=== PATIENT | female | born 1940 | race Caucasian/White ===

== ENCOUNTER → 2017-12-05 09:39 | Outpatient (CLI) | payer MEDICARE, SELFPAY ==
--- NOTE | 2017-12-05 09:42 | MM_ITS ---
MM Dig screening mamm BI w/CAD ORDERING PHYSICIAN : Willie Durant MD PATIENT AGE: 77 years GENDER: Female COMPARISON: Bilateral mammogram May 2016 & March INDICATION: ITS.REASON: SCREENING no hormones no new complaints. Right breast tenderness. TECHNIQUE: Standard CC and MLO images were obtained. R2 CAD reviewed. FINDINGS: November replacement with overall low-density breast. RIGHT BREAST:No new areas of concern follow-up in one year. No new findings at the right breast account for the patient's right tenderness. No edema and no skin thickening no remarkable axillary nodes seen nor included on this images LEFT BREAST:Stable small nodular density inferior left breast is unchanged since March 2015.. Stable Benign-appearing nodule with minimal calcification can be followed. IMPRESSION: Stable mammogram with No significant new findings . No new areas of concern . Bilateral follow-up in one year recommended. Stable small nodular density inferior left breast. Follow-up in one year the adequate BI-RADS Category: 2 Benign Finding(s) RECOMMENDED FOLLOW-UP: 1YR 1 YEAR FOLLOW-UP (A letter has been sent to the patient regarding results of the study.)
== END ==
PROVIDERS: Family Provider Family Medicine; PCP Family Medicine; Visit Provider Family Medicine
DX: Z12.31 Encounter for screening mammogram for malignant neoplasm of breast (principal)
CPT/HCPCS: 77067

== ENCOUNTER → 2018-06-27 10:37 | Outpatient (CLI) | payer MEDICARE, SELFPAY ==
[2018-06-27 11:31] LABS: Basophils # 0.1 K/mm3 (0-0.2); Eosinophils # 0.3 K/mm3 (0.0-0.4); Eosinophils % 4.5 % (0.1-12.0); Hematocrit 40.4 % (37.0-47.0); Hemoglobin 12.6 g/dL (12.2-16.2); Lymphocytes # 2.9 K/mm3 (0.7-4.5); Lymphocytes % 41.9 % (10-50); Mean Corpuscular HGB Conc 31.1 g/dL (31.8-35.4); Mean Corpuscular Hemoglobin 21.2 pg (27.0-31.2); Mean Corpuscular Volume 68.2 fl (81-99); Mean Platelet Volume 7.8 fl (7.4-10.4); Monocytes # 0.6 K/mm3 (0.1-1.0); Monocytes % 8.1 % (1.7-9.3); Neutrophils # 3.1 K/mm3 (1.8-7.8); Neutrophils % 44.6 % (37.0-80.0); Platelet Count 186 K/mm3 (142-424); Red Blood Count 5.92 M/mm3 (4.20-5.40); Red Cell Distribution Width 15.2 % (11.5-17.5); White Blood Count 6.9 K/mm3 (4.8-10.8)
[2018-06-27 12:03] LABS: Alanine Aminotransferase 28 U/L (12-78); Albumin Level 3.9 gm/dL (3.4-5.0); Albumin/Globulin Ratio 1.2 (1.1-1.8); Anion Gap 14.4 mEq/L (5-15); Aspartate Amino Transferase 19 U/L (15-37); Bilirubin,Total 1.2 mg/dL (0.2-1.0); Calcium 9.5 mg/dL (8.5-10.1); Carbon Dioxide 29 mmol/L (21.0-32.0); Chloride 103 mmol/L (98-107); Creatinine,Serum 0.97 mg/dL (0.55-1.02); Estimated Glomerular Filt Rate 56 ml/min (>60); GFR (African American) 67 ML/MIN (>60); Globulin 3.3 gm/dl (1.3-3.2); Glucose 115 mg/dL (74-106); Potassium 4.4 mmoL/L (3.5-5.1); Sodium 142 mmol/L (136-145); Total Protein,Serum 7.2 gm/dL (6.4-8.2)
[2018-06-27 12:04] LABS: Alkaline Phosphatase 53 U/L (46-116)
[2018-06-27 12:09] LABS: Blood Urea Nitrogen 20 mg/dL (7-18)
[2018-06-27 18:02] VITALS: BMI 31.2
[2018-06-27 19:37] LABS: Ferritin 343 ng/mL (8-388)
[2018-06-29 08:17] LABS: Iron 135 ug/dL (27-139); UIBC 187 ug/dL (118-369)
[2018-06-29 11:02] LABS: Iron Saturation 42 % (15-55)
== END ==
PROVIDERS: Visit Provider Internal Medicine Medical Oncology
DX: D46.9 Myelodysplastic syndrome, unspecified (principal)
CPT/HCPCS: 36415; 80053; 82728; 83540; 83550; 85025

== ENCOUNTER → 2019-03-07 12:42 | Outpatient (CLI) | payer MEDICARE, SELFPAY ==
--- NOTE | 2019-03-07 12:45 | MM_ITS ---
PROCEDURE: MM DIG SCREENING MAMM BI W/CAD Patient Age:78Y CLINICAL INDICATION: SCREENING No hormones, no new complaints clinically. Noncontributory family history. COMPARISON: [facility]MSB DIG MAMM-SCREEN LIT from 03/26/2015 DMDBAV DIG MAMM-DX LIT W ADD VIEWS from 04/12/2015 [facility] DIG MAMM-SCREEN LIT W/CAD from 05/08/2016 DMDXUAVR DIG MAMM-DX UNI A/VW-RT W/CAD from 06/26/2016 [facility] MM Dig screening mamm BI w/CAD from 12/05/2017 TECHNIQUE: Standard CC and MLO images were obtained. R2 CAD reviewed. FINDINGS: Low-density breast with diffuse fatty replacement.. Mammography is most optimal screening tool breast of this low-density character. No new areas of significant concern. Right breast: Stable. Follow-up in 1 year recommended . Tiny area of nodularity lateral breast CC view unchanged since studies dating back to 2014 Left breast: Area of nodularity inferior left breast with small calcification again noted and appears stable to MLO view but margins not quite as well defined on CC view but I believe this area can be followed in 1 year given its longstanding stability on MLO view. Stable since at least 2014. A single calcification is noted at its inferior margin But would encourage ongoing follow-up in 1 year IMPRESSION: Stable bilateral mammogram. No new areas significant concern Small nodular densities bilaterally appear stable Specifically note small 4.3 mm area inferior left breast-no significant change since 2014 However continue to suggest annual mammography to follow these features Follow-up in 1 year would be recommended and encouraged BI-RAD Category: 2 Benign Finding(s) FOLLOW-UP: 1YR 1 Year Follow-up (A letter has been sent to the patient regarding results of the study.) Dictated by: Ahsan Laurent MD 03/09/2019 10:28 Electronically signed by Ahsan Laurent MD in [place] 03/12/2019 10:07
== END ==
PROVIDERS: PCP Family Medicine; Visit Provider Family Medicine
DX: Z12.31 Encounter for screening mammogram for malignant neoplasm of breast (principal)
CPT/HCPCS: 77067

== ENCOUNTER → 2020-01-08 12:06 | Outpatient (CLI) | payer MEDICARE, SELFPAY ==
--- NOTE | 2020-01-08 | XR_ITS ---
PROCEDURE: XR WRIST LT 2V CLINICAL INDICATION: PAIN OF L THUMB COMPARISON: No exams were available for comparison FINDINGS: No fracture or dislocation. No lytic or blastic change. There is normal mineralization. The joint spaces are well-preserved. No significant degenerative/arthritic changes. No erosive changes evident. Other findings:None. IMPRESSION: No acute findings. Dictated by: Jose Francisco Arenas MD 01/08/2020 16:28 Jose Francisco Arenas MD in [facility] 01/08/2020 16:28
--- NOTE | 2020-01-08 | XR_ITS ---
PROCEDURE: XR FINGER LT MIN 2V CLINICAL INDICATION: PAIN OF L THUMB COMPARISON: CR XR WRIST LT 2V from 01/08/2020 FINDINGS: No fracture or dislocation. No lytic or blastic change. There is normal mineralization. Osteoarthritic changes are present at the interphalangeal joint. There is a separate calcific density along the dorsal aspect of the interphalangeal joint which could be due to an avulsion fracture age indeterminate. Other findings:None. 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
== END ==
PROVIDERS: PCP Family Medicine; Visit Provider Family Medicine
DX: M79.645 Pain in left finger(s) (principal)
CPT/HCPCS: 73100; 73140

== ENCOUNTER → 2020-01-16 07:40 | Outpatient (CLI) | payer MEDICARE, SELFPAY ==
--- NOTE | 2020-01-16 07:44 | MR_ITS ---
PROCEDURE: MR LUMBAR SPINE WO CON CLINICAL INDICATION: LUMBAGO WITH SCIATICA bilateral posterior leg pain and tingling. x1yr. no injury. prior x-ray- 08-15-16 COMPARISON: CR LS5 LUMBAR SPINE 5 VIEWS from 08/15/2016 TECHNIQUE: Routine multiplanar multi echo sequences are performed without and with gadolinium enhancement. FINDINGS: There is normal alignment. The spinal cord ends at the T12-L1 level. There is multilevel lower thoracic and lumbar spondylosis as detailed below T10-T11: Degenerative disc disease. T11-T12: Degenerative disc disease with bulging disc with canal stenosis. There may be a small central disc protrusion. This level is only imaged in the sagittal plane. There appears to be some impingement upon the anterior and central aspect of the cord with mild cord flattening. T12-L1: Degenerative disc disease with type 1 endplate changes anteriorly. There is bulging disc with facet ligamentum hypertrophy with bilateral lateral recess narrowing L1-L2: Degenerative disc disease with anterior osteophytes and 2 endplate changes with bulging disc along with facet and ligamentum hypertrophy causing right lateral recess narrowing and moderate to severe right-sided foraminal narrowing. There is canal stenosis. L2-L3: Degenerate disc disease with bulging disc with facet and ligamentum hypertrophy with bilateral lateral recess narrowing and moderate to severe bilateral foraminal narrowing with canal stenosis. The canal measures 8 mm. L3-L4: Degenerate disc disease with bulging disc along with facet and ligamentum hypertrophy with moderate to severe bilateral lateral recess and foraminal narrowing. L4-5: Degenerate disc disease with bulging disc. There is 4 mm anterolisthesis of L4 with severe facet and ligamentum hypertrophy with severe bilateral lateral recess and foraminal narrowing and severe canal stenosis with canal measuring 6 mm in AP dimension. L5-S1: Bulging disc with facet ligamentum hypertrophy with mild bilateral foraminal narrowing left greater than right. IMPRESSION: Abnormal MRI of the lumbar spine. There is multilevel lumbar spondylosis with bulging disc along with facet and ligamentum hypertrophy and endplate spurring with resultant varying degrees lateral recess and foraminal narrowing and canal stenosis greatest at the L4-5 level. Please see above for detailed description at each level. Dictated by: Jose Francisco Arenas MD 01/17/2020 12:23 Jose Francisco Arenas MD in [facility] 01/17/2020 12:23
== END ==
PROVIDERS: PCP Family Medicine; Visit Provider Family Medicine
DX: M54.42 Lumbago with sciatica, left side (principal); M54.41 Lumbago with sciatica, right side; M51.36 Other intervertebral disc degeneration, lumbar region; M47.816 Spondylosis without myelopathy or radiculopathy, lumbar region
CPT/HCPCS: 72148; 76376

== ENCOUNTER 2020-10-16 17:00 | Observation (INO) | payer MEDICARE, SELFPAY ==
[2020-10-16] VITALS (10 sets, daily range): BP systolic 99–122; BP diastolic 45–57; PULSE 64–78; RESP 18; TEMP 36.7–37.8; O2SAT 93–98; BMI 27.8; BMI 30.4
[2020-10-16 17:52] LABS: Eosinophils # 0.1 K/mm3 (0.0-0.4); Eosinophils % 0.8 % (0.1-12.0)
[2020-10-16 17:55] LABS: Alanine Aminotransferase 219 U/L (12-78); Albumin/Globulin Ratio 1.3 (1.1-1.8); Alkaline Phosphatase 68 U/L (38-126); Aspartate Amino Transferase 344 U/L (14-36); Basophils % 0.4 % (0.1-2.0); Bilirubin,Total 2.3 mg/dl (0.2-1.3); Blood Urea Nitrogen 19 mg/dl (7-17); Calcium 8.8 mg/dl (8.4-10.2); Carbon Dioxide 25 mmol/L (22.0-30.0); Chloride 99 mmol/L (98-107); Creatinine Clearance Estimated 50 mL/min (50-200); Estimated Glomerular Filt Rate 60 ml/min (>60); GFR (African American) 73 ML/MIN (>60); Globulin 3.1 g/dL (1.3-3.2); Glucose 114 mg/dl (74-100); Hematocrit 34.1 % (37.0-47.0); Hemoglobin 10.9 g/dL (12.2-16.2); Lymphocytes # 0.2 K/mm3 (0.7-4.5); Lymphocytes % 4.2 % (10-50); Mean Corpuscular HGB Conc 31.9 g/dL (31.8-35.4); Mean Corpuscular Volume 65.8 fl (81-99); Mean Platelet Volume 7.7 fl (7.4-10.4); Monocytes # 0.2 K/mm3 (0.1-1.0); Monocytes % 3.8 % (1.7-9.3); Neutrophils # 5.2 K/mm3 (1.8-7.8); Neutrophils % 90.8 % (37.0-80.0); Platelet Count 123 K/mm3 (142-424); Red Blood Count 5.18 M/mm3 (4.20-5.40); Red Cell Distribution Width 14.4 % (11.5-17.5); Sodium 133 mmol/L (136-145); Total Protein,Serum 7.1 g/dl (6.3-8.2); White Blood Count 5.7 K/mm3 (4.8-10.8)
[2020-10-16 17:56] LABS: MANUAL DIFFERENTIAL MANUAL DIFFERENTIAL (MANUAL DIFF)
[2020-10-16 18:13] LABS: Anisocytosis 2+; Eosinophils % 1 % (0-3); Hypochromasia 2+; Lymphocytes % 6 % (10-50); Microcytosis 2+; Monocytes % 3 % (2-9); Neutrophils % 89 % (42-76); Platelet Estimate Slight Decrease; Total Cells Counted 100
--- NOTE | 2020-10-16 18:16 | CT_ITS ---
PROCEDURE INFORMATION: Exam: CT Abdomen And Pelvis With Contrast Exam date and time: 10/16/20 06:16 PM Age: 79 years old Clinical indication: Other: Painful urination; Additional info: Abd pain TECHNIQUE: Imaging protocol: Computed tomography of the abdomen and pelvis with contrast. Radiation optimization: All CT scans at this facility use at least one of these dose optimization techniques: automated exposure control; mA and/or kV adjustment per patient size (includes targeted exams where dose is matched to clinical indication); or iterative reconstruction. Contrast material: ISOVUE; Contrast volume: 75 ml; Contrast route: IV; COMPARISON: No relevant prior studies available. FINDINGS: Tubes, catheters and devices: None noted. Lungs: Lung bases appear clear. Heart: No significant coronary calcifications. No cardiomegaly. No significant pericardial effusion. Liver: Normal. No mass. Gallbladder and bile ducts: Cholecystectomy. No ductal dilation. Pancreas: Normal. No ductal dilation. Spleen: Normal. No splenomegaly. Adrenal glands: Normal. No mass. Kidneys and ureters: 17 mm right upper pole renal cystic mass, Bosniak 2 F. No hydronephrosis. Stomach and bowel: Unremarkable. No obstruction. No mucosal thickening. Appendix: No evidence of appendicitis. Intraperitoneal space: Unremarkable. No free air. No significant fluid collection. Retroperitoneal space: No significant retroperitoneal inflammatory changes are noted. Vasculature: Unremarkable. No abdominal aortic aneurysm. Lymph nodes: Unremarkable. No enlarged lymph nodes. Urinary bladder: Unremarkable as visualized. Reproductive: Unremarkable as visualized. Bones/joints: Unremarkable. No acute fracture. Soft tissues: Small right upper quadrant anterior abdominal wall hernia 8 mm defect contains fat with mild inflammatory change. Possible trocar site for cholecystectomy. IMPRESSION: 1. 17 mm right upper pole cyst, Bosniak 2 F. 2. Cholecystectomy. 3. Small defect anterior abdominal wall contains fat. COMMENTS: Consistent with the [employer]'s Incidental Findings Committee white paper (J Am Cheryl Radiol 2018): Any incidental renal lesion less than 1 cm or classified as too small to characterize, or any incidental cystic renal lesion characterized as simple-appearing, is likely benign. No follow-up imaging is recommended for these lesions per consensus recommendations based on imaging criteria.
--- NOTE | 2020-10-16 18:17 | HMH.EDGENADL ---
ED Disposition Clinical Impression: Acute UTI, Transaminitis Disposition: Admitted As Inpatient Condition on Discharge: Fair Referrals: Willie Durant MD [Primary Care Provider] - - Critical Care Critical Care Time: No Attestation: On 10/16/20, the high probability of a clinically significant, sudden or life threatening deterioration of the following system(s) required my full and direct attention, intervention and personal management. The time I documented below is in addition to time spent performing reported procedures but includes the following listed in this critical care notation. Medical Decision Making - Medical Records Medical records reviewed: Yes: I reviewed the patient's medical records. - Chai Inquiry Pt receiving controlled substance: No Vital Signs: 10/16/20 17:01 10/16/20 17:30 10/16/20 18:00 Temperature 100.1 F H Temperature Source Oral Pulse Rate 78 68 Pulse Rate [Right] 74 Respiratory Rate 18 Blood Pressure 100/45 L 109/46 L Blood Pressure [Right Arm] 122/51 L Blood Pressure Mean [Right Arm] 74 02 Sat by Pulse Oximetry 98 94 L 93 L 10/16/20 19:00 Temperature Temperature Source Pulse Rate 66 Pulse Rate [Right] Respiratory Rate Blood Pressure 99/46 L Blood Pressure [Right Arm] Blood Pressure Mean [Right Arm] 02 Sat by Pulse Oximetry 96 - Lab Data Lab Results 10/16/20 17:23: WBC 5.7, RBC 5.18, Hgb 10.9 L, Hct 34.1 L, MCV 65.8 L, MCH 21.0 L, MCHC 31.9, RDW 14.4, Plt Count 123 L, MPV 7.7, Neut % (Auto) 90.8 H, Lymph % (Auto) 4.2 L, [place] % (Auto) 3.8, Eos % (Auto) 0.8, Baso % (Auto) 0.4, Neut # (Auto) 5.2, Lymph # (Auto) 0.2 L, [place] # (Auto) 0.2, Eos # (Auto) 0.1, Baso # (Auto) 0.0, Total Counted 100, Neutrophils % (Manual) 89 H, Band Neutrophils % 1.0, Lymphocytes % (Manual) 6 L, Monocytes % (Manual) 3, Eosinophils % (Manual) 1, Platelet Estimate Slight decrease, Hypochromasia 2+, Anisocytosis 2+, Microcytosis 2+ 10/16/20 17:23: Sodium 133 L, Potassium 3.0 L, Chloride 99, Carbon Dioxide 25, Anion Gap 12.0, BUN 19 H, Creatinine 0.90, Estimated Creat Clear 50, Estimated GFR 60, Est GFR ( Amer) 73, Glucose 114 H, Calcium 8.8, Total Bilirubin 2.3 H, AST 344 H*, ALT 219 H, Alkaline Phosphatase 68, Total Protein 7.1, Albumin 4.0, Globulin 3.1, Albumin/Globulin Ratio 1.3 Result diagrams: 10/16/20 17:23 10/16/20 17:23 Orders (Tests/Meds): ED MEDICATIONS Generic Name Dose Route Start Last Admin Trade Name Freq PRN Reason Stop Dose Admin Sodium Chloride 1,000 mls @ 999 mls/hr 10/16/20 17:45 10/16/20 17:55 Sod Chlor 0.9% 1000ml Bag IV 10/16/20 18:45 999 mls/hr .Q1H1M NIKITA Administration Ceftriaxone Sodium 1 gm/ 50 mls @ 100 mls/hr 10/16/20 17:45 10/16/20 17:56 Sodium Chloride IV 10/30/20 17:44 100 mls/hr Q24H NIKITA Administration Protocol Discontinued Medications Generic Name Dose Route Start Last Admin Trade Name Freq PRN Reason Stop Dose Admin Iopamidol 75 ml 10/16/20 18:36 10/16/20 18:37 Iopamidol-370 (76%);100ml Bottle IV 10/16/20 18:37 75 ml ONCE ONE Administration Sodium Chloride 10 ml 10/16/20 18:36 10/16/20 18:37 Sodium Chloride 0.9% 10ml Syr (Rad Only) IV 10/16/20 18:37 10 ml ONCE ONE Administration ORDERS Category Date Time Status Hepatitis Panel (4) Stat Lab 10/16/20 19:41 Ordered Urinalysis and Microscopic Stat Lab 10/16/20 17:43 Ordered - CT Data CT Scan: Abdomen, Pelvis Time Received: 19:[address] Reviewed: Yes: I have reviewed the patient's CT results, I have viewed the radiologist's interpretation Findings Narrative: IMPRESSION: 1. 17 mm right upper pole cyst, Bosniak 2 F. 2. Cholecystectomy. 3. Small defect anterior abdominal wall contains fat. - Reevaluation(s) Time: 19:54 Reevaluation #1: On reevaluation, patient is feeling better. She does have some elevated transaminase levels. These appear to be new. Hepatitis panel sent off. Patient be contin
[2020-10-16 18:27] LABS: Coronavirus 19, PCR Not Detected (NotDetected); Influenza A, PCR Not Detected (NotDetected); Influenza B, PCR Not Detected (NotDetected)
--- NOTE | 2020-10-16 19:56 | PC.NURSE ---
paged dr valle @ this time
--- NOTE | 2020-10-16 20:03 | PC.NURSE ---
JOSHUA Pike on phone with dr valle
[2020-10-16 20:15] LABS: Microscopic, Urine URINE MICROSCOPIC (MICROSCOPIC)
[2020-10-16 20:20] LABS: Appearance,Urine SL CLOUDY (Clear); Bilirubin,Urine Negative (Negative); Blood, Urine Negative (Negative); Color,Urine YELLOW (Yellow); Glucose,Urine (UA) Negative (Negative); Ketones,Urine Negative (Negative); Leukocyte Esterase,Urine Negative (Negative); Nitrate,Urine Negative (Negative); PH,Urine 6.5 (5.0-8.5); Protein,Urine Negative (Negative); Specific Gravity, Urine <= 1.005 (1.005-1.030)
[2020-10-16 20:27] LABS: Bacteria,Urine Trace /lpf; WBC,Urine Occasional #/hpf (0-3)
--- NOTE | 2020-10-16 21:01 | PC.NURSE ---
patient up to floor via Stretcher.
[2020-10-17 06:08] LABS: Eosinophils # 0.1 K/mm3 (0.0-0.4); Lymphocytes # 0.5 K/mm3 (0.7-4.5); Lymphocytes % 10.5 % (10-50); Monocytes # 0.2 K/mm3 (0.1-1.0); Neutrophils # 4.2 K/mm3 (1.8-7.8); Red Cell Distribution Width 14.8 % (11.5-17.5); White Blood Count 5.1 K/mm3 (4.8-10.8)
[2020-10-17 06:12] LABS: Chloride 101 mmol/L (98-107); Sodium 132 mmol/L (136-145)
[2020-10-17 06:14] LABS: Alanine Aminotransferase 148 U/L (12-78); Aspartate Amino Transferase 157 U/L (14-36); Blood Urea Nitrogen 16 mg/dl (7-17); Creatinine Clearance Estimated 53 mL/min (50-200); Estimated Glomerular Filt Rate 69 ml/min (>60); GFR (African American) 84 ML/MIN (>60)
[2020-10-17 06:15] LABS: Albumin Level 3.2 g/dl (3.5-5.0); Albumin/Globulin Ratio 1.1 (1.1-1.8); Alkaline Phosphatase 63 U/L (38-126); Anion Gap 5.8 mEq/L (5-15); Calcium 8.1 mg/dl (8.4-10.2); Carbon Dioxide 28 mmol/L (22.0-30.0); Globulin 2.8 g/dL (1.3-3.2); Glucose 91 mg/dl (74-100)
[2020-10-17 06:16] LABS: Basophils % 0.4 % (0.1-2.0); Eosinophils % 2.3 % (0.1-12.0); Hematocrit 29.8 % (37.0-47.0); Hemoglobin 9.9 g/dL (12.2-16.2); Mean Corpuscular HGB Conc 33.3 g/dL (31.8-35.4); Mean Corpuscular Hemoglobin 21.3 pg (27.0-31.2); Mean Platelet Volume 7.8 fl (7.4-10.4); Neutrophils % 82.8 % (37.0-80.0); Platelet Count 108 K/mm3 (142-424); Red Blood Count 4.65 M/mm3 (4.20-5.40)
--- NOTE | 2020-10-17 06:16 | PC.NURSE ---
No acute changes since pt arrived to the floor. Pt denies any discomfort at this time. Pt has ambulated to BR without any difficulty. Medications administered per mar. No concerns at this time. Will continue to monitor.
[2020-10-17 06:18] LABS: Potassium 2.8 mmoL/L (3.5-5.1)
[2020-10-17 07:50] VITALS: BP 101/45; PULSE 67; RESP 14; TEMP 37.8; O2SAT 94
[2020-10-17 08:00] VITALS: PULSE 67; RESP 14; O2SAT 94
--- NOTE | 2020-10-17 08:27 | P.CONPHA_ITS ---
[facility] Pharmacy VTE Monitoring - Patient Demographics Admission date: 10/16/20 Report Date: 10/17/20 Time: 08:27 Allergies/Adverse Reactions: Patient Allergies egg yolk Allergy (Severe, Verified 10/16/20 21:17) rash Milk Containing Products Allergy (Severe, Verified 10/16/20 21:17) rash Height: 1.55 m Weight: 73.119 kg Patient Problems: Current Active Problems Acute UTI (Acute) Transaminitis (Acute) - VTE Risk Labs: VTE Related Lab Results Hgb 9.9 g/dL (12.2-16.2) L 10/17/20 05:34 Hct 29.8 % (37.0-47.0) L 10/17/20 05:34 Plt Count 108 K/mm3 (142-424) L 10/17/20 05:34 BUN 16 mg/dl (7-17) 10/17/20 05:34 Creatinine 0.80 mg/dl (0.52-1.04) 10/17/20 05:34 Estimated Creat Clear 53 mL/min (50-200) 10/17/20 05:34 Was VTE Risk Assessment Performed: Yes VTE Score: 3 VTE Risk Level: Low Risk - Prophylaxis VTE Prophylaxis Ordered?: Yes Types of VTE Prophylaxis: TEDS Knee High, Pharmacological Location of Applied Device: Bilateral Lower Extremeties Pharmacologic Type: Heparin
--- NOTE | 2020-10-17 08:50 | HMH.PHAINT ---
MEDICATION RECONCILIATION COMPLETED ON PATIENT USING EXTERNAL FILL HISTORY FROM PHARMACY AND PATIENT'S OWN MEDICATIONS. -LOIS CHINCHILLAD
--- NOTE | 2020-10-17 09:39 | HMH.HP ---
*Admission Date: 10/16/20 *Chief complaint: Weakness *History of present illness: 79 year old female presented to [facility] ER yesterday complaining of being to weak to stand. Patient was diagnosed with a UTI on 10/15/20 after having a 3 day history of urinary frequency and dysuria. A urine culture was ordered and she was prescribed Macrobid. She states she started taking Macrobid that day but began to have fevers and chills the next evening and became progressively weak. She did not feel like eating and also had some headache. [facility] History Medical History: Reports:: Anxiety, Hypertension *Have you ever received a pneumonia vaccine?: Yes *Have you received a flu vaccine this season?: Yes Other Medical History: Reports: Hypothyroidism, Other (Myelodysplastic syndrome) Other Surgeries: Yes: Cholecystectomy, Colonoscopy, Dilation and Curettage - *Social History Smoking Status: Never smoker Alcohol Intake: never *Occupational Status:: retired *Travel in the last 8 weeks: None Family Hx:: Cancer Review of Systems - Constitutional Reports chills, Reports fever(s) - Eyes Denies change in vision - ENT Denies bleeding gums - *Cardiovascular Denies chest pain - *Respiratory Denies cough - *Gastrointestinal Denies abdominal pain - *Musculoskeletal Denies joint pain - Integumentary/Breasts Denies rash - *Neurologic Reports headache(s) - Psychiatric Reports anxiety, Denies behavioral changes, Denies depression, Denies irritability - Hematologic/Lymphatic Denies easy bruising Meds Home Medications Medication Instructions Recorded Confirmed Type atenolol 50 mg-chlorthalidone 25 1 tab PO DAILY 06/27/18 10/16/20 History mg tablet levothyroxine 100 mcg capsule 100 mcg PO DAILY 06/27/18 10/16/20 History mecobalamin (vitamin B12) 1,000 1,000 mcg SL DAILY 06/27/18 10/17/20 History mcg disintegrating tablet,sublingual Aspirin 81 mg PO DAILY 10/16/20 10/17/20 History Nitrofurantoin Monohyd/M-Cryst 100 mg PO BID 10/16/20 10/16/20 History [Nitrofurantoin Placer-Mcr 100 mg] Escitalopram Oxalate [Lexapro] 5 mg PO DAILY 10/17/20 10/17/20 History Allergies Allergy/AdvReac Type Severity Reaction Status Date / Time egg yolk Allergy Severe rash Verified 10/16/20 21:17 Milk Containing Products Allergy Severe rash Verified 10/16/20 21:17 Exam Vital signs and Labs for Last 24 Hours: Temp Pulse Resp BP Pulse Ox 100.1 F H 67 14 101/45 L 94 L 10/17/20 07:50 10/17/20 08:00 10/17/20 08:00 10/17/20 07:50 10/17/20 08:00 Laboratory Results - last 24 hr 10/16/20 17:23: WBC 5.7, RBC 5.18, Hgb 10.9 L, Hct 34.1 L, MCV 65.8 L, MCH 21.0 L, MCHC 31.9, RDW 14.4, Plt Count 123 L, MPV 7.7, Neut % (Auto) 90.8 H, Lymph % (Auto) 4.2 L, [place] % (Auto) 3.8, Eos % (Auto) 0.8, Baso % (Auto) 0.4, Neut # (Auto) 5.2, Lymph # (Auto) 0.2 L, [place] # (Auto) 0.2, Eos # (Auto) 0.1, Baso # (Auto) 0.0, Total Counted 100, Neutrophils % (Manual) 89 H, Band Neutrophils % 1.0, Lymphocytes % (Manual) 6 L, Monocytes % (Manual) 3, Eosinophils % (Manual) 1, Platelet Estimate Slight decrease, Hypochromasia 2+, Anisocytosis 2+, Microcytosis 2+ 10/16/20 17:23: Sodium 133 L, Potassium 3.0 L, Chloride 99, Carbon Dioxide 25, Anion Gap 12.0, BUN 19 H, Creatinine 0.90, Estimated Creat Clear 50, Estimated GFR 60, Est GFR ( Amer) 73, Glucose 114 H, Calcium 8.8, Total Bilirubin 2.3 H, AST 344 H*, ALT 219 H, Alkaline Phosphatase 68, Total Protein 7.1, Albumin 4.0, Globulin 3.1, Albumin/Globulin Ratio 1.3 10/16/20 20:00: Urine Color Yellow, Urine Appearance Sl cloudy, Urine pH 6.5, Ur Specific [place] <= 1.005, Urine Protein Negative, Urine Glucose (UA) Negative, Urine Ketones Negative, Urine Blood Negative, Urine Nitrate Negative, Urine Bilirubin Negative, Urine Urobilinogen 1.0, Ur Leukocyte Esterase Negative, Urine WBC Occasional, Ur Squamous Epith Cells 5-10, Urine Bacteria Trace 10/17/20 05:34: WBC 5.1, RBC 4.65, Hgb 9.9 L, Hct 29.8 L, MCV 64.0 L, M
--- NOTE | 2020-10-17 11:26 | PC.NURSE ---
Pt showered independently, tolerated well. Linens changed per staff.
[2020-10-17 15:54] VITALS: BP 115/57; PULSE 61; RESP 16; TEMP 36.5; O2SAT 99
--- NOTE | 2020-10-17 17:28 | PC.NURSE ---
Pt has been pleasant and cooperative this shift. A&O X4. No complaints of pain or SOA. Pt is on room air with sats. >90%. Lungs CTA. No edema noted. Skin is C/D/I. Pt ambulates with stand-by assistance to/from the bathroom and throughout the room. Pt voids clear, yellow urine without issue. No BM thus far today. Appetite is good and pt eats 75-100% of every meal. 20 G peripheral IV in the RT AC is patent and infusing D5W NS w/ 40 K+ @ 100 ML/HR. VSS. Call light within reach. Will continue to monitor.
[2020-10-17 19:55] VITALS: BP 125/61; PULSE 58; RESP 16; TEMP 36.7; O2SAT 97
[2020-10-18 03:21] VITALS: BP 147/67; PULSE 65; RESP 16; TEMP 36.8; O2SAT 98
[2020-10-18 05:00] VITALS: BMI 31.8
--- NOTE | 2020-10-18 06:00 | PC.NURSE ---
patient has rested well throughout shift. has voiced no complains of nausea, vomiting, diarrhea, pain or soa. ambulates to restroom without difficulty.
[2020-10-18 06:15] LABS: Basophils % 0.6 % (0.1-2.0); Eosinophils # 0.4 K/mm3 (0.0-0.4); Eosinophils % 10.1 % (0.1-12.0); Hematocrit 30.9 % (37.0-47.0); Hemoglobin 9.8 g/dL (12.2-16.2); Lymphocytes # 1.2 K/mm3 (0.7-4.5); Lymphocytes % 27.4 % (10-50); Mean Corpuscular HGB Conc 31.7 g/dL (31.8-35.4); Mean Corpuscular Hemoglobin 21.1 pg (27.0-31.2); Mean Corpuscular Volume 66.5 fl (81-99); Mean Platelet Volume 8.3 fl (7.4-10.4); Monocytes # 0.3 K/mm3 (0.1-1.0); Monocytes % 7.9 % (1.7-9.3); Neutrophils # 2.4 K/mm3 (1.8-7.8); Platelet Count 100 K/mm3 (142-424); Red Blood Count 4.65 M/mm3 (4.20-5.40); Red Cell Distribution Width 14.9 % (11.5-17.5); White Blood Count 4.4 K/mm3 (4.8-10.8)
[2020-10-18 06:28] LABS: Chloride 109 mmol/L (98-107); Sodium 138 mmol/L (136-145)
[2020-10-18 06:30] LABS: Alanine Aminotransferase 134 U/L (12-78); Aspartate Amino Transferase 111 U/L (14-36); Blood Urea Nitrogen 10 mg/dl (7-17); Creatinine Clearance Estimated 53 mL/min (50-200); Estimated Glomerular Filt Rate 81 ml/min (>60); GFR (African American) 98 ML/MIN (>60)
[2020-10-18 06:31] LABS: Albumin Level 3.3 g/dl (3.5-5.0); Albumin/Globulin Ratio 1.1 (1.1-1.8); Alkaline Phosphatase 72 U/L (38-126); Bilirubin,Total 0.9 mg/dl (0.2-1.3); Calcium 8.2 mg/dl (8.4-10.2); Carbon Dioxide 25 mmol/L (22.0-30.0); Globulin 2.9 g/dL (1.3-3.2); Glucose 109 mg/dl (74-100); Total Protein,Serum 6.2 g/dl (6.3-8.2)
[2020-10-18 08:00] VITALS: PULSE 66; RESP 16; O2SAT 96
[2020-10-18 08:04] VITALS: BP 122/59; PULSE 66; RESP 16; TEMP 36.9; O2SAT 96
--- NOTE | 2020-10-18 08:55 | HMH.ACPN2 ---
Internal Medicine - PN: Subj *Date: 10/18/20 *Time: 08:55 Interval history: Patient feels better today, no new complaints. Exam Vital signs and Labs for Last 24 Hours: Temp Pulse Resp BP Pulse Ox 98.4 F 66 16 122/59 L 96 10/18/20 08:04 10/18/20 08:04 10/18/20 08:04 10/18/20 08:04 10/18/20 08:04 Laboratory Results - last 24 hr 10/18/20 05:38: WBC 4.4 L, RBC 4.65, Hgb 9.8 L, Hct 30.9 L, MCV 66.5 L, MCH 21.1 L, MCHC 31.7 L, RDW 14.9, Plt Count 100 L, MPV 8.3, Neut % (Auto) 54.0, Lymph % (Auto) 27.4, [place] % (Auto) 7.9, Eos % (Auto) 10.1, Baso % (Auto) 0.6, Neut # (Auto) 2.4, Lymph # (Auto) 1.2, [place] # (Auto) 0.3, Eos # (Auto) 0.4, Baso # (Auto) 0.0 10/18/20 05:38: Sodium 138, Potassium 5.0 D, Chloride 109 H, Carbon Dioxide 25, Anion Gap 9.0, BUN 10 D, Creatinine 0.70, Estimated Creat Clear 53, Estimated GFR 81, Est GFR ( Amer) 98, Glucose 109 H, Calcium 8.2 L, Total Bilirubin 0.9, AST 111 H D, ALT 134 H, Alkaline Phosphatase 72, Total Protein 6.2 L, Albumin 3.3 L, Globulin 2.9, Albumin/Globulin Ratio 1.1 Vital Signs - 24 hr 10/17/20 15:54 10/17/20 19:55 10/18/20 03:21 Temperature 97.7 F 98.1 F 98.2 F Pulse Rate [Apical] 61 Pulse Rate [Left Brachial] Pulse Rate [Right] 58 L 65 Respiratory Rate 16 16 16 Blood Pressure [Left Arm] Blood Pressure [Right Arm] 115/57 L 125/61 147/67 H 02 Sat by Pulse Oximetry 99 97 98 10/18/20 08:04 Temperature 98.4 F Pulse Rate [Apical] Pulse Rate [Left Brachial] 66 Pulse Rate [Right] Respiratory Rate 16 Blood Pressure [Left Arm] 122/59 L Blood Pressure [Right Arm] 02 Sat by Pulse Oximetry 96 I & O for Last 24 hours: Intake & Output 10/15/20 10/16/20 10/17/20 10/18/20 23:59 23:59 23:59 23:59 Intake Total 1000 / 1000 2824 / 2824 Output Total 450 / 450 Balance 1000 / 1000 2374 / 2374 Weight 161 lb 3.2 oz 168 lb 7 oz - Constitutional no acute distress - *Routine HEENT Exam Head: Present: normocephalic Eye: Present: EOMI ENT: Present: mucous membranes moist - *Routine Neck Exam Present: supple. Absent: lymphadenopathy - *Routine Respiratory Exam Present: CTA bilaterally - *Routine Cardiovascular Exam Present: RRR - *Routine Abdominal Exam Present: soft, normoactive bowel sounds. Absent: tenderness - *Routine Extremities Exam Absent: cyanosis, clubbing, edema - *Routine Skin Exam Present: warm. Absent: rash - *Routine Neurological Exam Present: alert, oriented X3 Assessment and Plan (1) Acute UTI Status: Acute Category: Medical Code(s): N39.0 - Urinary tract infection, site not specified (2) HTN (hypertension) Status: Acute Category: Medical Code(s): I10 - Essential (primary) hypertension (3) Hypothyroid Status: Acute Category: Medical Code(s): E03.9 - Hypothyroidism, unspecified (4) MDS (myelodysplastic syndrome) Status: Acute Category: Medical Code(s): D46.9 - Myelodysplastic syndrome, unspecified (5) Anxiety Status: Acute Category: Medical Code(s): F41.9 - Anxiety disorder, unspecified (6) Transaminitis Status: Acute Category: Medical Code(s): R74.01 - Elevation of levels of liver transaminase levels (7) Hypokalemia Status: Acute Category: Medical Code(s): E87.6 - Hypokalemia (8) Weakness Status: Acute Category: Medical Code(s): R53.1 - Weakness - Assessment and plan all Dx Assessment and Plan for all problems:: Patient has improved, possible home later today with oral antibiotics.
--- NOTE | 2020-10-18 09:44 | SW/DCPLANNER ---
PATIENT REQUESTED A SITTERS LIST THIS MORNING FOR HER THAT SHE BROUGHT HOME FROM [facility]... I PROVIDED HER WITH THE LIST AND ENCOURAGED HER TO CHECK REFERENCES... SHE WILL DISCHARGE HOME TODAY AND FAMILY WILL BE STAYING WITH HER UNTIL SHE GETS BACK ON HER FEET. NO OTHER DISCHARGE PLANNING NECESSARY AT THIS TIME..DISCHARGE HOME...
[2020-10-19 06:03] LABS: Hep A Ab, IgM Negative (Negative); Hepatitis B Core Antibody IgM Negative (Negative); Hepatitis B Surface Antigen Negative (Negative); Hepatitis C Antibody <0.1 s/co ratio (0.0-0.9)
--- NOTE | 2020-10-21 16:33 | HMH.DCSUM ---
General - General Admission date:: 10/16/20 Discharge date: 10/18/20 HPI HPI: 79 year old female presented to [facility] ER yesterday complaining of being too weak to stand. Patient was diagnosed with a UTI on 10/15/20 after having a 3 day history of urinary frequency and dysuria. A urine culture was ordered and she was prescribed Macrobid. She states she started taking Macrobid that day but began to have fevers and chills the next evening and became progressively weak. She did not feel like eating and also had some headache. Hospital Course Hospital Course: The patient had an abdominal pelvic CT showing a 17 mm right upper pole cyst, previous cholecystectomy, and a small defect in the anterior abdominal wall containing fat. She was admitted and started on Rocephin. Her LFTs were elevated but did improve. Her potassium was replaced. By 10/18/2020, she felt better and was stable to be discharged home on oral antibiotics. She will follow-up with Dr. Durant in the office. Objective Vital signs: Temp Pulse Resp BP Pulse Ox 98.4 F 66 16 122/59 L 96 10/18/20 08:04 10/18/20 08:04 10/18/20 08:04 10/18/20 08:04 10/18/20 08:04 Narrative: - Constitutional no acute distress - *Routine HEENT Exam Head: Present: normocephalic Eye: Present: EOMI, PERRL ENT: Present: mucous membranes moist - *Routine Neck Exam Present: supple. Absent: lymphadenopathy - *Routine Respiratory Exam Present: CTA bilaterally - *Routine Cardiovascular Exam Present: RRR - *Routine Abdominal Exam Present: soft, normoactive bowel sounds. Absent: tenderness - *Routine Rectal Exam Rectal:: deferred - *Routine Genitalia Exam Genitalia:: deferred - *Routine Extremities Exam Absent: cyanosis, clubbing, edema - Routine Back/Spine/Pelvis Exam Back/Spine: Absent: CVA tenderness - *Routine Skin Exam Present: warm. Absent: rash - *Routine Neurological Exam Present: alert, oriented X3 DS: Diagnosis - Discharge Diagnosis (1) Acute UTI Status: Acute (2) HTN (hypertension) Status: Acute (3) Hypothyroid Status: Acute (4) MDS (myelodysplastic syndrome) Status: Acute (5) Anxiety Status: Acute (6) Transaminitis Status: Acute (7) Hypokalemia Status: Acute (8) Weakness Status: Acute Discharge Plan - Patient Discharge Instructions ACTIVITY: Continue current activity DIET: continue same diet Patient Instructions: DI for Urinary Tract Infection (UTI), DI for Hypokalemia - Follow up Plan Follow up with: Willie Durant MD [Primary Care Provider] - 10/22/20 11:00 am Condition at discharge:: Improved Home Medications: Home Medications Medication Instructions Recorded Confirmed Type atenolol 50 mg-chlorthalidone 25 1 tab PO DAILY 06/27/18 10/16/20 History mg tablet levothyroxine 100 mcg capsule 100 mcg PO DAILY 06/27/18 10/16/20 History mecobalamin (vitamin B12) 1,000 1,000 mcg SL DAILY 06/27/18 10/17/20 History mcg disintegrating tablet,sublingual Aspirin 81 mg PO DAILY 10/16/20 10/17/20 History Escitalopram Oxalate [Lexapro] 5 mg PO DAILY 10/17/20 10/17/20 History Cefdinir [Omnicef 300mg Capsule] 300 mg PO BID #14 cap 10/18/20 Rx Prescriptions/Medication Reconciliation: New Cefdinir [Omnicef 300mg Capsule] 300 mg PO BID #14 cap Continued levothyroxine 100 mcg capsule 100 mcg PO DAILY atenolol 50 mg-chlorthalidone 25 mg tablet 1 tab PO DAILY mecobalamin (vitamin B12) 1,000 mcg disintegrating tablet,sublingual 1,000 mcg SL DAILY Aspirin 81 mg PO DAILY Escitalopram Oxalate [Lexapro] 5 mg PO DAILY Discontinued Nitrofurantoin Monohyd/M-Cryst [Nitrofurantoin [place]-Mcr 100 mg] 100 mg PO BID - Problem Reconciliation Problems Reviewed?: Yes
== END 2020-10-18 14:50 ==
LOC: ER 20:05 → 2ND 20:13
PROVIDERS: Admitting Provider Family Medicine; Emergency Provider Emergency Medicine; PCP Family Medicine; Visit Provider Family Medicine
DX: N39.0 Urinary tract infection, site not specified (principal); I10 Essential (primary) hypertension; E03.9 Hypothyroidism, unspecified; D46.9 Myelodysplastic syndrome, unspecified; E87.6 Hypokalemia; R53.1 Weakness
CPT/HCPCS: 74177; 80053; 80074; 81001; 85007; 85025; 96365; 96367; 99284; G0378; Q9967; U0003

== ENCOUNTER → 2021-02-08 11:20 | Outpatient (CLI) | payer MEDICARE, SELFPAY | PROVIDERS: PCP Family Medicine; Visit Provider Nurse Practitioner | DX: Z20.822 Contact with and (suspected) exposure to COVID-19 (principal) | CPT/HCPCS: C9803; U0003; U0005 ==

== ENCOUNTER → 2021-09-06 10:11 | Outpatient (CLI) | payer MEDICARE, SELFPAY ==
--- NOTE | 2021-09-06 10:15 | MM_ITS ---
PROCEDURE INFORMATION: Exam: MG Bilateral Screening 3D Mammography Exam date and time: 09/06/2021 10:25 AM Age: 80 years old Clinical indication: Screening examination. No family history of breast cancer. TECHNIQUE: Imaging protocol: Bilateral Screening tomosynthesis and 2D mammography including computer-aided detection (CAD) when performed. COMPARISON: 1. MG MM DIG SCREENING MAMM BI W/CAD 03/07/2019 1:07 PM 2. MG SCBI MM Dig screening mamm BI w/CAD 12/05/2017 10:09 AM 3. MG DMDXUAVR DIG MAMM-DX UNI A/VW-RT W/CAD 06/26/2016 2:39 PM 4. MG DMSB DIG MAMM-SCREEN LIT W/CAD 05/08/2016 8:48 AM 5. MG DMSB DIG MAMM-SCREEN LIT 03/26/2015 9:32 AM 6. MG DMSB DIGITAL MAMM-SCREEN BILATERAL 03/12/2012 8:55 AM 7. MG DMSB DIGITAL MAMM-SCREEN BILATERAL 08/02/2010 8:28 AM 8. OT DIGMAMMS MAMMOGRAM SCREEN-SERVICE DESK MANAGER N/C 04/27/2009 8:45 AM 9. OT DIGMAMMS MAMMOGRAM SCREEN-SERVICE DESK MANAGER N/C 01/01/2007 8:45 AM FINDINGS: MAMMOGRAPHY: Breast composition: The breasts are almost entirely fatty. Mass: Stable 0.5 cm slightly lobulated mass with calcification since03/26/2015. No new mass. Architectural distortion: None. Calcifications: No suspicious calcifications. Asymmetric density: None. Skin thickening: None. Axillary adenopathy: None. IMPRESSION: No mammographic evidence of malignancy. Annual screening is recommended unless otherwise clinically indicated. ASSESSMENT: BI-RADS Category 2: Benign
== END ==
PROVIDERS: PCP Family Medicine; Visit Provider Family Medicine
DX: Z12.31 Encounter for screening mammogram for malignant neoplasm of breast (principal)
CPT/HCPCS: 77063; 77067

== ENCOUNTER 2021-11-07 11:07 | Emergency (ER) | payer MEDICARE, SELFPAY ==
[2021-11-07 11:09] VITALS: BP 124/63; PULSE 61; RESP 16; TEMP 36.8; O2SAT 98; BMI 31.1
--- NOTE | 2021-11-07 11:10 | HMH.EDUROGF ---
ED Disposition Referrals: Willie Durant MD [Primary Care Provider] - Attestation: On , the high probability of a clinically significant, sudden or life threatening deterioration of the following system(s) required my full and direct attention, intervention and personal management. The time I documented below is in addition to time spent performing reported procedures but includes the following listed in this critical care notation. Female Urogenital HPI - General Stated complaint: uti since 10/31, weakness Time Seen by Provider: 11/07/21 11:10 Mode of Arrival: Ambulatory - History of Present Illness HPI Narrative: The patient complains of several days of dysuria. She states that she has antibiotics without any improvement. She denies any fever, nausea, vomiting, or diarrhea. MD Complaint: dysuria - Related Data Home Medications Medication Instructions Recorded Confirmed atenolol 50 mg-chlorthalidone 25 1 tab PO DAILY 06/27/18 10/16/20 mg tablet levothyroxine 100 mcg capsule 100 mcg PO DAILY 06/27/18 10/16/20 mecobalamin (vitamin B12) 1,000 1,000 mcg SL DAILY 06/27/18 10/17/20 mcg disintegrating tablet,sublingual Aspirin 81 mg PO DAILY 10/16/20 10/17/20 Escitalopram Oxalate [Lexapro] 5 mg PO DAILY 10/17/20 10/17/20 Previous Rx's Medication Instructions Recorded Cefdinir [Omnicef 300mg Capsule] 300 mg PO BID #14 cap 10/18/20 Allergies Allergy/AdvReac Type Severity Reaction Status Date / Time egg yolk Allergy Severe rash Verified 10/16/20 21:17 Milk Containing Products Allergy Severe rash Verified 10/16/20 21:17 [facility] History - Hepatitis A Screen Drug use history?: No Attestation statement:: This patient has been screened for Hepatitis A risk factors. Medical History: Reports:: Anxiety, Hypertension Other Medical History: Reports: Hypothyroidism, Other (Myelodysplastic syndrome) Other Surgeries: Yes: Cholecystectomy, Colonoscopy, Dilation and Curettage - Social History Smoking Status: Never smoker Alcohol Intake: never Occupational Status: retired - Psychiatric History Pschychiatric History:: Reports:: Anxiety Family Hx:: Cancer ROS Obtained: Yes All systems reviewed & no additional complaints
--- NOTE | 2021-11-07 11:17 | HMH.EDGENADL ---
ED Disposition Clinical Impression: Weakness, Hypokalemia, Hypothyroidism (acquired) Disposition: Home, Self-Care Condition on Discharge: Fair Instructions: DI for Muscle Weakness Additional Instructions: Keep all follow-up appointments as scheduled. Return to the emergency department if you feel worse in any way. Referrals: Willie Durant MD [Primary Care Provider] - - Critical Care Critical Care Time: No Attestation: On , the high probability of a clinically significant, sudden or life threatening deterioration of the following system(s) required my full and direct attention, intervention and personal management. The time I documented below is in addition to time spent performing reported procedures but includes the following listed in this critical care notation. Medical Decision Making - Chai Inquiry Pt receiving controlled substance: No Vital Signs: 11/07/21 11:09 11/07/21 11:30 11/07/21 12:07 Temperature 98.2 F Temperature Source Oral Pulse Rate 55 L 54 L Pulse Rate [Radial] 61 Respiratory Rate 16 18 18 Blood Pressure 109/59 L 101/55 L Blood Pressure [Right Arm] 124/63 Blood Pressure Mean 82 77 Blood Pressure Mean [Right Arm] 83 Blood Pressure Position [Right Arm] Sitting 02 Sat by Pulse Oximetry 98 95 93 L Oxygen Delivery Method Room Air Room Air Room Air 11/07/21 13:00 11/07/21 13:30 Temperature Temperature Source Pulse Rate 51 L 51 L Pulse Rate [Radial] Respiratory Rate 18 Blood Pressure 109/53 L 99/53 L Blood Pressure [Right Arm] Blood Pressure Mean 80 77 Blood Pressure Mean [Right Arm] Blood Pressure Position [Right Arm] 02 Sat by Pulse Oximetry 98 97 Oxygen Delivery Method Room Air Room Air - Lab Data Lab results reviewed: Yes: I reviewed the patient's lab results. Lab Results 11/07/21 11:12: Urine Color Yellow, Urine Appearance Clear, Urine pH 6.5, Ur Specific [place] 1.010, Urine Protein Negative, Urine Glucose (UA) Negative, Urine Ketones Negative, Urine Blood Negative, Urine Nitrate Negative, Urine Bilirubin Negative, Urine Urobilinogen 1.0, Ur Leukocyte Esterase Trace, Urine RBC None, Urine WBC None, Ur Squamous Epith Cells Occasional, Urine Bacteria Trace 11/07/21 11:28: WBC 10.2, RBC 5.28, Hgb 10.8 L, Hct 34.8 L, MCV 65.9 L, MCH 20.5 L, MCHC 31.1 L, RDW 15.0, Plt Count 272, MPV 8.9, Neut % (Auto) 76.5, Lymph % (Auto) 10.7, [place] % (Auto) 4.1, Eos % (Auto) 7.2, Baso % (Auto) 1.5, Neut # (Auto) 7.8, Lymph # (Auto) 1.1, [place] # (Auto) 0.4, Eos # (Auto) 0.7 H, Baso # (Auto) 0.2 11/07/21 11:28: Sodium 134 L, Potassium 3.1 L, Chloride 97 L, Carbon Dioxide 30, Anion Gap 10.1, BUN 16, Creatinine 0.80, Estimated Creat Clear 53, Estimated GFR 69, Est GFR ( Amer) 84, Glucose 214 H, Calcium 9.0, Total Bilirubin 0.7, AST 40 H, ALT 35, Alkaline Phosphatase 60, Total Protein 6.5, Albumin 3.4 L, Globulin 3.1, Albumin/Globulin Ratio 1.1 11/07/21 11:28: TSH 8.39 H, Free T4 Index 2.5 L, Thyroxine (T4) 7.7, T3 Uptake 33 Result diagrams: 11/07/21 11:28 11/07/21 11:28 Orders (Tests/Meds): ED MEDICATIONS Generic Name Dose Route Start Last Admin Trade Name Freq PRN Reason Stop Dose Admin Sodium Chloride 10 ml 11/07/21 11:28 Sodium Chloride 0.9% 10ml Flush Syringe IV 12/07/21 11:27 NEEDED PRN Maintain IV Site Discontinued Medications Generic Name Dose Route Start Last Admin Trade Name Freq PRN Reason Stop Dose Admin Sodium Chloride 1,000 mls @ 999 mls/hr 11/07/21 12:15 11/07/21 12:11 Sod Chlor 0.9% 1000ml Bag IV 11/07/21 13:15 999 mls/hr .[id number] NIKITA Administration Potassium Chloride 20 meq 11/07/21 13:28 11/07/21 13:33 Potassium Chloride 20meq Tab PO 11/07/21 13:29 20 meq ONCE ONE Administration Medical Decision Narrative: The patient's work-up in the emergency department revealed that the patient was urinary tract infection has cleared up. Given the patient's generalized symptoms blood work was obtain
--- NOTE | 2021-11-07 11:22 | PC.NURSE ---
pt given warm blanket
[2021-11-07 11:30] VITALS: BP 109/59; PULSE 55; RESP 18; O2SAT 95
[2021-11-07 11:32] LABS: Microscopic, Urine URINE MICROSCOPIC (MICROSCOPIC)
[2021-11-07 11:37] LABS: Basophils # 0.2 K/mm3 (0-0.2); Basophils % 1.5 % (0.1-2.0); Eosinophils # 0.7 K/mm3 (0.0-0.4); Eosinophils % 7.2 % (0.1-12.0); Hematocrit 34.8 % (37.0-47.0); Hemoglobin 10.8 g/dL (12.2-16.2); Lymphocytes # 1.1 K/mm3 (0.7-4.5); Lymphocytes % 10.7 % (10-50); Mean Corpuscular HGB Conc 31.1 g/dL (31.8-35.4); Mean Corpuscular Hemoglobin 20.5 pg (27.0-31.2); Mean Corpuscular Volume 65.9 fl (81-99); Mean Platelet Volume 8.9 fl (7.4-10.4); Monocytes # 0.4 K/mm3 (0.1-1.0); Monocytes % 4.1 % (1.7-9.3); Neutrophils # 7.8 K/mm3 (1.8-7.8); Neutrophils % 76.5 % (37.0-80.0); Platelet Count 272 K/mm3 (142-424); Red Blood Count 5.28 M/mm3 (4.20-5.40); White Blood Count 10.2 K/mm3 (4.8-10.8)
[2021-11-07 11:45] LABS: Appearance,Urine CLEAR (Clear); Bilirubin,Urine Negative (Negative); Blood, Urine Negative (Negative); Color,Urine YELLOW (Yellow); Glucose,Urine (UA) Negative (Negative); Ketones,Urine Negative (Negative); Leukocyte Esterase,Urine TRACE (Negative); Nitrate,Urine Negative (Negative); PH,Urine 6.5 (5.0-8.5); Protein,Urine Negative (Negative)
--- NOTE | 2021-11-07 11:53 | PC.NURSE ---
checked on pt at this time, pt states no needs, notified pt some of her lab work is starting to result at this time. pt has family at [place], will continue to monitor
[2021-11-07 12:07] VITALS: BP 101/55; PULSE 54; RESP 18; O2SAT 93
[2021-11-07 12:11] LABS: Alanine Aminotransferase 35 U/L (12-78); Albumin Level 3.4 g/dl (3.5-5.0); Albumin/Globulin Ratio 1.1 (1.1-1.8); Alkaline Phosphatase 60 U/L (38-126); Anion Gap 10.1 mEq/L (5-15); Aspartate Amino Transferase 40 U/L (14-36); Bilirubin,Total 0.7 mg/dl (0.2-1.3); Blood Urea Nitrogen 16 mg/dl (7-17); Carbon Dioxide 30 mmol/L (22.0-30.0); Chloride 97 mmol/L (98-107); Creatinine Clearance Estimated 53 mL/min (50-200); Estimated Glomerular Filt Rate 69 ml/min (>60); GFR (African American) 84 ML/MIN (>60); Globulin 3.1 g/dL (1.3-3.2); Glucose 214 mg/dl (74-100); Potassium 3.1 mmoL/L (3.5-5.1); Sodium 134 mmol/L (136-145); Total Protein,Serum 6.5 g/dl (6.3-8.2)
[2021-11-07 12:13] LABS: Bacteria,Urine Trace /lpf; Squamous Epithelial Cell,Urine Occasional #/hpf (0-5)
[2021-11-07 12:24] LABS: Free Thyroxine Index 2.5 ug/dL (5.93-13.13); T4 (Thyroxine) 7.7 ug/dl (5.53-11.0); Triiodothryronine (T3) Uptake 33 % (23.5-40.5)
[2021-11-07 12:38] LABS: Thyroid Stimulating Hormone 8.39 uIU/mL (0.465-4.68)
[2021-11-07 13:00] VITALS: BP 109/53; PULSE 51; RESP 18; O2SAT 98
--- NOTE | 2021-11-07 13:29 | PC.NURSE ---
rounded on pt at this time, pt states no needs
[2021-11-07 13:30] VITALS: BP 99/53; PULSE 51; O2SAT 97
--- NOTE | 2021-11-07 13:36 | PC.NURSE ---
pt and family updated on plan of care
--- NOTE | 2021-11-07 13:49 | PC.NURSE ---
JOSHUA REHMAN at explaining POC
[2021-11-07 14:09] VITALS: BP 107/68; PULSE 78; RESP 16; TEMP 36.6; O2SAT 98
== END 2021-11-07 14:11 | disposition home or self-care (01) ==
PROVIDERS: Emergency Provider Emergency Medicine; PCP Family Medicine
DX: R53.1 Weakness (principal); E87.6 Hypokalemia; E03.9 Hypothyroidism, unspecified; I10 Essential (primary) hypertension; F41.9 Anxiety disorder, unspecified
CPT/HCPCS: 80053; 81001; 84436; 84443; 84479; 85025; 96365; 99284

== ENCOUNTER 2022-11-14 17:54 | Observation (INO) | payer MEDICARE, SELFPAY ==
[2022-11-14] VITALS (8 sets, daily range): BP systolic 94–138; BP diastolic 43–68; PULSE 69–77; RESP 16–20; TEMP 36.8–37.8; O2SAT 94–96; BMI 27.4; BMI 30.5
[2022-11-14 18:08] LABS: Microscopic, Urine URINE MICROSCOPIC (MICROSCOPIC)
[2022-11-14 18:09] LABS: Appearance,Urine CLEAR (Clear); Bilirubin,Urine Negative (Negative); Blood, Urine Negative (Negative); Color,Urine YELLOW (Yellow); Glucose,Urine (UA) Negative (Negative); Ketones,Urine Negative (Negative); Leukocyte Esterase,Urine 1+ (Negative); Nitrate,Urine Negative (Negative); Protein,Urine Negative (Negative)
--- NOTE | 2022-11-14 18:20 | XR_ITS ---
PROCEDURE INFORMATION: Exam: XR Chest Exam date and time: 11/14/2022 6:25 PM Age: 81 years old Clinical indication: Dyspnea TECHNIQUE: Imaging protocol: Radiologic exam of the chest. Views: 1 view. COMPARISON: CT ABDOMEN PELVIS W CON 10/16/2020 6:32 PM FINDINGS: Lungs: Unremarkable. No consolidation. Pleural spaces: Unremarkable. No pleural effusion. No pneumothorax. Heart/Mediastinum: Mild cardiomegaly. Bones/joints: Unremarkable. IMPRESSION: No acute findings.
--- NOTE | 2022-11-14 18:21 | HMH.EDGENADL ---
Discharge Plan Disposition Chief Complaint: Urogenital-Female Prescriptions Prescriptions: No Action levothyroxine 100 mcg capsule 150 mcg PO DAILY atenolol-chlorthalidone 50-25 mg tablet 1 tab PO DAILY mecobalamin (vitamin B12) 1,000 mcg tablet,disintegrating 1,000 mcg SL DAILY aspirin 81 MG tablet,chewable 81 mg PO DAILY escitalopram oxalate 5 MG tablet 10 mg PO DAILY nitrofurantoin monohyd/m-cryst 100 mg capsule 100 mg PO BID Patient Comments: TAKE 1 CAPSULE BY MOUTH EVERY 12 HOURS WITH FOOD FOR 7 DAYS allopurinol 100 mg tablet 100 mg PO DAILY Patient Comments: TAKE 1 TABLET BY MOUTH ONCE DAILY DIRECTED Referrals Follow up/Referrals: Willie Durant MD [Primary Care Provider] - See instructions Clinical Impressions Clinical Impression: Pyelonephritis Instructions Patient Instructions: DI for Urinary Tract Infection (UTI), DI for Urinary Tract Infection in Children Discharge ED Provider: Reyna Velásquez General Adult HPI General Chief complaint: Urogenital-Female Stated complaint: poss UTI Time Seen by Provider: 11/14/22 18:10 Mode of Arrival: Wheelchair Source of Information: Patient Limitations: No Limitations Description of Symptoms (Recalled from ER Triage Doc. by RN): Pt reports urgency with urination, states frequently not able to make it to the restroom before incontinent of urine r/t urgency. Pt reports a lot of pressure when needing to urinate. Pt states was seen in pcp office yesterday, diagnosed with UTI started on antibiotics. Pt reports feels worse today. Denies n/v/d History of Present Illness HPI narrative: Patient is an 81-year-old female presenting with feeling terrible. Patient states that she has been feeling bad over the last 24 hours and that she has had some significant urinary urgency and went to Dr. Durant yesterday was diagnosed with urinary tract infection. We called Rea as the patient could not recall exactly what antibiotic she was on and she has been prescribed nitrofurantoin. She states however that she last night was having some significant shaking chills and body aches. She denies any other respiratory symptoms throat pain or infectious symptoms elsewhere in her body. No significant abdominal pain or flank pain. Related Data Home Medications Medication Instructions Recorded Confirmed atenolol 50 mg-chlorthalidone 25 1 tab PO DAILY Hypertension 06/27/18 11/14/22 mg tablet levothyroxine 100 mcg capsule 150 mcg PO DAILY Hypothyroid 06/27/18 11/14/22 mecobalamin (vitamin B12) 1,000 1,000 mcg SL DAILY Supplement 06/27/18 10/17/20 mcg disintegrating tablet,sublingual aspirin 81 mg chewable tablet 81 mg PO DAILY HEART HEALTH 10/16/20 11/14/22 escitalopram oxalate 5 mg tablet 10 mg PO DAILY MOOD 10/17/20 11/14/22 allopurinol 100 mg tablet 100 mg PO DAILY uric acid 11/14/22 11/14/22 nitrofurantoin 100 mg PO BID uti 11/14/22 11/14/22 monohydrate/macrocrystals 100 mg capsule Allergies Allergy/AdvReac Type Severity Reaction Status Date / Time egg yolk Allergy Severe rash Verified 10/16/20 21:17 Milk Containing Products Allergy Severe rash Verified 10/16/20 21:17 (Dairy) [Milk Containing Products] [facility] Disclaimer: The information contained in this section may have been updated after the patient was seen, as this information can be updated by other users. Social History Smoking Status: Never smoker alcohol intake: never current occupational status: retired Travel in the last 8 weeks: None caffeine: Yes ROS Obtained: Yes All systems reviewed & no additional complaints except as documented Physical Exam General General appearance: other (Temp 100.1 on my exam she feels warm to my touch though) Respiratory Respiratory exam: Present normal lung sounds bilaterally; Absent respiratory distress, wheezes or stridor Cardiovascular Cardiovascular exam: Pre
[2022-11-14 18:35] LABS: Bacteria,Urine 1+ /lpf
[2022-11-14 18:47] LABS: Chloride 97 mmol/L (98-107); Potassium 3.1 mmoL/L (3.5-5.1); Sodium 135 mmol/L (136-145)
[2022-11-14 18:49] LABS: Blood Urea Nitrogen 18 mg/dl (7-17); Creatinine Clearance Estimated 49 mL/min (50-200); Estimated Glomerular Filt Rate 69 ml/min (>60); GFR (African American) 83 ML/MIN (>60)
[2022-11-14 18:50] LABS: Alanine Aminotransferase 37 U/L (12-78); Albumin Level 3.8 g/dl (3.5-5.0); Albumin/Globulin Ratio 1.2 (1.1-1.8); Alkaline Phosphatase 48 U/L (38-126); Anion Gap 13.1 mEq/L (5-15); Aspartate Amino Transferase 59 U/L (14-36); Bilirubin,Total 1.5 mg/dl (0.2-1.3); Calcium 8.4 mg/dl (8.4-10.2); Carbon Dioxide 28 mmol/L (22.0-30.0); Globulin 3.2 g/dL (1.3-3.2); Glucose 109 mg/dl (74-100)
[2022-11-14 18:53] LABS: Lactic Acid 2.2 mmol/L (0.7-2.1)
[2022-11-14 18:59] LABS: Basophils % 0.2 % (0.1-2.0); Eosinophils # 0.1 K/mm3 (0.0-0.4); Eosinophils % 1.6 % (0.1-12.0); Hematocrit 34.2 % (37.0-47.0); Hemoglobin 10.6 g/dL (12.2-16.2); Lymphocytes # 0.6 K/mm3 (0.7-4.5); Lymphocytes % 7.3 % (10-50); Mean Corpuscular HGB Conc 30.9 g/dL (31.8-35.4); Mean Corpuscular Hemoglobin 20.2 pg (27.0-31.2); Mean Corpuscular Volume 65.2 fl (81-99); Mean Platelet Volume 7.8 fl (7.4-10.4); Monocytes # 0.3 K/mm3 (0.1-1.0); Monocytes % 3.7 % (1.7-9.3); Neutrophils # 6.6 K/mm3 (1.8-7.8); Neutrophils % 87.1 % (37.0-80.0); Platelet Count 149 K/mm3 (142-424); Red Blood Count 5.25 M/mm3 (4.20-5.40); Red Cell Distribution Width 15.9 % (11.5-17.5); White Blood Count 7.6 K/mm3 (4.8-10.8)
--- NOTE | 2022-11-14 19:00 | PC.NURSE ---
covid swab sent to lab [facility] in [facility]
[2022-11-14 19:14] LABS: MANUAL DIFFERENTIAL MANUAL DIFFERENTIAL (MANUAL DIFF)
[2022-11-14 19:20] LABS: Coronavirus 19, PCR Not Detected (NotDetected); Influenza A, PCR Not Detected (NotDetected); Influenza B, PCR Not Detected (NotDetected)
--- NOTE | 2022-11-14 19:25 | PC.NURSE ---
shift change report given to reymundorn
--- NOTE | 2022-11-14 19:28 | PC.NURSE ---
Dr. Peres being paged for ED doctor
--- NOTE | 2022-11-14 19:30 | PC.NURSE ---
Dr. Velásquez s/w Dr. Peres for admission, agrees to admit
--- NOTE | 2022-11-14 19:34 | PC.NURSE ---
[facility] supervisor notified for bed assignment, Larisa Durant: Urosepsis and Pylonephritis
--- NOTE | 2022-11-14 19:39 | PC.NURSE ---
Registration notified of admission. Pt assigned to room 209 for Urosepsis. Larisa Durant. OBS
--- NOTE | 2022-11-14 19:45 | PC.NURSE ---
Rounded on patient, no concerns voiced at this time.
--- NOTE | 2022-11-14 20:15 | PC.NURSE ---
attempted to call report, nurse unavailable will call back in 10 min.
[2022-11-14 20:24] LABS: Eosinophils % 3 % (0-3); Hypochromasia 1+; Lymphocytes % 5 % (10-50); Microcytosis 1+; Monocytes % 6 % (2-9); Neutrophils % 86 % (42-76); Platelet Estimate Normal; Total Cells Counted 100
--- NOTE | 2022-11-14 20:37 | PC.NURSE ---
Gave report to Maria Eugenia [facility]
--- NOTE | 2022-11-14 21:02 | PC.NURSE ---
Pt. arrived to floor by wheelchair at 21:00.
[2022-11-14 22:38] LABS: Reflex Lactic Add Lactic Reflex
[2022-11-14 23:27] LABS: Lactic Acid Follow Up (RFLX 1) 2.1 mmol/L (0.7-2.1)
[2022-11-15] VITALS: BP 117/47; PULSE 66; RESP 16; TEMP 36.8; O2SAT 97
[2022-11-15 01:15] LABS: Reflex Lactic (2 hrs) Add Lactic Reflex
[2022-11-15 01:45] LABS: Lactic Acid Follow up (RFLX 2) 1.7 mmol/L (0.7-2.1)
[2022-11-15 04:00] VITALS: BP 143/49; PULSE 73; RESP 16; TEMP 37.7; O2SAT 95; BMI 30.4
--- NOTE | 2022-11-15 06:59 | PC.NURSE ---
pt had a kasie, up to chair for breakfast. no c/o.
--- NOTE | 2022-11-15 07:25 | HMH.PHAINT1 ---
Pharmacy Intervention Comments: Patient's home medications reviewed and verified with the external medication resource. Patient was asked today but states she did not know her medications but her daughter had a written list that she brought in last night upon admission and showed the nurse. -Deon Mai, PharmD student
[2022-11-15 08:00] VITALS: BP 111/51; PULSE 82; RESP 16; TEMP 37.1; O2SAT 95
--- NOTE | 2022-11-15 08:50 | EXP.HP ---
History of Present Illness *Admission Date: 11/14/22 *Reason for visit:: UTI *History of present illness: Ms. Millard is an 81-year-old female who presented to the [facility] on 11/13/2022 with complaints of dysuria and pelvic pressure. Her UA revealed a urinary tract infection and she was started on Macrobid. She states she continued to feel worse even with the Macrobid and developed fever, body aches, and chills. She presented to the emergency room and was felt to have a pyelonephritis. She was started on Rocephin and IV fluids and admitted. This a.m. she is feeling better. She continues to have some pain in her right lower quadrant. She is able to eat and drink. [facility] Disclaimer: The information contained in this section may have been updated after the patient was seen, as this information can be updated by other users. Medical History (Updated 11/15/22 @ 09:23 by Willie Durant MD) HTN (hypertension) Hypothyroidism (acquired) MDS (myelodysplastic syndrome) Vitamin D deficiency Surgical History (Updated 11/15/22 @ 08:57 by JEFF Moreno) History of cholecystectomy History of colonoscopy History of D&C Family History (Updated 11/15/22 @ 08:58 by JEFF Moreno) COPD (chronic obstructive pulmonary disease) Cancer Asthma Social History Smoking Status: Never smoker alcohol intake: never current occupational status: retired Travel in the last 8 weeks: None caffeine: Yes Review of Systems Constitutional Constitutional: Reports body ache(s), Reports chills, Reports fatigue, Reports fever(s), Denies headache(s) and Reports weakness Eyes Eyes: Denies blurry vision and Denies diplopia ENT Ears, Nose, Mouth, and Throat: Denies headache(s), Denies nasal congestion, Denies sore throat and Denies vertigo *Cardiovascular Cardiovascular: Denies chest pain, Denies dyspnea and Denies leg edema *Respiratory Respiratory: Denies cough and Denies dyspnea *Gastrointestinal Gastrointestinal: Reports abdominal pain (RLQ), Denies loose stools, Denies nausea and Denies vomiting *Genitourinary Genitourinary: Reports dysuria and Reports pelvic pain *Musculoskeletal Musculoskeletal: Denies arthralgias and Denies myalgias *Neurologic Neurologic: Denies headache(s), Denies vertigo and Reports weakness Endocrine Endocrine: Reports fatigue Meds Home Medications and Allergies Home Medications Medication Instructions Recorded Confirmed Type atenolol 50 mg-chlorthalidone 25 1 tab PO DAILY Hypertension 06/27/18 11/14/22 History mg tablet mecobalamin (vitamin B12) 1,000 1,000 mcg SL DAILY Supplement 06/27/18 11/14/22 History mcg disintegrating tablet,sublingual aspirin 81 mg chewable tablet 81 mg PO DAILY HEART HEALTH 10/16/20 11/14/22 History escitalopram oxalate 5 mg tablet 10 mg PO DAILY MOOD 10/17/20 11/14/22 History allopurinol 100 mg tablet 100 mg PO DAILY uric acid 11/14/22 11/14/22 History nitrofurantoin 100 mg PO BID uti 11/14/22 11/14/22 History monohydrate/macrocrystals 100 mg capsule levothyroxine 150 mcg tablet 150 mcg PO DAILY thyroid 11/15/22 11/15/22 History New Prescriptions to Start Prescriptions: Allergies Allergy/AdvReac Type Severity Reaction Status Date / Time egg yolk Allergy Severe rash Verified 10/16/20 21:17 Milk Containing Products Allergy Severe rash Verified 10/16/20 21:17 (Dairy) [Milk Containing Products] Exam Data for Last 24 hours Vital signs and Labs for Last 24 Hours: Temp Pulse Resp BP Pulse Ox O2 Del Method 98.8 F 82 16 111/51 L 95 Room Air 11/15/22 08:00 11/15/22 08:00 11/15/22 08:00 11/15/22 08:00 11/15/22 08:00 11/15/22 08:00 Laboratory Results - last 24 hr 11/14/22 18:05: Urine Color Yellow, Urine Appearance Clear, Urine pH 6.0, Ur Specific [place] 1.010, Urine Protein Negative, Urine Glucose (UA) Negative, Urine Ketones Negative, Urin
[2022-11-15 11:13] VITALS: BP 116/50; PULSE 59; RESP 16; TEMP 37.2; O2SAT 97
[2022-11-15 15:24] VITALS: BP 119/63; PULSE 65; RESP 18; TEMP 37.2; O2SAT 96
[2022-11-15 18:06] LABS: Adenovirus F 40/41, stool Not Detected (NotDetected); Astrovirus Not Detected (NotDetected); Campylobacter Not Detected (NotDetected); Clostridium Difficile A/B, PCR Not Detected (NotDetected); Cryptosporidium Not Detected (NotDetected); Cyclospora Cayetanesis Not Detected (NotDetected); Entamoeba histolytica Not Detected (NotDetected); Enteroaggregative E coli Not Detected (NotDetected); Enteropathogenic E coli Not Detected (NotDetected); Enterotoxigenic E coli Not Detected (NotDetected); Giardia lamblia Not Detected (NotDetected); Norovirus Not Detected (NotDetected); Plesimonas Shigalloides, PCR Not Detected (NotDetected); Rotavirus A Not Detected (NotDetected); Salmonella, PCR Not Detected (NotDetected); Sapovirus Not Detected (NotDetected); Shiga-like toxin E coli Not Detected (NotDetected); Shigella Enterovasive E coli Not Detected (NotDetected); Vibrio Cholerae Not Detected (NotDetected); Vibrio, PCR Not Detected (NotDetected); Yersinia Entercolitica, PCR Not Detected (NotDetected)
[2022-11-15 20:00] VITALS: BP 131/54; PULSE 64; RESP 20; TEMP 37.2; O2SAT 95
[2022-11-16] VITALS: BP 137/56; PULSE 58; RESP 20; TEMP 36.8; O2SAT 93
[2022-11-16 04:00] VITALS: BP 92/52; PULSE 71; RESP 16; TEMP 36.3; O2SAT 95; BMI 30.4
--- NOTE | 2022-11-16 06:25 | PC.NURSE ---
pt has rested well tonight. no c/o diarrhea t/o the night. call light within reach.
[2022-11-16 07:21] LABS: Anion Gap 9.9 mEq/L (5-15); Blood Urea Nitrogen 12 mg/dl (7-17); Carbon Dioxide 26 mmol/L (22.0-30.0); Chloride 108 mmol/L (98-107); Creatinine Clearance Estimated 54 mL/min (50-200); Estimated Glomerular Filt Rate 96 ml/min (>60); GFR (African American) 116 ML/MIN (>60); Glucose 118 mg/dl (74-100); Potassium 3.9 mmoL/L (3.5-5.1); Sodium 140 mmol/L (136-145)
[2022-11-16 07:22] LABS: Calcium 8.3 mg/dl (8.4-10.2)
[2022-11-16 07:56] LABS: Hematocrit 30.7 % (37.0-47.0); Hemoglobin 9.4 g/dL (12.2-16.2); Mean Corpuscular Hemoglobin 20.1 pg (27.0-31.2); Mean Corpuscular Volume 65.5 fl (81-99); Red Blood Count 4.68 M/mm3 (4.20-5.40); White Blood Count 4.6 K/mm3 (4.8-10.8)
[2022-11-16 07:57] LABS: Basophils % 0.5 % (0.1-2.0); Eosinophils % 7.6 % (0.1-12.0); Lymphocytes # 1.2 K/mm3 (0.7-4.5); Lymphocytes % 25.4 % (10-50); Mean Corpuscular HGB Conc 30.7 g/dL (31.8-35.4); Mean Platelet Volume 9.6 fl (7.4-10.4); Neutrophils # 2.6 K/mm3 (1.8-7.8); Neutrophils % 57.6 % (37.0-80.0); Platelet Count 145 K/mm3 (142-424); Red Cell Distribution Width 15.7 % (11.5-17.5)
[2022-11-16 07:58] LABS: Eosinophils # 0.4 K/mm3 (0.0-0.4); Monocytes # 0.4 K/mm3 (0.1-1.0)
[2022-11-16 08:00] VITALS: BP 139/60; PULSE 67; RESP 18; TEMP 36.3; O2SAT 94; O2SAT 98
--- NOTE | 2022-11-16 08:17 | EXP.ACUTE.PN ---
Subjective *Date: 11/16/22 *Time: 08:52 Interval history: Patient feeling much better today. Denies any abdominal pain. Has had some diarrhea. No fever. Medical Exam Vital signs and Labs for Last 24 Hours: Vital Signs Temp Pulse Resp BP Pulse Ox O2 Del Method 11/16/22 06:25 Room Air 11/16/22 04:00 97.4 F L 71 16 92/52 L 95 Room Air 11/16/22 04:42 Room Air 11/16/22 03:00 Room Air 11/16/22 01:00 Room Air 11/16/22 00:00 98.2 F 58 L 20 137/56 L 93 L Room Air 11/15/22 20:00 Room Air 11/15/22 22:17 Room Air 11/15/22 21:00 Room Air 11/15/22 20:00 99.0 F 64 20 131/54 L 95 Room Air 11/15/22 19:00 Room Air 11/15/22 17:00 Room Air 11/15/22 15:24 98.9 F 65 18 119/63 96 Room Air 11/15/22 15:00 Room Air 11/15/22 12:50 Room Air 11/15/22 11:00 Room Air 11/15/22 11:13 99.0 F 59 L 16 116/50 L 97 Room Air 11/15/22 09:00 Room Air Intake and Output 11/15/22 11/16/22 11/16/22 19:59 03:59 11:59 Intake Total 600 / 1103 503 / 1103 Output Total 0 / 0 0 / 0 0 / 0 Balance 600 / 1103 503 / 1103 0 / 1103 Intake: Intake, Oral Amount 600 / 720 120 / 720 Intake, Other Amount 20 / 20 Intake, Total IV Amount 363 / 363 Ceftriaxone Sodium 1 gm In 0.9 50 / 50 % Sodium Chloride 50 ml @ 100 mls/hr IV Q24H NIKITA Rx#:[id number] D5W/0.45% NaCl w/40mEq KCl 1, 313 / 313 000 ml @ 75 mls/hr IV .[id number] NIKITA Rx#:[id number] Output: Output, Urine Amount 0 / 0 0 / 0 0 / 0 Other: Intake, Other Source Saline Solution Number of Unmeasured Voids 1 1 2 Number of Bowel Movements 3 2 Weight 172 lb 1.6 oz Patient Weight 07/13/23 11:59 Weight 172 lb 1.6 oz Laboratory Results - last 24 hr 11/15/22 18:00: Stl Aeromonas (PCR) Not detected, Stl C. cayetanensis PCR Not detected, Stool Rotavirus (PCR) Not detected, Stl Adenov F 40/41 PCR Not detected, Stool Astrovirus (PCR) Not detected, Stool Campylobacter PCR Not detected, Stl C.difficile Tox PCR Not detected, Stool Cryptosporidium PCR Not detected, Stl E.coli Shiga Tox PCR Not detected, Stool E coli O157 PCR Not detected, Stl Enterotoxigenic E PCR Not detected, Stool EPEC (PCR) Not detected, Stool EAEC (PCR) Not detected, Stl E. histolytica PCR Not detected, Stool Giardia Lamblia PCR Not detected, Stool Salmonella PCR Not detected, Stool Sapovirus (PCR) Not detected, Stl P. shigelloides PCR Not detected, Stl Shigella/EIEC PCR Not detected, St Y.enterocolitica PCR Not detected, Stool Vibrio (PCR) Not detected, Stl Vibrio cholerae PCR Not detected, Stl Norovirus GI/GII PCR Not detected 11/16/22 05:55: WBC 4.6 L D, RBC 4.68, Hgb 9.4 L, Hct 30.7 L, MCV 65.5 L, MCH 20.1 L, MCHC 30.7 L, RDW 15.7, Plt Count 145, MPV 9.6, Neut % (Auto) 57.6, Lymph % (Auto) 25.4, [place] % (Auto) 9.0, Eos % (Auto) 7.6, Baso % (Auto) 0.5, Neut # (Auto) 2.6, Lymph # (Auto) 1.2, [place] # (Auto) 0.4, Eos # (Auto) 0.4, Baso # (Auto) 0.0, Sodium 140, Potassium 3.9 D, Chloride 108 H, Carbon Dioxide 26, Anion Gap 9.9, BUN 12 D, Creatinine 0.60 D, Estimated Creat Clear 54, Estimated GFR 96, Est GFR ( Amer) 116 D, Glucose 118 H, Calcium 8.3 L I & O for Labs for Last 24 Hours: Intake & Output 11/13/22 11/14/22 11/15/22 11/16/22 11:59 11:59 11:59 11:59 Intake Total 1360 / 1360 1103 / 1103 Output Total 0 / 0 0 / 0 Balance 1360 / 1360 1103 / 1103 Weight 172 lb 2.896 oz 172 lb 1.6 oz Microbiology Reports for the Last 24 Hours: Microbiology 11/14/22 18:05 Urine,Clean Catch Urine Culture - Preliminary NO GROWTH AFTER 24 HOURS Constitutional: Present no acute distress Respiratory: Present CTA bilaterally Cardiac: Present Reg Rate and Rhythm GI: Present soft and normal bowel sounds; Absent distention or tenderness Extremities: Absent edema, clubbing or cyanosis Skin: Present intact Neuro: Present alert and awake Assessment and Joseph
--- NOTE | 2022-11-16 09:07 | PC.NURSE ---
COURTESY TECH NOTE; ROUNDED ON PT [id number], PT DENIED NEED FOR DRINK, ASSISTANCE WITH RESTROOM, AND NEED TO REPOSITION IN BED. CALL LIGHT WITHIN REACH, NO FURTHER REQUESTS AT THIS TIME MAURICIO FIELD
--- NOTE | 2022-11-16 09:18 | HMH.PHAINT1 ---
Pharmacy Intervention Comments: Patient discharge medications discussed: -Stop Nitrofuratonin - Start Cefuroxime (anitbiotic, take until completion, watch for upset stomach/diarrhea) Patient had no further questions. -Mark Spencer, Pharm Student
--- NOTE | 2022-11-16 11:31 | ECG_ITS ---
APPROVED REPORT Exam: Resting ECG HR:59 bpm ECG Measurements Heart Rate 59 AXES IA 181 P -18 QRSd 95 QRS 3 QT 377 T 7 QTc 377 Conclusion SINUS BRADYCARDIA MODERATE T-WAVE ABNORMALITY, CONSIDER ANTERIOR ISCHEMIA [-0.1+ mV T-WAVE IN V3/V4] ABNORMAL ECG UNCONFIRMED REPORT Electronically signed by : Frederick Peres MD 11/16/2022 21:34:04
[2022-11-16 12:00] VITALS: BP 142/67; PULSE 66; RESP 18; TEMP 36.4; O2SAT 97
--- NOTE | 2022-11-16 12:40 | PC.NURSE ---
tech note: Pt refused to get in chair for lunch. Asked twice. LUIS A, SRNA
--- NOTE | 2022-11-17 12:49 | CARE MANAGER ---
Contacted patient related to hospital discharge. She states she feels weak, but better. She picked up her new medication and is aware of her follow up appointment. Denies questions or concerns. ARTI Johnson
--- NOTE | 2022-11-24 08:52 | EXP.DC.SUM ---
General Admission date:: 11/14/22 Discharge date: 11/16/22 HPI HPI HPI: Ms. Millard is an 81-year-old female who presented to the [facility] on 11/13/[facility]22 with complaints of dysuria and pelvic pressure. Her UA revealed a urinary tract infection and she was started on Macrobid. She states she continued to feel worse even with the Macrobid and developed fever, body aches, and chills. She presented to the emergency room and was felt to have a pyelonephritis. She was started on Rocephin and IV fluids and admitted. This a.m. she is feeling better. She continues to have some pain in her right lower quadrant. She is able to eat and drink. Hospital Course Hospital Course Hospital Course: The patient's chest x-ray showed nothing acute. She was admitted and started on IV fluids and IV antibiotics. Some of her home medications were restarted and potassium was added to her IV fluids. By 11/16/2022 she was feeling much better and denied any abdominal pain. She had had some diarrhea but no fever. Her stool panel was negative. She did have an EKG which showed sinus bradycardia and a moderate T wave abnormality. She was given a dose of Rocephin on 11/16/2022 and was felt stable to discharge home on oral antibiotics. She will follow-up in the office. Her blood cultures returned showing no growth and her urine grew Klebsiella pneumoniae. Exam Data for Last 24 hours Vital signs and Labs for Last 24 Hours: Temp Pulse Resp BP Pulse Ox O2 Del Method 97.6 F 66 18 142/67 H 97 Room Air 11/16/22 12:00 11/16/22 12:00 11/16/22 12:00 11/16/22 12:00 11/16/22 12:11/16/22 12:00 Narrative: Constitutional Constitutional: no acute distress *Routine HEENT Exam Head: Present normocephalic and atraumatic Eye: Present EOMI and PERRL ENT: Present mucous membranes moist *Routine Neck Exam Neck: Present supple and full ROM *Routine Respiratory Exam Respiratory: Present CTA bilaterally *Routine Cardiovascular Exam Cardiovascular: Present irregular rhythm *Routine Abdominal Exam Abdominal: Present soft, normoactive bowel sounds and tenderness (RLQ) *Routine Rectal Exam Rectal:: deferred *Routine Genitalia Exam Genitalia:: deferred *Routine Extremities Exam Extremities: Absent cyanosis, clubbing or edema *Routine Skin Exam Skin: Present intact; Absent erythema *Routine Neurological Exam Neurological: Present alert and oriented X3 DS: Diagnosis Discharge Diagnosis (1) Pyelonephritis: Status: Acute Code(s): N12 - Tubulo-interstitial nephritis, not specified as acute or chronic (2) Acute UTI: Status: Acute Code(s): N39.0 - Urinary tract infection, site not specified (3) Hypokalemia: Status: Acute Code(s): E87.6 - Hypokalemia (4) Transaminitis: Status: Acute Code(s): R74.01 - Elevation of levels of liver transaminase levels (5) Hypothyroidism (acquired): Status: Acute Code(s): E03.9 - Hypothyroidism, unspecified (6) MDS (myelodysplastic syndrome): Status: Acute Code(s): D46.9 - Myelodysplastic syndrome, unspecified (7) HTN (hypertension): Status: Acute Code(s): I10 - Essential (primary) hypertension Qualifiers: Hypertension type: primary hypertension Qualified Code(s): I10 - Essential (primary) hypertension Meds Home Medications and Allergies Home Medications Medication Instructions Recorded Confirmed Type atenolol 50 mg-chlorthalidone 25 1 tab PO DAILY Hypertension 06/27/18 11/14/22 History mg tablet mecobalamin (vitamin B12) 1,000 1,000 mcg SL DAILY Supplement 06/27/18 11/14/22 History mcg disintegrating tablet,sublingual aspirin 81 mg chewable tablet 81 mg PO DAILY HEART HEALTH 10/16/20 11/14/22 History escitalopram oxalate 5 mg tablet 10 mg PO DAILY MOOD 10/17/20 11/14/22 History allopurinol 100 mg tablet 100 mg PO DAILY uric acid 11/14/22 11/14/22 History levothyroxine 150 mcg ta
== END 2022-11-16 13:27 | disposition home or self-care (01) ==
LOC: ER 18:47 → 2ND 19:43
PROVIDERS: Admitting Provider Internal Medicine Adolescent Medicine; Emergency Provider Student in an Organized Health Care Education/Training Program; PCP Family Medicine; Visit Provider Family Medicine
DX: N12 Tubulo-interstitial nephritis, not specified as acute or chronic (principal); N39.0 Urinary tract infection, site not specified; E87.6 Hypokalemia; R74.01 Elevation of levels of liver transaminase levels; E03.9 Hypothyroidism, unspecified; D46.9 Myelodysplastic syndrome, unspecified; I10 Essential (primary) hypertension; Z79.899 Other long term (current) drug therapy
CPT/HCPCS: G0378; 36415; 71045; 80048; 80053; 81001; 83605; 85007; 85025; 87040; 87086; 87088; 87186; 87506; 87636; 93005; 99285; J0696

== ENCOUNTER 2022-11-26 16:26 | Emergency (ER) | payer MEDICARE, SELFPAY ==
[2022-11-26] VITALS (13 sets, daily range): BP systolic 142–188; BP diastolic 64–81; PULSE 54–68; RESP 12–19; TEMP 36.4; O2SAT 95–100; BMI 30.6
--- NOTE | 2022-11-26 16:42 | ECG_ITS ---
APPROVED REPORT Exam: Resting ECG HR:55 bpm ECG Measurements Heart Rate 55 AXES MD 180 P 75 QRSd 105 QRS 37 QT 447 T 77 QTc 436 Conclusion SINUS BRADYCARDIA INCOMPLETE RIGHT BUNDLE BRANCH BLOCK [90+ ms QRS DURATION, TERMINAL R IN V1/V2, 40+ ms S IN I/aVL/V4/V5/V6] NONSPECIFIC T-WAVE ABNORMALITY BORDERLINE ECG UNCONFIRMED REPORT Electronically signed by : Frederick Peres MD 11/27/2022 17:59:44
--- NOTE | 2022-11-26 17:14 | XR_ITS ---
PROCEDURE INFORMATION: Exam: XR Chest Exam date and time: 11/26/2022 5:25 PM Age: 81 years old Clinical indication: Pain; Chest pressure; Additional info: Chest pain TECHNIQUE: Imaging protocol: Radiologic exam of the chest. Views: 1 view. COMPARISON: CR XR CHEST PORTABLE 11/14/2022 6:25 PM FINDINGS: Lungs: Unremarkable. No consolidation. Pleural spaces: Unremarkable. No pleural effusion. No pneumothorax. Heart/Mediastinum: Unremarkable. No cardiomegaly. Bones/joints: Unremarkable. IMPRESSION: No acute findings.
[2022-11-26 17:28] LABS: Basophils # 0.1 K/mm3 (0-0.2); Eosinophils # 0.2 K/mm3 (0.0-0.4); Eosinophils % 2.6 % (0.1-12.0); Hematocrit 33.4 % (37.0-47.0); Hemoglobin 10.6 g/dL (12.2-16.2); Lymphocytes # 2.2 K/mm3 (0.7-4.5); Lymphocytes % 34.4 % (10-50); Mean Corpuscular HGB Conc 31.7 g/dL (31.8-35.4); Mean Corpuscular Hemoglobin 20.6 pg (27.0-31.2); Mean Corpuscular Volume 65.1 fl (81-99); Monocytes # 0.6 K/mm3 (0.1-1.0); Monocytes % 8.9 % (1.7-9.3); Neutrophils # 3.4 K/mm3 (1.8-7.8); Neutrophils % 53.1 % (37.0-80.0); Platelet Count 237 K/mm3 (142-424); Red Blood Count 5.13 M/mm3 (4.20-5.40); Red Cell Distribution Width 15.8 % (11.5-17.5); White Blood Count 6.3 K/mm3 (4.8-10.8)
[2022-11-26 17:33] LABS: Alanine Aminotransferase 22 U/L (12-78); Albumin Level 3.9 g/dl (3.5-5.0); Albumin/Globulin Ratio 1.2 (1.1-1.8); Alkaline Phosphatase 60 U/L (38-126); Anion Gap 10.6 mEq/L (5-15); Aspartate Amino Transferase 47 U/L (14-36); Bilirubin,Total 0.5 mg/dl (0.2-1.3); Blood Urea Nitrogen 17 mg/dl (7-17); Carbon Dioxide 30 mmol/L (22.0-30.0); Chloride 101 mmol/L (98-107); Creatinine Clearance Estimated 51 mL/min (50-200); Estimated Glomerular Filt Rate 69 ml/min (>60); GFR (African American) 83 ML/MIN (>60); Globulin 3.3 g/dL (1.3-3.2); Glucose 129 mg/dl (74-100); Lipase 154 U/L (23-300); Potassium 3.6 mmoL/L (3.5-5.1); Sodium 138 mmol/L (136-145); Total Protein,Serum 7.2 g/dl (6.3-8.2)
--- NOTE | 2022-11-26 17:37 | PC.NURSE ---
xray at bs when rounding nothing needed
[2022-11-26 17:45] LABS: Troponin I < 0.01 ng/ml (0.00-0.034)
--- NOTE | 2022-11-26 19:50 | PC.NURSE ---
Second trop drawn
[2022-11-26 20:21] LABS: Troponin I < 0.01 ng/ml (0.00-0.034)
--- NOTE | 2022-11-27 01:14 | HMH.EDGENADL ---
Discharge Plan Disposition Patient Disposition: Home, Self-Care Condition: Good Prescriptions Prescriptions: No Action atenolol-chlorthalidone 50-25 mg tablet 1 tab PO DAILY mecobalamin (vitamin B12) 1,000 mcg tablet,disintegrating 1,000 mcg SL DAILY aspirin 81 MG tablet,chewable 81 mg PO DAILY escitalopram oxalate 5 MG tablet 10 mg PO DAILY allopurinol 100 mg tablet 100 mg PO DAILY Patient Comments: TAKE 1 TABLET BY MOUTH ONCE DAILY DIRECTED levothyroxine 150 mcg tablet 150 mcg PO DAILY Patient Comments: TAKE 1 TABLET BY MOUTH ONCE DAILY cefuroxime axetil 500 mg tablet 500 mg PO Q12H Qty: 14 0RF Referrals Follow up/Referrals: Willie Durant MD [Primary Care Provider] - See instructions Activity Restrictions/Add. Instructions Additional Instructions/Restrictions: Please follow-up with your primary care provider. Please return to the emergency department if you develop any new or worsening symptoms or become concerned for your health. Clinical Impressions Clinical Impression: Chest pain, Weakness Instructions Patient Instructions: DI for Acute Abdominal Pain Discharge ED Provider: Frantz Lyon Adult HPI General Chief complaint: Abdominal Pain Stated complaint: dizzy Time Seen by Provider: 11/26/22 16:40 Mode of Arrival: EMS Source of Information: Patient and EMS Limitations: No Limitations Description of Symptoms (Recalled from ER Triage Doc. by RN): 81 yo F presents to ED via EMS. per EMS report pt was eating at a fmaily function. pt reports that she began to have abdominal pain after eating. pt reports that she also began to have associated dizziness. pt was recently discharged from the hosptial for a UTI. History of Present Illness HPI narrative: 81-year-old female presents after spell. She reports that she was at a baby shower and had a small amount of champagne, she ate a fairly large amount of food and had sudden onset of abdominal discomfort, chest pain, nausea, had to lay down, felt presyncopal. Symptoms essentially resolved prior to arrival. Nothing like this is happened before. Patient had recent admission for UTI, and has continued to be fatigued since then. She denies any urinary symptoms. Denies chest pain or vomiting currently. Related Data Home Medications Medication Instructions Recorded Confirmed atenolol 50 mg-chlorthalidone 25 1 tab PO DAILY Hypertension 06/27/18 11/14/22 mg tablet mecobalamin (vitamin B12) 1,000 1,000 mcg SL DAILY Supplement 06/27/18 11/14/22 mcg disintegrating tablet,sublingual aspirin 81 mg chewable tablet 81 mg PO DAILY HEART HEALTH 10/16/20 11/14/22 escitalopram oxalate 5 mg tablet 10 mg PO DAILY MOOD 10/17/20 11/14/22 allopurinol 100 mg tablet 100 mg PO DAILY uric acid 11/14/22 11/14/22 levothyroxine 150 mcg tablet 150 mcg PO DAILY thyroid 11/15/22 11/15/22 Previous Rx's Medication Instructions Recorded cefuroxime axetil 500 mg tablet 500 mg PO Q12H #14 tabs 11/16/22 Allergies Allergy/AdvReac Type Severity Reaction Status Date / Time egg yolk Allergy Severe rash Verified 11/26/22 16:42 Milk Containing Products Allergy Severe rash Verified 11/26/22 16:42 (Dairy) [Milk Containing Products] [facility] Disclaimer: The information contained in this section may have been updated after the patient was seen, as this information can be updated by other users. Medical History (Updated 11/26/22 @ 22:04 by Frantz Lyon MD) HTN (hypertension) Hypothyroidism (acquired) MDS (myelodysplastic syndrome) Vitamin D deficiency Surgical History (Updated 11/15/22 @ 08:57 by JEFF Moreno) History of cholecystectomy History of colonoscopy History of D&C Family History (Updated 11/15/22 @ 08:58 by JEFF Moreno) Other Asthma COPD (chronic obstructive pulmonary disease) Cancer Social History (Reviewed 11/15/22 @ 08:58 by Neisha Valdez P
== END 2022-11-26 22:45 | disposition home or self-care (01) ==
PROVIDERS: Emergency Provider Emergency Medicine; PCP Family Medicine
DX: R07.9 Chest pain, unspecified (principal); R53.1 Weakness; R42 Dizziness and giddiness; I10 Essential (primary) hypertension; E03.9 Hypothyroidism, unspecified; D46.9 Myelodysplastic syndrome, unspecified
CPT/HCPCS: 71045; 80053; 83690; 84484; 85025; 93005; 96360; 99285

== ENCOUNTER 2022-12-03 15:12 | Emergency (ER) | payer MEDICARE, SELFPAY ==
[2022-12-03 15:14] VITALS: BP 136/95; PULSE 67; RESP 18; TEMP 36.4; O2SAT 97
--- NOTE | 2022-12-03 15:37 | HMH.EDGENADL ---
Discharge Plan Disposition Patient Disposition: Home, Self-Care Prescriptions Prescriptions: New epinephrine [EpiPen 2-Jose Juan] 0.3 mg/0.3 mL auto-injector 0.3 mg IM Q10M PRN (Reason: anaphylaxis) Qty: 2 0RF Rx Instructions: for 2 doses triamcinolone acetonide 0.5 % ointment 1 applic topical BID 14 Days Qty: 430 0RF No Action atenolol-chlorthalidone 50-25 mg tablet 1 tab PO DAILY mecobalamin (vitamin B12) 1,000 mcg tablet,disintegrating 1,000 mcg SL DAILY aspirin 81 MG tablet,chewable 81 mg PO DAILY escitalopram oxalate 5 MG tablet 10 mg PO DAILY allopurinol 100 mg tablet 100 mg PO DAILY Patient Comments: TAKE 1 TABLET BY MOUTH ONCE DAILY DIRECTED levothyroxine 150 mcg tablet 150 mcg PO DAILY Patient Comments: TAKE 1 TABLET BY MOUTH ONCE DAILY cefuroxime axetil 500 mg tablet 500 mg PO Q12H Qty: 14 0RF Referrals Follow up/Referrals: Willie Durant MD [Primary Care Provider] - See instructions Activity Restrictions/Add. Instructions Additional Instructions/Restrictions: I would like you to follow-up with an [employer] business intelligence consultant to get allergy testing. Additionally when she get [id number] cetirizine take 10 mg daily. You may also take 25 mg of alis-gyu-curozpo Benadryl at night as needed for symptoms and expect sedation. You been prescribed epinephrine pens to use only as needed please call 911 if you do in fact need to administer epinephrine. Additionally been given triamcinolone cream to apply to the affected areas until resolution. If you are not improving in 1 week I would advise that you follow-up with her squirrel worker Dr. Bansal here at [facility]. You may call the clinic and make an appointment at that time. Return with any shortness of breath tongue swelling or any other concerning symptoms Clinical Impressions Clinical Impression: Allergic reaction Discharge ED Provider: Reyna Velásquez General Adult HPI General Chief complaint: Allergic Reaction Stated complaint: possible reaction to medication Time Seen by Provider: 12/03/22 15:25 Mode of Arrival: Ambulatory Source of Information: Patient Limitations: No Limitations Description of Symptoms (Recalled from ER Triage Doc. by RN): pt presents to ED c/o rash to bilateral upper extremities, abdomen, and thighs that started yesterday. pt states she also has had swelling to her bottom lip. denies SOA or difficulty swallowing. pt re History of Present Illness HPI narrative: Patient is an 82-year-old female here with a diffuse erythematous and pruritic rash as well as some lip swelling. This began yesterday. She recently had a urinary tract infection which she was placed on antibiotics for and completed and then subsequently had worsening of her gout symptoms and started a new gout medication within the last 10 days she is unsure of the name of this. Since that time she has had some erythematous lesions over the last 24 hours that been relatively flat nonraised in nature and different locations coming and going as well as a little lip swelling. No mucosal swelling outside of this including any lip swelling or swelling in her posterior oropharynx or difficulty breathing. No wheezing no cardiovascular symptoms no gastrointestinal symptoms. No other allergen exposures that she is aware of. No other new medications new detergents. Related Data Home Medications Medication Instructions Recorded Confirmed atenolol 50 mg-chlorthalidone 25 1 tab PO DAILY Hypertension 06/27/18 11/14/22 mg tablet mecobalamin (vitamin B12) 1,000 1,000 mcg SL DAILY Supplement 06/27/18 11/14/22 mcg disintegrating tablet,sublingual aspirin 81 mg chewable tablet 81 mg PO DAILY HEART HEALTH 10/16/20 11/14/22 escitalopram oxalate 5 mg tablet 10 mg PO DAILY MOOD 10/17/20 11/14/22 allopurinol 100 mg tablet 100 mg PO DAILY uric acid 11/14/22 11/14/22 levothyroxine 150 mcg tablet 150 mcg PO DAILY thyroid 11/15
[2022-12-03 15:59] LABS: Basophils % 0.4 % (0.1-2.0); Eosinophils # 0.2 K/mm3 (0.0-0.4); Eosinophils % 2.4 % (0.1-12.0); Hematocrit 32.6 % (37.0-47.0); Hemoglobin 10.2 g/dL (12.2-16.2); Lymphocytes # 1.9 K/mm3 (0.7-4.5); Lymphocytes % 23.5 % (10-50); Mean Corpuscular HGB Conc 31.3 g/dL (31.8-35.4); Mean Corpuscular Hemoglobin 20.3 pg (27.0-31.2); Mean Platelet Volume 8.3 fl (7.4-10.4); Monocytes # 0.3 K/mm3 (0.1-1.0); Monocytes % 3.8 % (1.7-9.3); Neutrophils # 5.5 K/mm3 (1.8-7.8); Neutrophils % 69.8 % (37.0-80.0); Platelet Count 190 K/mm3 (142-424); Red Blood Count 5.02 M/mm3 (4.20-5.40); Red Cell Distribution Width 15.9 % (11.5-17.5); White Blood Count 7.9 K/mm3 (4.8-10.8)
[2022-12-03 16:01] VITALS: BP 118/64; PULSE 59; O2SAT 99
[2022-12-03 16:06] LABS: Chloride 99 mmol/L (98-107); Sodium 134 mmol/L (136-145)
[2022-12-03 16:07] LABS: Potassium 3.5 mmoL/L (3.5-5.1)
[2022-12-03 16:09] LABS: Alanine Aminotransferase 21 U/L (12-78); Albumin Level 3.8 g/dl (3.5-5.0); Albumin/Globulin Ratio 1.1 (1.1-1.8); Alkaline Phosphatase 62 U/L (38-126); Anion Gap 9.5 mEq/L (5-15); Aspartate Amino Transferase 33 U/L (14-36); Bilirubin,Total 0.8 mg/dl (0.2-1.3); Blood Urea Nitrogen 16 mg/dl (7-17); Carbon Dioxide 29 mmol/L (22.0-30.0); Creatinine Clearance Estimated 49 mL/min (50-200); Estimated Glomerular Filt Rate 80 ml/min (>60); GFR (African American) 97 ML/MIN (>60); Globulin 3.4 g/dL (1.3-3.2); Total Protein,Serum 7.2 g/dl (6.3-8.2)
[2022-12-03 16:10] LABS: Calcium 8.7 mg/dl (8.4-10.2); Glucose 91 mg/dl (74-100)
[2022-12-03 17:16] VITALS: BP 130/60; PULSE 61; RESP 18; O2SAT 97
[2022-12-03 17:28] VITALS: BP 133/58; PULSE 61; RESP 16; TEMP 36.4; O2SAT 97
== END 2022-12-03 17:32 | disposition home or self-care (01) ==
PROVIDERS: Emergency Provider Student in an Organized Health Care Education/Training Program; PCP Family Medicine
DX: R22.0 Localized swelling, mass and lump, head (principal); R21 Rash and other nonspecific skin eruption; T78.40XA Allergy, unspecified, initial encounter; D46.9 Myelodysplastic syndrome, unspecified; I10 Essential (primary) hypertension; E03.9 Hypothyroidism, unspecified
CPT/HCPCS: 80053; 85025; 96374; 96375; 99284

== ENCOUNTER → 2023-01-16 10:10 | Outpatient (CLI) | payer MEDICARE, SELFPAY ==
--- NOTE | 2023-01-16 10:14 | MM_ITS ---
PROCEDURE INFORMATION: Exam: MG Bilateral Screening 3D Mammography Exam date and time: 01/16/2023 10:14 AM Age: 82 years old Clinical indication: Screening examination; No personal or family history of breast cancer TECHNIQUE: Imaging protocol: Bilateral Screening tomosynthesis and 2D mammography including computer-aided detection (CAD) when performed. COMPARISON: 1. MG MM DIG SCREENING MAMM BI W/CAD 09/06/2021 10:25 AM 2. MG MM DIG SCREENING MAMM BI W/CAD 03/07/2019 1:07 PM FINDINGS: MAMMOGRAPHY: Breast composition: There are scattered areas of fibroglandular density. Mass: None. Architectural distortion: None. Calcifications: No suspicious calcifications. Asymmetric density: None. Skin thickening: None. Axillary adenopathy: None. IMPRESSION: No mammographic evidence of malignancy. Annual screening is recommended unless otherwise clinically indicated. ASSESSMENT: BI-RADS Category 1: Negative
== END ==
PROVIDERS: PCP Family Medicine; Visit Provider Family Medicine
DX: Z12.31 Encounter for screening mammogram for malignant neoplasm of breast (principal)
CPT/HCPCS: 77063; 77067

== ENCOUNTER 2023-07-15 03:37 | Observation (INO) | payer MEDICARE, SELFPAY ==
[2023-07-15] VITALS (23 sets, daily range): BP systolic 94–141; BP diastolic 49–97; PULSE 68–95; RESP 14–26; TEMP 36.6–37.2; O2SAT 91–98; BMI 30.6; BMI 31.1
--- NOTE | 2023-07-15 03:51 | XR_ITS ---
PROCEDURE INFORMATION: Exam: XR Chest Exam date and time: 07/15/2023 4:11 AM Age: 82 years old Clinical indication: Shortness of breath; Additional info: SOA TECHNIQUE: Imaging protocol: Radiologic exam of the chest. Views: 2 views. COMPARISON: CR XR CHEST PORTABLE 11/26/2022 5:25 PM FINDINGS: Tubes, catheters and devices: Leads overlying chest. Lungs: Minimal subsegmental atelectasis/scarring. No consolidation. Pleural spaces: No significant pleural effusion. No pneumothorax. Heart/Mediastinum: No cardiomegaly. Bones/joints: No displaced fracture. Soft tissues: Unremarkable. Intraperitoneal space: Surgical clips within RIGHT upper quadrant. IMPRESSION: No definite acute cardiopulmonary disease.
--- NOTE | 2023-07-15 03:54 | ECG_ITS ---
APPROVED REPORT Exam: Resting ECG HR:79 bpm ECG Measurements Heart Rate 79 AXES TN 172 P 60 QRSd 101 QRS 36 QT 383 T 50 QTc 418 Conclusion SINUS RHYTHM WITH FREQUENT VENTRICULAR PREMATURE COMPLEXES WITH OCCASIONAL SUPRAVENTRICULAR PREMATURE COMPLEXES INCOMPLETE RIGHT BUNDLE BRANCH BLOCK [90+ ms QRS DURATION, TERMINAL R IN V1/V2, 40+ ms S IN I/aVL/V4/V5/V6] NONSPECIFIC ST & T-WAVE ABNORMALITY Electronically signed by : CHATO TAYLOR, 07/17/2023 02:09:01
--- NOTE | 2023-07-15 04:00 | ED_ITS ---
Discharge Plan Disposition Patient Disposition: Admitted Condition: Fair Chief Complaint: Weakness Prescriptions Prescriptions: No Action atenolol-chlorthalidone 50-25 mg tablet 1 tab PO DAILY mecobalamin (vitamin B12) 1,000 mcg tablet,disintegrating 1,000 mcg SL DAILY aspirin 81 MG tablet,chewable 81 mg PO DAILY escitalopram oxalate 5 MG tablet 10 mg PO DAILY allopurinol 100 mg tablet 100 mg PO DAILY Patient Comments: TAKE 1 TABLET BY MOUTH ONCE DAILY DIRECTED levothyroxine 150 mcg tablet 150 mcg PO DAILY Patient Comments: TAKE 1 TABLET BY MOUTH ONCE DAILY cefuroxime axetil 500 mg tablet 500 mg PO Q12H Qty: 14 0RF epinephrine [EpiPen 2-Jose Juan] 0.3 mg/0.3 mL auto-injector 0.3 mg IM Q10M PRN (Reason: anaphylaxis) Qty: 2 0RF Rx Instructions: for 2 doses triamcinolone acetonide 0.5 % ointment 1 applic topical BID 14 Days Qty: 430 0RF Referrals Follow up/Referrals: Willie Durant MD [Primary Care Provider] - See instructions Clinical Impressions Clinical Impression: Acute UTI, Orthostatic lightheadedness Discharge ED Provider: Yenny Wolf General Adult HPI General Chief complaint: Weakness Stated complaint: Fall AO 0300, fever, Time Seen by Provider: 07/15/23 03:45 Mode of Arrival: Wheelchair Source of Information: Patient Limitations: No Limitations Description of Symptoms (Recalled from ER Triage Doc. by RN): Patient reports she was diagnosed with a kidney infection on or sunday of last week and started on antibiotics. Patient reports she was attempting to go to the restroom and became weak and slid down the wall into the floor and was unable to get up on her own. She was able to crawl to her nightstand with her phone and call for assistance. Patient states that she's been having some slight shortness of breath with exertion and some dysuria. Patient denies injury from the fall. History of Present Illness HPI narrative: 82-year-old female with previous medical history of UTIs presents with weakness with low energy fall. For the past 4 days patient has felt generally weak. Otherwise she also has had some mild shortness of breath on exertion and dysuria but no chest pain, cough, fever, or hematuria. No back pain aside from her chronic back pain. she saw her primary care provider for this weakness 3 days ago where she had blood work and urinalysis and was prescribed antibiotics for a UTI. She states her weakness has not improved. This morning she attempted to get up out of bed to go to the bathroom and felt generally weak so slowly let herself down to the floor. She denies any pain from the fall and did not hit her head. She did not lose consciousness. She did feel very weak and was unable to get up so called her family for assistance and EMS transported her to the emergency department. On arrival she complains of generalized weakness but no pain or concerns for injury from her fall. She has taken a few steps since the fall Without pain. She states she has had 1 episode of generalized weakness similar to this and on chart review at that time she was admitted to the hospital for Klebsiella pyelonephritis. Related Data Home Medications Medication Instructions Recorded Confirmed atenolol 50 mg-chlorthalidone 25 1 tab PO DAILY Hypertension 06/27/18 11/14/22 mg tablet mecobalamin (vitamin B12) 1,000 1,000 mcg SL DAILY Supplement 06/27/18 11/14/22 mcg disintegrating tablet,sublingual aspirin 81 mg chewable tablet 81 mg PO DAILY HEART HEALTH 10/16/20 11/14/22 escitalopram oxalate 5 mg tablet 10 mg PO DAILY MOOD 10/17/20 11/14/22 allopurinol 100 mg tablet 100 mg PO DAILY uric acid 11/14/22 11/14/22 levothyroxine 150 mcg tablet 150 mcg PO DAILY thyroid 11/15/22 11/15/22 Previous Rx's Medication Instructions Recorded cefuroxime axetil 500 mg tablet 500 mg PO Q12H #14 tabs 11/16/22 epinephrine 0.3 mg/0.3 mL 0.3 mg (0.3 mL) IM Q10M PRN 12/03/22 injection, auto-injector (EpiPen anaphylaxis #2 ea 2-Jose Juan) triamcinolone acetonide 0.5 % 1 applic topical BID 14 days #430 12/03/22 topical ointment grams Allergies Allergy/AdvReac Type Severity Reaction Status Date / Time egg yolk Allergy Severe rash Verified 11/26/22 16:42 Milk Containing Products Allergy Severe rash Verified 11/26/22 16:42 (Dairy) [Milk Containing Products] [facility] Disclaimer: The information contained in this section may have been updated after the patient was seen, as this information can be updated by other users. Medical History Vitamin D deficiency Hypothyroidism (acquired) MDS (myelodysplastic syndrome) HTN (hypertension) Surgical History History of D&C History of colonoscopy History of cholecystectomy Family History Other Asthma COPD (chronic obstructive pulmonary disease) Cancer Social History Smoking Status: Never smoker alcohol intake: never current occupational status: retired Travel in the last 8 weeks: None caffeine: Yes ROS Obtained: Yes All systems reviewed & no additional complaints except as documented Physical Exam General General appearance: alert, in no apparent distress and obese Comment: Slow to transfer from wheelchair to bed but is able to bear weight. Atraumatic. Head Head exam: atraumatic, normocephalic and normal inspection Eye Eye exam: Present normal appearance, PERRL and EOMI ENT ENT exam: Present normal exam, normal oropharynx, mucous membranes dry, TM's normal bilaterally and normal external ear exam Neck Neck exam: Present normal inspection, full ROM and trachea midline; Absent tenderness (No tenderness of C, T, L-spine), meningismus or lymphadenopathy Chest Chest inspection: Present normal inspection and symmetric chest wall rise; Absent tenderness Respiratory Respiratory exam: Present normal lung sounds bilaterally; Absent respiratory distress Cardiovascular Cardiovascular exam: Present regular rate, normal rhythm and irregular rhythm (PVCs and PACs on monitor); Absent bradycardia, tachycardia or JVD Abdominal Exam Abdominal exam: Present soft and normal bowel sounds; Absent distention, tenderness or guarding Extremities Exam Extremities exam: Present normal inspection, full ROM and normal capillary ref ill; Absent tenderness or calf tenderness Back Exam Back exam: Present normal inspection; Absent tenderness Neurological Exam Neurological exam: Present alert and oriented X3 Psychiatric Psychiatric exam: Present normal affect and normal mood Skin Skin exam: Present warm, dry, intact and normal color Lymphatic Lymphatic Findings: no adenopathy Medical Decision Making Medical Records Medical records reviewed: Yes I reviewed the patient's medical records. Chai Inquiry Pt receiving controlled substance: No Chai was queried for this patient: No Vital Signs: 07/15/23 03:39 Temperature 98.5 F Temperature Source Oral Pulse Rate [Left Radial] 68 Respiratory Rate 17 Blood Pressure [Right Arm] 126/60 Blood Pressure Mean [Right Arm] 82 Blood Pressure Source [Right Arm] Automatic Cuff Blood Pressure Position [Right Arm] Sitting 02 Sat by Pulse Oximetry 94 L Oxygen Delivery Method Room Air Orders (Tests/Meds): ED MEDICATIONS Generic Name Dose Route Start Last Admin Trade Name Freq PRN Reason Stop Dose Admin Lactated Ringer's 1,000 mls @ 999 mls/hr 07/15/23 03:51 Lactated Ringer's 1000 Ml Bag IV 07/15/23 04:51 .Q1H1M ONE ORDERS Category Date Time Status Chest XR 2 view (NOT portable) [XR chest 2V] Stat Exams 07/15/23 03:51 Ordered BNP [Brain Natriuretic Peptide] Stat Lab 07/15/23 03:52 Ordered CBC [Complete Blood Count Auto Diff] Stat Lab 07/15/23 03:52 Ordered CMP [Comprehensive Metabolic Panel] Stat Lab 07/15/23 03:52 Ordered Lactate Venous Stat Lab 07/15/23 03:52 Ordered Magnesium Stat Lab 07/15/23 04:13 Ordered Phosphorous Stat Lab 07/15/23 04:13 Ordered Rapid PCR Covid and Flu A/B Stat Lab 07/15/23 04:05 Received TSH [Thyroid Stimulating Hormone] Stat Lab 07/15/23 03:51 Ordered Trop I [Troponin I] Stat Lab 07/15/23 03:51 Ordered Troponin I Q3H Lab 07/15/23 07:00 Ordered Troponin I Q3H Lab 07/15/23 10:00 Ordered Urinalysis and Microscopic Stat Lab 07/15/23 03:52 Ordered ECG Data Tracing #1: I reviewed this ECG and interpreted as documented below: ECG initial impression date: 07/15/23 ECG initial impression time: 03:57 Arrhythmias present: PAC's and PVC's Conduction abnormalities present: RBBB (similar to previous EKGs) ECG compared to prior tracings: there are no significant changes Medical Decision Narrative: Considered multiple causes of patient's generalized weakness, dysuria, and low energy fall from standing including orthostatic hypotension, possibly from hypovolemia, sepsis (the patient has normal vitals at this time), UTI, pyelonephritis, autonomic neuropathy, deconditioning, hypoglycemia, anemia, medication effect, metabolic derangements, vasovagal syncope, cardiogenic syncope including arrhythmias, ACS. Much less likely CVA, TIA, aortic dissection, or PE as patient has no neurologic deficits, has had no reported neurologic symptoms aside from generalized weakness and no deficits on exam, and has had no chest pain throughout and normal vitals on exam. Patient also has no signs or symptoms of injuries as result of her fall and she describes a very low energy mechanism and that she let herself down slowly so CTs and x-rays are not indicated at this time. For this reason gave LR and obtained orthostatic vital signs, CBC, CMP, TSH, UA, chest x-ray, EKG. EKG was similar to prior with her right bundle branch block and PACs and PVCs. No STEMI or precursors to cardiac arrest. Labs independently reviewed and interpreted showed troponin is below detectable limit. Findings concerning for UTI on urinalysis. Her baseline anemia on CBC and new leukocytosis to 12.8. BNP elevated to over 4000 but fortunately chest x-ray independently reviewed and interpreted showed no significant pulmonary edema, pleural effusions, or other concerns.. Troponin below detectable limit. Discussed with patient that her presentation is concerning for UTI that may be resistant to the Macrobid she was prescribed earlier this week given her prior culture data. She is amenable to admission. Consulted family medicine with interactive discussion and they agreed to admit the patient. I ordered ceftria xone, continuous fluids, regular diet order, and patient remained hemodynamically stable and normotensive while awaiting admission. Critical Care Critical Care Time Critical Care Time: No
[2023-07-15 04:08] LABS: Coronavirus 19, PCR Not Detected (NotDetected); Influenza A, PCR Not Detected (NotDetected); Influenza B, PCR Not Detected (NotDetected)
--- NOTE | 2023-07-15 04:19 | PC.NURSE ---
Patient to RAD at this time
[2023-07-15 04:33] LABS: Basophils % 0.3 % (0.1-2.0); Eosinophils # 0.1 K/mm3 (0.0-0.4); Eosinophils % 1.1 % (0.1-12.0); Hematocrit 32.9 % (37.0-47.0); Hemoglobin 10.9 g/dL (12.2-16.2); Lymphocytes # 0.7 K/mm3 (0.7-4.5); Lymphocytes % 5.7 % (10-50); Mean Corpuscular HGB Conc 33.1 g/dL (31.8-35.4); Mean Corpuscular Hemoglobin 22.2 pg (27.0-31.2); Mean Corpuscular Volume 67.1 fl (81-99); Mean Platelet Volume 8.9 fl (7.4-10.4); Monocytes # 0.4 K/mm3 (0.1-1.0); Monocytes % 3.3 % (1.7-9.3); Neutrophils # 11.5 K/mm3 (1.8-7.8); Neutrophils % 89.7 % (37.0-80.0); Platelet Count 136 K/mm3 (142-424); Red Cell Distribution Width 15.9 % (11.5-17.5); White Blood Count 12.8 K/mm3 (4.8-10.8)
[2023-07-15 04:37] LABS: Chloride 99 mmol/L (98-107); Potassium 3.2 mmoL/L (3.5-5.1); Sodium 130 mmol/L (136-145)
[2023-07-15] MEDS: LACTATED RINGERS 1000ML 1,000 ML 999 ML IV (04:38)
[2023-07-15 04:39] LABS: Blood Urea Nitrogen 23 mg/dl (7-17); Creatinine Clearance Estimated 50 mL/min (50-200); Estimated Glomerular Filt Rate 53 ml/min (>60); GFR (African American) 64 ML/MIN (>60)
[2023-07-15 04:40] LABS: Alanine Aminotransferase 25 U/L (12-78); Albumin Level 3.6 g/dl (3.5-5.0); Albumin/Globulin Ratio 1.3 (1.1-1.8); Alkaline Phosphatase 52 U/L (38-126); Anion Gap 7.2 mEq/L (5-15); Aspartate Amino Transferase 35 U/L (14-36); Bilirubin,Total 2.1 mg/dl (0.2-1.3); Calcium 8.6 mg/dl (8.4-10.2); Carbon Dioxide 27 mmol/L (22.0-30.0); Globulin 2.8 g/dL (1.3-3.2); Glucose 129 mg/dl (74-100); MANUAL DIFFERENTIAL MANUAL DIFFERENTIAL (MANUAL DIFF); Total Protein,Serum 6.4 g/dl (6.3-8.2)
[2023-07-15 04:41] LABS: Magnesium 1.7 mg/dl (1.6-2.3); Phosphorous 2.8 mg/dl (2.5-4.5)
[2023-07-15 04:48] LABS: Microscopic, Urine URINE MICROSCOPIC (MICROSCOPIC)
[2023-07-15 04:49] LABS: NT Pro Brain Natriuretic Pep. 4960 pg/mL (0-450)
[2023-07-15 04:52] LABS: Appearance,Urine CLEAR (Clear); Bilirubin,Urine Negative (Negative); Blood, Urine Negative (Negative); Color,Urine DARK YELLOW (Yellow); Glucose,Urine (UA) Negative (Negative); Ketones,Urine TRACE (Negative); Leukocyte Esterase,Urine TRACE (Negative); Nitrate,Urine Negative (Negative); Protein,Urine Negative (Negative); Urobilinogen,Urine 0.2 EU/dl (0.2)
[2023-07-15 04:57] LABS: Eosinophils % 2 % (0-3); Lymphocytes % 6 % (10-50); Monocytes % 3 % (2-9); Neutrophils % 89 % (42-76); Platelet Estimate Slight Decrease; Total Cells Counted 100
[2023-07-15 04:58] LABS: Hypochromasia 1+; Microcytosis 1+; Troponin I < 0.01 ng/ml (0.00-0.034)
[2023-07-15 05:02] LABS: Bacteria,Urine Trace /lpf; Mucus,Urine 1+ /lpf
[2023-07-15 05:05] LABS: Lactic Acid 1.9 mmol/L (0.7-2.1)
[2023-07-15 05:15] LABS: Thyroid Stimulating Hormone < 0.02 uIU/mL (0.465-4.68)
--- NOTE | 2023-07-15 05:15 | PC.NURSE ---
Dr Durant paged at this time.
--- NOTE | 2023-07-15 05:25 | PC.NURSE ---
Notified house linux server administrator of need for bed assignment and admission. Currently boarding patient in ED at this time. Updated patient and family.
[2023-07-15] MEDS: CEFTRIAXONE 1 GM 1 GM in 0.9 % SODIUM CHLORIDE 50 ML IV (05:39)
--- NOTE | 2023-07-15 06:31 | PC.NURSE ---
continuing to board patient in ed. No bed availability at this time per House.
--- NOTE | 2023-07-15 07:48 | PC.NURSE ---
Breakfast tray ordered for pt
--- NOTE | 2023-07-15 08:00 | PC.NURSE ---
Pt ambulatory to bathroom with 1 person assist. Pt provided with breakfast tray. Visitors at BS and call light within reach.
--- NOTE | 2023-07-15 08:52 | PC.NURSE ---
I rounded on the pt, she is resting with her eyes closed at this time.
[2023-07-15 08:56] LABS: Troponin I < 0.01 ng/ml (0.00-0.034)
[2023-07-15] MEDS: 0.9 % SODIUM CHLORIDE 1000ML 1,000 ML 100 ML IV (09:00)
--- NOTE | 2023-07-15 11:29 | PC.NURSE ---
Pt ambulatory to bathroom. No other needs voiced at this time. Call light within reach.
[2023-07-15 11:42] LABS: Troponin I < 0.01 ng/ml (0.00-0.034)
--- NOTE | 2023-07-15 11:50 | PC.NURSE ---
DR OROZCO AT BEDSIDE
--- NOTE | 2023-07-15 12:50 | P.HP_ITS ---
History of Present Illness *Admission Date: 07/15/23 *Reason for visit:: Weakness/UTI *History of present illness: Ms. Millard is an 82 year old female patient of [facility] who I saw in the office 2 days ago with a 3 day history of dysuria and some lower abdominal cramping. Urinalysis at that time was consistent with a UTI. A urine PCR was ordered and she was started on Macrobid. She states that she has not improved at all and has actually gotten worse. She began to feel weak and this morning while going to the bathroom felt faint and sat down in the floor. She was unable to get up and called a family member for help. EMS was also called and brought patient to the ER for evaluation. [facility] Disclaimer: The information contained in this section may have been updated after the patient was seen, as this information can be updated by other users. Medical History (Updated 07/15/23 @ 13:04 by Willie Durant MD) Pancreatitis Anxiety Gout Hypokalemia Pyelonephritis Vitamin D deficiency Hypothyroidism (acquired) MDS (myelodysplastic syndrome) HTN (hypertension) Surgical History History of D&C History of colonoscopy History of cholecystectomy Family History COPD (chronic obstructive pulmonary disease) Cancer Asthma Social History Smoking Status: Never smoker alcohol intake: never current occupational status: retired Travel in the last 8 weeks: None caffeine: Yes Review of Systems Constitutional Constitutional: Denies chills, Denies fever(s) and Reports weakness ENT Ears, Nose, Mouth, and Throat: Reports disequilibrium *Cardiovascular Cardiovascular: Denies chest pain and Denies dyspnea *Respiratory Respiratory: Denies cough and Denies dyspnea *Gastrointestinal Gastrointestinal: Reports abdominal pain (lower, cramping) *Genitourinary Genitourinary: Reports as per HPI and Reports difficulty voiding *Musculoskeletal Musculoskeletal: Denies arthralgias *Neurologic Neurologic: Denies abnormal speech, Denies confusion, Reports disequilibrium and Reports weakness Psychiatric Psychiatric: Denies confusion Meds Home Medications and Allergies Home Medications Medication Instructions Recorded Confirmed Type atenolol 50 mg-chlorthalidone 25 1 tab PO DAILY Hypertension 06/27/18 11/14/22 History mg tablet mecobalamin (vitamin B12) 1,000 1,000 mcg SL DAILY Supplement 06/27/18 11/14/22 History mcg disintegrating tablet,sublingual aspirin 81 mg chewable tablet 81 mg PO DAILY HEART HEALTH 10/16/20 11/14/22 Hi story escitalopram oxalate 5 mg tablet 10 mg PO DAILY MOOD 10/17/20 11/14/22 History allopurinol 100 mg tablet 100 mg PO DAILY uric acid 11/14/22 11/14/22 History levothyroxine 150 mcg tablet 150 mcg PO DAILY thyroid 11/15/22 11/15/22 History cefuroxime axetil 500 mg tablet 500 mg PO Q12H #14 tabs 11/16/22 Rx epinephrine 0.3 mg/0.3 mL 0.3 mg (0.3 mL) IM Q10M PRN 12/03/22 Rx injection, auto-injector (EpiPen anaphylaxis #2 ea 2-Jose Juan) triamcinolone acetonide 0.5 % 1 applic topical BID 14 days #430 12/03/22 Rx topical ointment grams New Prescriptions to Start Prescriptions: Allergies Allergy/AdvReac Type Severity Reaction Status Date / Time egg yolk Allergy Severe rash Verified 11/26/22 16:42 Milk Containing Products Allergy Severe rash Verified 11/26/22 16:42 (Dairy) [Milk Containing Products] Exam Data for Last 24 hours Vital signs and Labs for Last 24 Hours: Temp Pulse Resp BP Pulse Ox O2 Del Method O2 Flow Rate 98.5 F 72 20 119/66 98 Room Air 95 07/15/23 03:39 07/15/23 12:00 07/15/23 12:00 07/15/23 12:00 07/15/23 12:00 07/15/23 11:00 07/15/23 10:00 Laboratory Results - last 24 hr 07/15/23 04:05: SARS-CoV-2 (PCR) Not detected, Influenza A Untype (PCR) Not detected, Influenza Type B (PCR) Not detected 07/15/23 04:12: WBC 12.8 H, RBC 4.90, Hgb 10.9 L, Hct 32.9 L, MCV 67.1 L, MCH 22.2 L, MCHC 33.1, RDW 15.9, Plt Count 136 L, MPV 8.9, Neut % (Auto) 89.7 H, Lymph % (Auto) 5.7 L, [place] % (Auto) 3.3, Eos % (Auto) 1.1, Baso % (Auto) 0.3, Neut # (Auto) 11.5 H, Lymph # (Auto) 0.7, [place] # (Auto) 0.4, Eos # (Auto) 0.1, Baso # (Auto) 0.0, Total Counted 100, Neutrophils % (Manual) 89 H, Lymphocytes % (Manual) 6 L, Monocytes % (Manual) 3, Eosinophils % (Manual) 2, Platelet Estimate Slight decrease, Hypochromasia 1+, Microcytosis 1+, Sodium 130 L, Potassium 3.2 L, Chloride 99, Carbon Dioxide 27, Anion Gap 7.2, BUN 23 H, Creatinine 1.00, Estimated Creat Clear 50, Estimated GFR 53 L, Est GFR ( Amer) 64, Glucose 129 H, Lactate 1.9, Calcium 8.6, Phosphorus 2.8, Magnesium 1.7, Total Bilirubin 2.1 H, AST 35, ALT 25, Alkaline Phosphatase 52, Troponin I < 0.01, NT-Pro-B Natriuret Pep 4960 H, Total Protein 6.4, Albumin 3.6, Globulin 2.8, Albumin/Globulin Ratio 1.3, TSH < 0.02 L 07/15/23 04:35: Urine Color Dark yellow, Urine Appearance Clear, Urine pH 6.0, Ur Specific [place] 1.020, Urine Protein Negative, Urine Glucose (UA) Negative, Urine Ketones Trace, Urine Blood Negative, Urine Nitrate Negative, Urine Bilirub in Negative, Urine Urobilinogen 0.2, Ur Leukocyte Esterase Trace, Urine RBC None, Urine WBC 5-10, Ur Squamous Epith Cells 3-5, Urine Bacteria Trace, Urine Mucus 1+ 07/15/23 08:26: Troponin I < 0.01 07/15/23 11:13: Troponin I < 0.01 I & O for Last 24 hours: Intake & Output 07/12/23 07/13/23 07/14/23 07/16/23 23:59 23:59 23:59 00:59 Weight 162 lb Constitutional Constitutional: no acute distress (conversant) *Routine HEENT Exam Head: Present normocephalic Eye: Present EOMI and PERRL ENT: Present mucous membranes moist *Routine Neck Exam Neck: Present supple; Absent lymphadenopathy *Routine Respiratory Exam Respiratory: Present CTA bilaterally *Routine Cardiovascular Exam Cardiovascular: Present RRR *Routine Abdominal Exam Abdominal: Present soft and normoactive bowel sounds; Absent tenderness *Routine Rectal Exam Rectal:: deferred *Routine Genitalia Exam Genitalia:: deferred *Routine Extremities Exam Extremities: Absent cyanosis, clubbing or edema *Routine Skin Exam Skin: Present warm; Absent rash *Routine Neurological Exam Neurological: Present alert and oriented X3 Assessment and Plan *Assessment and plan (1) Acute UTI: Status: Acute Category: Medical Code(s): N39.0 - Urinary tract infection, site not specified (2) Orthostatic hypotension: Status: Acute Category: Medical Code(s): I95.1 - Orthostatic hypotension (3) JACINTO (acute kidney injury): Status: Acute Category: Medical Code(s): N17.9 - Acute kidney failure, unspecified (4) Dehydration: Status: Acute Category: Medical Code(s): E86.0 - Dehydration (5) Hypothyroidism (acquired): Status: Acute Category: Medical Code(s): E03.9 - Hypothyroidism, unspecified (6) Anxiety: Status: Acute Category: Medical Code(s): F41.9 - Anxiety disorder, unspecified (7) Hypokalemia: Status: Resolved Category: Medical Code(s): E87.6 - Hypokalemia (8) Hyponatremia: Status: Acute Category: Medical Code(s): E87.1 - Hypo-osmolality and hyponatremia (9) MDS (myelodysplastic syndrome): Status: Acute Category: Medical Code(s): D46.9 - Myelodysplastic syndrome, unspecified Plan Patient admitted for further evaluation and manangement. She has failed outpatient treatment with Macrobid for her UTI, PCR results are not available at his time, will change to Rocephin. Will need to correct electrolytes and JACINTO which is likely due to dehydration.
--- NOTE | 2023-07-15 13:01 | PC.NURSE ---
REPORT CALLED TO LUIS RN
--- NOTE | 2023-07-15 13:34 | HMH.PHAINT1 ---
Pharmacy Intervention Comments: MEDICATION RECONCILIATION COMPLETE USING EXTERNAL PHARMACY FILL HISTORY.
[2023-07-15] MEDS: D5W/0.9% NaCl w/40mEq KCL 1,000 ML 100 ML IV ×2 (13:43→23:39)
[2023-07-15] MEDS: LEVOTHYROXINE 150MCG (0.15MG)TAB 150 MCG PO (14:50)
--- NOTE | 2023-07-15 17:53 | PC.NURSE ---
A&OX4. TOLERATING RA WELL. PT HAS HAD NO NEEDS OR C/O SINCE ARRIVAL TO FLOOR, IS VERY PLEASANT. FAMILY HAS REMAINED AT BEDSIDE. PT STATES SHE IS INDEPENDENT AT HOME, BUT DID HAVE A RECENT FALL. PT AND FAMILY INSTRUCTED TO CALL OUT WHEN ANY NEED ARISES. PT V/U. VSS.
[2023-07-15] MEDS: FAMOTIDINE 20MG TABLET 40 MG PO (21:22)
[2023-07-16 04:00] VITALS: BP 114/53; PULSE 66; RESP 18; TEMP 36.6; O2SAT 98; BMI 32.1
[2023-07-16] MEDS: CEFTRIAXONE 1 GM 1 GM in 0.9 % SODIUM CHLORIDE 50 ML IV (06:11)
[2023-07-16] MEDS: LEVOTHYROXINE 150MCG (0.15MG)TAB 150 MCG PO (06:11)
[2023-07-16 06:25] LABS: Basophils % 0.7 % (0.1-2.0); Eosinophils # 0.3 K/mm3 (0.0-0.4); Eosinophils % 5.8 % (0.1-12.0); Hematocrit 28.5 % (37.0-47.0); Hemoglobin 9.2 g/dL (12.2-16.2); Lymphocytes # 0.9 K/mm3 (0.7-4.5); Lymphocytes % 17.2 % (10-50); Mean Corpuscular HGB Conc 32.5 g/dL (31.8-35.4); Mean Corpuscular Hemoglobin 22.1 pg (27.0-31.2); Mean Corpuscular Volume 67.9 fl (81-99); Mean Platelet Volume 9.2 fl (7.4-10.4); Monocytes # 0.3 K/mm3 (0.1-1.0); Monocytes % 5.9 % (1.7-9.3); Neutrophils # 3.6 K/mm3 (1.8-7.8); Neutrophils % 70.5 % (37.0-80.0); Platelet Count 113 K/mm3 (142-424); Red Blood Count 4.19 M/mm3 (4.20-5.40); Red Cell Distribution Width 15.8 % (11.5-17.5); White Blood Count 5.1 K/mm3 (4.8-10.8)
[2023-07-16 06:34] LABS: Anion Gap 4.1 mEq/L (5-15); Blood Urea Nitrogen 13 mg/dl (7-17); Calcium 7.8 mg/dl (8.4-10.2); Carbon Dioxide 30 mmol/L (22.0-30.0); Chloride 106 mmol/L (98-107); Creatinine Clearance Estimated 53 mL/min (50-200); Estimated Glomerular Filt Rate 80 ml/min (>60); GFR (African American) 97 ML/MIN (>60); Glucose 121 mg/dl (74-100); Potassium 3.1 mmoL/L (3.5-5.1); Sodium 137 mmol/L (136-145)
[2023-07-16 08:00] VITALS: BP 127/64; PULSE 62; RESP 18; TEMP 36.7; O2SAT 99
[2023-07-16] MEDS: ENOXAPARIN 40MG/0.4ML SYRINGE 40 MG SQ (08:50)
[2023-07-16] MEDS: CITALOPRAM 20MG TABLET 20 MG PO (08:50)
--- NOTE | 2023-07-16 09:01 | P.PN_ITS ---
Subjective *Date: 07/16/23 *Time: 09:01 Interval history: Patient with no new complaints today. Medical Exam Vital signs and Labs for Last 24 Hours: Vital Signs Temp Pulse Pulse Resp BP BP Pulse Ox 07/16/23 08:00 98.1 F 62 18 127/64 99 07/16/23 07:00 07/16/23 05:00 07/16/23 04:00 97.9 F 66 18 114/53 L 98 07/16/23 03:00 07/16/23 01:00 07/15/23 23:00 07/15/23 21:00 07/15/23 21:00 07/15/23 20:00 99.0 F 70 17 113/63 98 07/15/23 18:55 07/15/23 17:00 07/15/23 16:00 97.8 F 82 19 108/56 L 98 07/15/23 14:36 07/15/23 14:34 07/15/23 14:00 97.8 F 80 18 122/60 97 07/15/23 13:24 98.5 F 72 18 122/60 07/15/23 13:01 15 116/49 L 07/15/23 12:31 68 23 141/97 H 96 07/15/23 12:00 72 20 119/66 98 07/15/23 11:31 72 20 133/67 97 07/15/23 11:30 72 24 133/67 96 07/15/23 11:00 21 109/68 L 97 07/15/23 10:30 22 106/52 L 96 07/15/23 10:00 24 94/60 L 07/15/23 09:30 91 H 18 110/56 L 96 O2 Del Method O2 Flow Rate 07/16/23 08:00 Room Air 07/16/23 07:00 Room Air 07/16/23 05:00 Room Air 07/16/23 04:00 Room Air 07/16/23 03:00 Room Air 07/16/23 01:00 Room Air 07/15/23 23:00 Room Air 07/15/23 21:00 Room Air 07/15/23 21:00 Room Air 07/15/23 20:00 Room Air 07/15/23 18:55 Room Air 07/15/23 17:00 Room Air 07/15/23 16:00 Room Air 07/15/23 14:36 Room Air 07/15/23 14:34 Room Air 07/15/23 14:00 Room Air 07/15/23 13:24 Room Air 07/15/23 13:01 07/15/23 12:31 07/15/23 12:00 07/15/23 11:31 07/15/23 11:30 07/15/23 11:00 Room Air 07/15/23 10:30 Room Air 07/15/23 10:00 Room Air 07/15/23 09:30 Intake and Output 07/15/23 07/16/23 07/16/23 23:59 07:59 15:59 Intake Total 270 / 270 535 / 535 Output Total 0 / 0 0 / 0 Balance 270 / 270 0 / 535 535 / 535 Intake: Intake, Oral Amount 270 / 270 535 / 535 Output: Output, Urine Amount 0 / 0 0 / 0 Other: Number of Voids 1 0 Number of Unmeasured Voids 1 1 Weight 170 lb 4 oz Patient Weight 07/16/23 23:59 Weight 170 lb 4 oz Laboratory Results - last 24 hr 07/15/23 11:13: Troponin I < 0.01 07/16/23 05:24: WBC 5.1 D, RBC 4.19 L, Hgb 9.2 L, Hct 28.5 L, MCV 67.9 L, MCH 22.1 L, MCHC 32.5, RDW 15.8, Plt Count 113 L, MPV 9.2, Neut % (Auto) 70.5, Lymph % (Auto) 17.2, [place] % (Auto) 5.9, Eos % (Auto) 5.8, Baso % (Auto) 0.7, Neut # (Auto) 3.6, Lymph # (Auto) 0.9, [place] # (Auto) 0.3, Eos # (Auto) 0.3, Baso # (Auto) 0.0, Sodium 137, Potassium 3.1 L, Chloride 106, Carbon Dioxide 30, Anion Gap 4.1 L, BUN 13 D, Creatinine 0.70 D, Estimated Creat Clear 53, Estimated GFR 80, Est GFR ( Amer) 97 D, Glucose 121 H, Calcium 7.8 L I & O for Labs for Last 24 Hours: Intake & Output 07/13/23 07/14/23 07/15/23 03/11/24 22:59 22:59 23:59 23:59 Intake Total 535 / 535 Output Total 0 / 0 Balance 535 / 535 Weight 170 lb 4 oz Constitutional: Present no acute distress Respiratory: Present normal respiratory effort Cardiac: Present Reg Rate and Rhythm GI: Present normal bowel sounds; Absent tenderness Extremities: Present normal inspection and full ROM Skin: Present intact; Absent erythema Neuro: Present Grossly Intact and moves all extremities Assessment and Plan *Assessment and plan (1) E. coli UTI: Status: Acute Category: Medical Code(s): N39.0 - Urinary tract infection, site not specified; B96.20 - Unspecified Escherichia coli [E. coli] as the cause of diseases classified elsewhere (2) Orthostatic hypotension: Status: Acute Category: Medical Code(s): I95.1 - Orthostatic hypotension (3) JACINTO (acute kidney injury): Status: Acute Category: Medical Code(s): N17.9 - Acute kidney failure, unspecified (4) Dehydration: Status: Acute Category: Medical Code(s): E86.0 - Dehydration (5) Hypothyroidism (acquired): Status: Acute Category: Medical Code(s): E03.9 - Hypothyroidism, unspecified (6) Anxiety: Status: Acute Category: Medical Code(s): F41.9 - Anxiety disorder, unspecified (7) Hypokalemia: Status: Resolved Category: Medical Code(s): E87.6 - Hypokalemia (8) Hyponatremia: Status: Acute Category: Medical Code(s): E87.1 - Hypo-osmolality and hyponatremia (9) MDS (myelodysplastic syndrome): Status: Acute Category: Medical Code(s): D46.9 - Myelodysplastic syndrome, unspecified (10) Enterococcus UTI: Status: Acute Category: Medical Code(s): N39.0 - Urinary tract infection, site not specified; B95.2 - Enterococcus as the cause of diseases classified elsewhere Plan Outpatient urine PCR shows E coli and enterococcus, sensitivities pending, continue Rocephin for now, have PT see patient today. Replace potassium.
[2023-07-16] MEDS: D5W/0.9% NaCl w/40mEq KCL 1,000 ML 100 ML IV (09:10)
[2023-07-16] MEDS: POTASSIUM CHLORIDE 20MEQ TAB 20 MEQ PO ×2 (10:13→16:18)
--- NOTE | 2023-07-16 10:37 | HMH.PTEV ---
Physical Therapy Evaluation Rehab PT IP Evaluation Start: 07/16/23 09:05 Freq: ONCE Status: Active Protocol: Document 07/16/23 10:23 MAURI (Rec: 07/16/23 10:36 MAURI [id number]) Subjective/History History History Patient is an 82 year old female that presents to [facility] with a diagnosis of an UTI, following multiple falls at home. The patient's PMH is signifcant for Pancreatitis, Anxiety, Gout, Hypokalemia, Pyelonephritis, Vitamin D deficiency, Hypothyroidism ( acquired), MDS ( myelodysplastic syndrome), HTN (hypertension) Subjective Subjective The patient is agreeable to PT . She reports that she is not in pain. She reports that she lives alone in a 1-story house that has two steps with hand- rails into the garage. The patient reports that she is fully independent at her baseline and requires no assistive devices for ambulation. The patient reports that she needs no assistance for ADLs and still drives. New diagnosis of cancer in past 12 Yes months? Rehab PT IP Eval Objective Appearance Patient Behavior Appropriate,Cooperative Patient Orientation Person,Place,Time,Birthday Difficulty following instructions none Speech Pattern Clear,Appropriate,Coherent Ambulation Patient Able to Ambulate Yes Ambulation Observation IP General Gait Pattern Observation No Deviations/Normal Ambulation Distance (feet) 150 Ambulation Assistive Device None Ambulation Ability Supervision/Stand by Balance Ability to Arise Able, w/o using arms Sitting Balance Steady, safe Standing Balance Narrow stance w/o support Dynamic Sitting Balance Ability Normal Dynamic Standing Balance Ability Normal Transfers Bed Transfer Ability Independent Chair Transfer Ability Independent Sit to Stand Bed Transfer Ability Independent Sit to Stand Chair Transfer Ability Independent Rehab PT IP prob,goals,plan Problems Date of Evaluation: 07/16/23 Discharge Plan PT Discharge Plan Patient presented for initial evaluation today. The patient presented near her baseline in bed mobility, transfers and ambulation. The patient presents safely for discharge to home at this time. Skilled PT is not indicated for this patient during her stay. Eval Complexity Eval Charge Codes 82693 - High Complexity PHYSICIAN CERTIFICATION: I certify the specified therapy services for Nupur Ann Millard are required, authorized, and reviewed every 30 days.
[2023-07-16 16:00] VITALS: BP 121/62; PULSE 60; RESP 16; TEMP 36.4; O2SAT 98
--- NOTE | 2023-07-19 23:43 | EXP.DC.SUM ---
General Admission date:: 07/15/23 Discharge date: 07/16/23 HPI HPI HPI: Ms. Millard is an 82 year old female patient of [facility] who I saw in the office 2 days ago with a 3 day history of dysuria and some lower abdominal cramping. Urinalysis at that time was consistent with a UTI. A urine PCR was ordered and she was started on Macrobid. She states that she has not improved at all and has actually gotten worse. She began to feel weak and this morning while going to the bathroom felt faint and sat down in the floor. She was unable to get up and called a family member for help. EMS was also called and brought patient to the ER for evaluation. Hospital Course Hospital Course Hospital Course: The patient was admitted as she had failed outpatient treatment with Macrobid for her UTI. She was started on Rocephin and IV fluids to correct electrolytes and acute kidney injury which was likely due to dehydration. By 07/16/2023, she was feeling better. Her potassium was replaced. PCR outpatient showed E. coli and Enterococcus. She was stable to be discharged home on cefuroxime. Exam Data for Last 24 hours Vital signs and Labs for Last 24 Hours: Temp Pulse Resp BP Pulse Ox O2 Del Method O2 Flow Rate 97.5 F L 60 16 121/62 98 Room Air 95 07/16/23 16:00 07/16/23 16:00 07/16/23 16:00 07/16/23 16:00 07/16/23 16:00 07/16/23 16:38 07/15/23 10:00 I & O for Last 24 hours: Intake & Output 07/17/23 07/18/23 07/19/23 07/20/23 11:59 11:59 11:59 11:59 Intake Total 270 / 270 Balance 270 / 270 Narrative: Constitutional Constitutional: no acute distress (conversant) *Routine HEENT Exam Head: Present normocephalic Eye: Present EOMI and PERRL ENT: Present mucous membranes moist *Routine Neck Exam Neck: Present supple; Absent lymphadenopathy *Routine Respiratory Exam Respiratory: Present CTA bilaterally *Routine Cardiovascular Exam Cardiovascular: Present RRR *Routine Abdominal Exam Abdominal: Present soft and normoactive bowel sounds; Absent tenderness *Routine Rectal Exam Rectal:: deferred *Routine Genitalia Exam Genitalia:: deferred *Routine Extremities Exam Extremities: Absent cyanosis, clubbing or edema *Routine Skin Exam Skin: Present warm; Absent rash *Routine Neurological Exam Neurological: Present alert and oriented X3 DS: Diagnosis Discharge Diagnosis (1) E. coli UTI: Status: Acute Code(s): N39.0 - Urinary tract infection, site not specified; B96.20 - Unspecified Escherichia coli [E. coli] as the cause of diseases classified elsewhere (2) Orthostatic hypotension: Status: Acute Code(s): I95.1 - Orthostatic hypotension (3) JACINTO (acute kidney injury): Status: Acute Code(s): N17.9 - Acute kidney failure, unspecified (4) Dehydration: Status: Acute Code(s): E86.0 - Dehydration (5) Hypothyroidism (acquired): Status: Acute Code(s): E03.9 - Hypothyroidism, unspecified (6) Anxiety: Status: Acute Code(s): F41.9 - Anxiety disorder, unspecified (7) Hypokalemia: Status: Resolved Code(s): E87.6 - Hypokalemia (8) Hyponatremia: Status: Acute Code(s): E87.1 - Hypo-osmolality and hyponatremia (9) MDS (myelodysplastic syndrome): Status: Acute Code(s): D46.9 - Myelodysplastic syndrome, unspecified (10) Enterococcus UTI: Status: Acute Code(s): N39.0 - Urinary tract infection, site not specified; B95.2 - Enterococcus as the cause of diseases classified elsewhere Meds Home Medications and Allergies Home Medications Medication Instructions Recorded Confirmed Type atenolol 50 mg-chlorthalidone 25 1 tab PO DAILY 06/27/18 07/17/23 History mg tablet levothyroxine 150 mcg tablet 150 mcg PO DAILYDM 11/15/22 07/17/23 History escitalopram oxalate 10 mg tablet 10 mg PO DAILY 07/15/23 07/17/23 History potassium chloride 10 mEq 10 meq PO DAILY 07/15/23 07/17/23 History capsule,extended release probenecid 500 mg-colchicine 0.5 1 tab PO DAILY 07/15/23 07/17/23 History mg tablet cefuroxime axetil 250 mg tablet 250 mg PO BID #14 tabs 07/16/23 07/17/23 Rx aspirin 81 mg tablet,delayed 81 mg PO DAILY #0 tabs 07/18/23 Rx release atorvastatin 80 mg tablet 80 mg PO HS #30 tabs 07/18/23 Rx clopidogrel 75 mg tablet 75 mg PO DAILY #30 tabs 07/18/23 Rx New Prescriptions to Start Prescriptions: cefuroxime axetil Willie Durant Allergies Allergy/AdvReac Type Severity Reaction Status Date / Time No Known Allergies Allergy Verified 07/16/23 08:09 Discharge Plan Disposition Patient Disposition: Home, Self-Care Condition: Fair Follow up Plan Follow up with: Willie Durant MD [Primary Care Provider] - 07/26/23 10:00 am Prescriptions/Medication Reconciliation: New cefuroxime axetil 250 mg tablet 250 mg PO BID Qty: 14 0RF Continued atenolol-chlorthalidone 50-25 mg tablet 1 tab PO DAILY levothyroxine 150 mcg tablet 150 mcg PO DAILYDM Patient Comments: TAKE 1 TABLET BY MOUTH ONCE DAILY potassium chloride 10 mEq capsule, extended release 10 meq PO DAILY Patient Comments: TAKE 1 CAPSULE BY MOUTH ONCE DAILY FOR 90 DAYS probenecid-colchicine 500-0.5 mg tablet 1 tab PO DAILY Patient Comments: TAKE 1 TABLET BY MOUTH ONCE DAILY escitalopram oxalate 10 mg tablet 10 mg PO DAILY Patient Comments: TAKE 1 TABLET BY MOUTH ONCE DAILY FOR 90 DAYS No Action clopidogrel 75 mg Tablet 75 mg PO DAILY Qty: 30 0RF aspirin 81 mg Tablet,Delayed Release (Dr/Ec) 81 mg PO DAILY Qty: 0 0RF atorvastatin 80 mg tablet 80 mg PO HS Qty: 30 0RF Problem Reconciliation Problems Reviewed?: Yes Patient Discharge Instructions ACTIVITY: Continue current activity DIET: continue same diet Patient Instructions: Urinary Tract Infection Providers Primary Care Provider: Willie Durant Admit Provider: Willie Durant Attending Provider: Willie Durant
== END 2023-07-16 17:26 | disposition home or self-care (01) ==
LOC: ER 05:27 → 2ND 05:33
PROVIDERS: Admitting Provider Family Medicine; Emergency Provider Emergency Medicine; PCP Family Medicine; Visit Provider Family Medicine
DX: N39.0 Urinary tract infection, site not specified (principal); I95.1 Orthostatic hypotension; N17.9 Acute kidney failure, unspecified; E86.0 Dehydration; E03.9 Hypothyroidism, unspecified; F41.9 Anxiety disorder, unspecified; E87.6 Hypokalemia; E87.1 Hypo-osmolality and hyponatremia; D46.9 Myelodysplastic syndrome, unspecified; B96.20 Unspecified Escherichia coli [E. coli] as the cause of diseases classified elsewhere; B95.2 Enterococcus as the cause of diseases classified elsewhere
CPT/HCPCS: 36415; 71046; 80048; 80053; 81001; 83605; 83735; 83880; 84100; 84443; 84484; 85007; 85025; 87086; 87636; 93005; 97163; 99285; G0378; J0696

== ENCOUNTER 2023-07-16 21:52 | Inpatient (IN) | payer MEDICARE, SELFPAY ==
[2023-07-16 21:52] VITALS: BP 136/83; PULSE 57; RESP 18; TEMP 36.6; O2SAT 100; BMI 30.2
--- NOTE | 2023-07-16 22:34 | PC.NURSE ---
states call stroke alert
--- NOTE | 2023-07-16 22:36 | ED_ITS ---
Discharge Plan Disposition Patient Disposition: Admitted Chief Complaint: Neuro Symptoms/Deficit Prescriptions Prescriptions: No Action atenolol-chlorthalidone 50-25 mg tablet 1 tab PO DAILY levothyroxine 150 mcg tablet 150 mcg PO DAILYDM Patient Comments: TAKE 1 TABLET BY MOUTH ONCE DAILY potassium chloride 10 mEq capsule, extended release 10 meq PO DAILY Patient Comments: TAKE 1 CAPSULE BY MOUTH ONCE DAILY FOR 90 DAYS probenecid-colchicine 500-0.5 mg tablet 1 tab PO DAILY Patient Comments: TAKE 1 TABLET BY MOUTH ONCE DAILY escitalopram oxalate 10 mg tablet 10 mg PO DAILY Patient Comments: TAKE 1 TABLET BY MOUTH ONCE DAILY FOR 90 DAYS cefuroxime axetil 250 mg tablet 250 mg PO BID Qty: 14 0RF Referrals Follow up/Referrals: Willie Durant MD [Primary Care Provider] - See instructions Clinical Impressions Clinical Impression: Acute CVA (cerebrovascular accident), Left-sided sensory deficit present, LUE weakness Discharge ED Provider: Reyna Velásquez General Adult HPI General Chief complaint: Neuro Symptoms/Deficit Stated complaint: Weakness Time Seen by Provider: 07/16/23 22:25 Mode of Arrival: EMS Source of Information: Patient and EMS Limitations: No Limitations Description of Symptoms (Recalled from ER Triage Doc. by RN): Patient was discharged from the floor today and spent the afternoon at home. Patient states at approximately 2130 she felt as though she was out of body and her voice sounded far away while she was talking. Patient reports that this episode lasted approximately 10 minutes and she still feels funny but is much improved at this time. Patient was being treated for a UTI whlie admitted. History of Present Illness HPI narrative: Is an 82-year-old female presenting today with strokelike symptoms. Patient states that she was recently in the hospital for urinary tract infection and weakness and near syncope and was discharged today. States she was feeling okay without any symptoms until abruptly around 8 PM she started having what she describes as a out of body experience around the same time she started feeling significant loss of sensation in her left upper left lower extremity. From historical standpoint she denies any known motor weakness. No history of strokes no history of any intracranial pathology no history of being on any anticoagulation. No recent surgeries. Other than thyroid dysfunction and thyroid medication she denies any other past medical history that are significant. Related Data Home Medications Medication Instructions Recorded Confirmed atenolol 50 mg-chlorthalidone 25 1 tab PO DAILY High Blood Pressure 06/27/18 07/15/23 mg tablet levothyroxine 150 mcg tablet 150 mcg PO DAILYDM thyroid 11/15/22 07/15/23 escitalopram oxalate 10 mg tablet 10 mg PO DAILY MOOD 07/15/23 07/15/23 potassium chloride 10 mEq 10 meq PO DAILY Supplement 07/15/23 07/15/23 capsule,extended release probenecid 500 mg-colchicine 0.5 1 tab PO DAILY GOUT 07/15/23 07/15/23 mg tablet Previous Rx's Medication Instructions Recorded cefuroxime axetil 250 mg tablet 250 mg PO BID #14 tabs 07/16/23 Allergies Allergy/AdvReac Type Severity Reaction Status Date / Time No Known Allergies Allergy Verified 07/16/23 08:09 [facility] Disclaimer: The information contained in this section may have been updated after the patient was seen, as this information can be updated by other users. Medical History (Updated 07/16/23 @ 22:37 by Reyna Velásquez MD) Pancreatitis Anxiety Gout Hypokalemia Pyelonephritis Vitamin D deficiency Hypothyroidism (acquired) MDS (myelodysplastic syndrome) HTN (hypertension) Surgical History History of D&C History of colonoscopy History of cholecystectomy Family History COPD (chronic obstructive pulmonary disease) Cancer Asthma Social History Smoking Status: Never smoker alcohol intake: never current occupational status: retired Travel in the last 8 weeks: None caffeine: Yes ROS Obtained: Yes All systems reviewed & no additional complaints except as documented Physical Exam General General appearance: alert and in no apparent distress Head Head exam: atraumatic and normocephalic Respiratory Respiratory exam: Present normal lung sounds bilaterally; Absent respiratory distress Cardiovascular Cardiovascular exam: Present regular rate and normal rhythm Abdominal Exam Abdominal exam: Present soft and distention Neurological Exam Neurological exam: Present alert, oriented X3 and CN II-XII intact Expanded Neurological Exam Patient oriented to: Present person, place and time Speech: Present fluid speech; Absent receptive aphasia or expressive aphasia Cranial nerves: Normal: EOM function (II, III, IV, ), facial sensation (V), facial palsy (VII), gag reflex (IX), spinal accessory function (XI) and tongue deviation (XII) Cerebellar function: Normal: finger to nose and heel to mcfarlane Motor strength - LUE: 4/5 Motor strength - RUE: 5/5 Motor strength - LLE: 5/5 Motor strength - RLE: 5/5 Sensory exam upper extremity: Abnormal Left: light touch, pin prick and temperature Sensory exam lower extremity: Normal: light touch, pin prick and temperature Medical Decision Making Chai Inquiry Pt receiving controlled substance: No Vital Signs: 07/16/23 21:52 Temperature 97.9 F Temperature Source Oral Pulse Rate [Left Radial] 57 L Respiratory Rate 18 Blood Pressure [Right Arm] 136/83 Blood Pressure Mean [Right Arm] 100 Blood Pressure Source [Right Arm] Automatic Cuff Blood Pressure Position [Right Arm] Sitting 02 Sat by Pulse Oximetry 100 Oxygen Delivery Method Room Air Lab Data Lab results reviewed: Yes I reviewed the patient's lab results. Lab Results 07/16/23 21:55: WBC 5.0, RBC 4.44, Hgb 9.7 L, Hct 30.2 L, MCV 68.0 L, MCH 21.8 L , MCHC 32.1, RDW 15.7, Plt Count 147 D, MPV 9.7, Neut % (Auto) 53.8, Lymph % (Auto) 31.1, [place] % (Auto) 8.2, Eos % (Auto) 6.2, Baso % (Auto) 0.7, Neut # (Auto) 2.7, Lymph # (Auto) 1.5, [place] # (Auto) 0.4, Eos # (Auto) 0.3, Baso # (Auto) 0.0, PT 10.8, INR 1.00, APTT 27.6, Sodium 136, Potassium 3.4 L, Chloride 107, Carbon Dioxide 26, Anion Gap 6.4, BUN 10, Creatinine 0.70, Estimated Creat Clear 50, Estimated GFR 80, Est GFR ( Amer) 97, Glucose 95 D, Calcium 8.5, Total Bilirubin 0.9, AST 27, ALT 20, Alkaline Phosphatase 53, Troponin I < 0.01, Total Protein 6.2 L, Albumin 3.2 L, Globulin 3.0, Albumin/Globulin Ratio 1.1 07/16/23 21:55 07/16/23 21:55 Orders (Tests/Meds): ED MEDICATIONS Generic Name Dose Route Start Last Admin Trade Name Freaaron PRN Reason Stop Dose Admin Lactated Ringer's 1,000 mls @ 999 mls/hr 07/16/23 22:45 Lactated Ringer's 1000 Ml Bag IV 07/16/23 23:45 .[id number] NIKITA Discontinued Medications Generic Name Dose Route Start Last Admin Trade Name Freq PRN Reason Stop Dose Admin Aspirin 324 mg 07/16/23 23:18 Aspirin 81mg Chewable Tablet PO 07/16/23 23:19 ONCE ONE Clopidogrel Bisulfate 300 mg 07/16/23 23:18 Clopidogrel 300mg Tablet PO 07/16/23 23:19 ONCE ONE Iopamidol 100 ml 07/16/23 23:05 07/16/23 23:06 Iopamidol-370 (76%);100ml Bottle IV 07/16/23 23:06 100 ml ONCE ONE Administration Sodium Chloride 10 ml 07/16/23 23:05 07/16/23 23:06 Sodium Chloride 0.9% 10ml Syr (Rad Only) IV 07/16/23 23:06 10 ml ONCE ONE Administration ORDERS Category Date Time Status CT angio head Stat Cat Scan 07/16/23 22:[address] angio neck Stat Cat Scan 07/16/23 22:[address] head/brain wo con Stat Cat Scan 07/16/23 22:40 Completed CXR --portable [XR chest portable] Stat Exams 07/16/23 22:41 Completed CBC w/Auto Diff [Complete Blood Count Auto Diff] Stat Lab 07/16/23 21:55 Completed CMP [Comprehensive Metabolic Panel] Stat Lab 07/16/23 21:55 Completed PT/PTT Stat Lab 07/16/23 21:55 Completed Trop I [Troponin I] Stat Lab 07/16/23 21:55 Completed Troponin I Q3H Lab 07/17/23 01:45 Ordered Troponin I Q3H Lab 07/17/23 04:45 Ordered Medical Decision Narrative: Patient with above history last known normal 8 PM. Objectively she has decreased position sense and temperature and pain sensation in her entire left upper extremity subjectively she also had the symptoms in the left lower extremity but does seem to have resolved at this point. She has a normal motor exam bilateral lower extremities. However she did have significant pronator drift in her left upper extremity she was unaware of the fact that she had weakness but she does have objective weakness there. The remainder of her neurologic exam is nonfocal. I have given her an NIH stroke scale of 3 right now. I do presume that this is a an acute CVA. She has been stroke alerted images are being shared with [facility] remainder of her workup is initiated. She does not seem to have any type of contraindication for tPA at the moment. Reassessment 11:30 PM after CTs were performed we discussed with [facility] there is no evidence of an LVO no indication for thrombectomy. Patient no contraindications for tPA we went to have discussion regarding thrombolytics. However at this time on reassessment patient had improvement in her pronator drift. She is also starting to have some improvement in her sensory function but still has persistent sensory deficits in the left upper extremity. At this point I believe her symptoms are significantly improving from historical standpoint prehospital to this point. Had extensive discussion with risk and benefits with the patient and her family and we all agree not to proceed with thrombolytics. I called [facility] coordinators back to inform them of this decision we will load with aspirin and Plavix and she will be admitted here while they have put her on the list for possible transfer. I subsequently spoke with Dr. Bajwa who agreed to admit the patient for further evaluation and management. Critical Care Critical Care Time Critical Care Time: Yes Attestation: On 07/16/23, the high probability of a clinically significant, sudden or life threatening deterioration of the following system(s) required my full and direct attention, intervention and personal management. The time I documented below is in addition to time spent performing reported procedures but includes the following listed in this critical care notation. Total Time Total Critical Care Time: 35
--- NOTE | 2023-07-16 22:37 | PC.NURSE ---
pt waiting on ct table.
--- NOTE | 2023-07-16 22:40 | CT_ITS ---
PROCEDURE INFORMATION: Exam: CTA Head With Contrast, Arteriography Exam date and time: 07/16/2023 9:47 PM Age: 82 years old Clinical indication: Stroke-like symptoms; Lt upper extremity and lt lower extremity weakness; Additional info: Lue weakness, lue and lle sensory deficit lkn 8p TECHNIQUE: Imaging protocol: Computed tomographic angiography of the head with contrast. Exam focused on the arteries. 3D rendering (Not supervised by radiologist): MIP and/or 3D reconstructed images were created by the technologist. Radiation optimization: All CT scans at this facility use at least one of these dose optimization techniques: automated exposure control; mA and/or kV adjustment per patient size (includes targeted exams where dose is matched to clinical indication); or iterative reconstruction. Contrast material: ISOVUE; Contrast volume: 100 ml; Contrast route: INTRAVENOUS (IV); COMPARISON: CT HEAD/BRAIN WO CON 07/16/2023 9:43 PM FINDINGS: ANTERIOR CIRCULATION: Right internal carotid artery: Atherosclerotic calcifications are seen involving the right cavernous internal carotid artery. There is no significant stenosis. Right middle cerebral artery: The right middle cerebral artery and its proximal branches are patent. There is occlusion of a distal posterior right M3 branch. Right anterior cerebral artery: No occlusion or significant stenosis. No aneurysm. Left internal carotid artery: Atherosclerotic calcifications are seen involving the left cavernous internal carotid artery. There is no significant stenosis. Left middle cerebral artery: No occlusion or significant stenosis. No aneurysm. Left anterior cerebral artery: No occlusion or significant stenosis. No aneurysm. POSTERIOR CIRCULATION: Right vertebral artery: No occlusion or significant stenosis. No aneurysm. Left vertebral artery: No occlusion or significant stenosis. No aneurysm. Basilar artery: No occlusion or significant stenosis. No aneurysm. Right posterior cerebral artery: No occlusion or significant stenosis. No aneurysm. Left posterior cerebral artery: There is persistent origin of the left posterior cerebral artery. There is no stenosis. Brain: No definite mass, mass effect, or midline shift. Cerebral ventricles: No ventriculomegaly. Bones/joints: Unremarkable. No acute fracture. Soft tissues: Unremarkable. IMPRESSION: Occlusion of a distal posterior right M3 branch.
--- NOTE | 2023-07-16 22:40 | CT_ITS ---
PROCEDURE INFORMATION: Exam: CTA Neck With Contrast Exam date and time: 07/16/2023 9:47 PM Age: 82 years old Clinical indication: Stroke-like symptoms; Lt upper extremity and lt lower extremity weakness; Additional info: Lue weakness, lue and lle sensory deficit lkn 8p TECHNIQUE: Imaging protocol: Computed tomographic angiography of the neck with contrast. Exam focused on the cervical segments of the vasculature. 3D rendering (Not supervised by radiologist): MIP and/or 3D reconstructed images were created by the technologist. Radiation optimization: All CT scans at this facility use at least one of these dose optimization techniques: automated exposure control; mA and/or kV adjustment per patient size (includes targeted exams where dose is matched to clinical indication); or iterative reconstruction. Contrast material: ISOVUE; Contrast volume: 100 ml; Contrast route: INTRAVENOUS (IV); COMPARISON: CT ANGIO HEAD 07/16/2023 9:47 PM FINDINGS: Right common carotid artery: No stenosis. No dissection or occlusion. Right internal carotid artery: No stenosis of the extracranial segment. No dissection or occlusion. Right external carotid artery: No occlusion or stenosis of the origin. Left common carotid artery: No stenosis. No dissection or occlusion. Left internal carotid artery: No stenosis of the extracranial segment. No dissection or occlusion. Left external carotid artery: No occlusion or stenosis of the origin. Right vertebral artery: The proximal right vertebral artery is obscured by adjacent dense venous contrast. The remaining right vertebral artery is hypoplastic but patent. Left vertebral artery: The left vertebral artery originates from the aortic arch. There is no stenosis. Soft tissues: Normal. No significant soft tissue swelling. Bones/joints: Moderate degenerative changes of the cervical spine are present. Lungs: Interlobular septal thickening or interstitial edema is present in the lung apices. Pleural spaces: There are tiny bilateral pleural effusions. IMPRESSION: No significant carotid or vertebral artery stenosis within the neck REFERENCES: NASCET CRITERIA. The degree of stenosis in the cervical segment of the internal carotid artery is based on NASCET criteria. Normal is no stenosis. Mild is less than 50% stenosis. Moderate is 50-69% stenosis. Severe is 70% to 99% stenosis. Total occlusion is no detectable patent lumen.
--- NOTE | 2023-07-16 22:40 | CT_ITS ---
PROCEDURE INFORMATION: Exam: CT Head Without Contrast Exam date and time: 07/16/2023 9:43 PM Age: 82 years old Clinical indication: Stroke-like symptoms; Lt upper extremity and lt lower extremity weakness; Additional info: Lue weakness, lue and lle sensory deficit lkn 8p TECHNIQUE: Imaging protocol: Computed tomography of the head without contrast. Radiation optimization: All CT scans at this facility use at least one of these dose optimization techniques: automated exposure control; mA and/or kV adjustment per patient size (includes targeted exams where dose is matched to clinical indication); or iterative reconstruction. Other technique: STROKE PROTOCOL was implemented. COMPARISON: No relevant prior studies available. FINDINGS: Brain: There is no acute intracranial hemorrhage, cerebral edema, or midline shift. A chronic infarct is noted in the left occipital lobe. Mild chronic small vessel ischemic disease is present in the cerebral white matter. Age-related cerebral and cerebellar volume loss is present. Cerebral ventricles: No hydrocephalus. Paranasal sinuses: There is no acute sinusitis. Mastoid air cells: Visualized mastoid air cells are well aerated. Orbital cavities: The visualized orbits appear unremarkable. Bones/joints: No acute fracture. Soft tissues: Unremarkable. Vasculature: Atherosclerotic calcifications are seen involving the cavernous carotid arteries. IMPRESSION: 1. No acute intracranial abnormality. 2. Chronic findings as discussed above. 3. Nicole Stroke Program Early CT Score (ASPECTS) = 10
--- NOTE | 2023-07-16 22:41 | XR_ITS ---
PROCEDURE INFORMATION: Exam: XR Chest Exam date and time: 07/16/2023 10:47 PM Age: 82 years old Clinical indication: Dyspnea TECHNIQUE: Imaging protocol: Radiologic exam of the chest. Views: 1 view. COMPARISON: CR XR CHEST 2V 07/15/2023 4:11 AM FINDINGS: Lungs: Central pulmonary vascular congestion is present. There is no overt pulmonary edema. Pleural spaces: There are probable tiny bilateral pleural effusions. Heart/Mediastinum: No significant cardiac silhouette enlargement. Vasculature: Tortuosity of the thoracic aorta is noted. Bones/joints: Unremarkable. IMPRESSION: Findings suggestive of mild volume overload
[2023-07-16 22:51] LABS: Chloride 107 mmol/L (98-107); Sodium 136 mmol/L (136-145)
[2023-07-16 22:52] LABS: Potassium 3.4 mmoL/L (3.5-5.1)
[2023-07-16 22:53] LABS: Basophils % 0.7 % (0.1-2.0); Eosinophils # 0.3 K/mm3 (0.0-0.4); Eosinophils % 6.2 % (0.1-12.0); Hematocrit 30.2 % (37.0-47.0); Hemoglobin 9.7 g/dL (12.2-16.2); Lymphocytes # 1.5 K/mm3 (0.7-4.5); Lymphocytes % 31.1 % (10-50); Mean Corpuscular HGB Conc 32.1 g/dL (31.8-35.4); Mean Corpuscular Hemoglobin 21.8 pg (27.0-31.2); Mean Platelet Volume 9.7 fl (7.4-10.4); Monocytes # 0.4 K/mm3 (0.1-1.0); Monocytes % 8.2 % (1.7-9.3); Neutrophils # 2.7 K/mm3 (1.8-7.8); Neutrophils % 53.8 % (37.0-80.0); Platelet Count 147 K/mm3 (142-424); Red Blood Count 4.44 M/mm3 (4.20-5.40); Red Cell Distribution Width 15.7 % (11.5-17.5)
[2023-07-16 22:54] LABS: Alanine Aminotransferase 20 U/L (12-78); Albumin Level 3.2 g/dl (3.5-5.0); Albumin/Globulin Ratio 1.1 (1.1-1.8); Alkaline Phosphatase 53 U/L (38-126); Anion Gap 6.4 mEq/L (5-15); Aspartate Amino Transferase 27 U/L (14-36); Bilirubin,Total 0.9 mg/dl (0.2-1.3); Blood Urea Nitrogen 10 mg/dl (7-17); Calcium 8.5 mg/dl (8.4-10.2); Carbon Dioxide 26 mmol/L (22.0-30.0); Creatinine Clearance Estimated 50 mL/min (50-200); Estimated Glomerular Filt Rate 80 ml/min (>60); GFR (African American) 97 ML/MIN (>60); Glucose 95 mg/dl (74-100); Total Protein,Serum 6.2 g/dl (6.3-8.2)
[2023-07-16 22:56] VITALS: BP 133/73; PULSE 66; O2SAT 100
[2023-07-16 23:01] VITALS: BP 138/57; PULSE 63; O2SAT 100
[2023-07-16 23:05] LABS: Activated Partial Thrombo Time 27.6 seconds (22.8-30.6); Prothrombin Time 10.8 seconds (10.1-12.5)
[2023-07-16] MEDS: IOPAMIDOL-370 (76%);100ML BOTTLE 100 ML IV (23:06)
[2023-07-16] MEDS: SODIUM CHLORIDE 0.9% 10ML SYR (RAD ONLY) 10 ML IV (23:06)
[2023-07-16 23:18] LABS: Troponin I < 0.01 ng/ml (0.00-0.034)
--- NOTE | 2023-07-16 23:18 | PC.NURSE ---
on phone with [facility]. patient to be waitlisted for bed.
--- NOTE | 2023-07-16 23:22 | PC.NURSE ---
Paged senior sales consultant for [employer], Dr Bajwa is senior sales consultant. CR
[2023-07-16] MEDS: LACTATED RINGERS 1000ML 1,000 ML 999 ML IV (23:29)
[2023-07-16] MEDS: ASPIRIN 81MG CHEWABLE TABLET 324 MG PO (23:29)
[2023-07-16] MEDS: CLOPIDOGREL 300MG TABLET 300 MG PO (23:29)
--- NOTE | 2023-07-16 23:29 | PC.NURSE ---
[facility] accepted the pt to admit. ARTI notified. SHAILA
[2023-07-16 23:31] VITALS: BP 119/66; PULSE 75; O2SAT 99
--- NOTE | 2023-07-16 23:39 | ECG_ITS ---
APPROVED REPORT Exam: Resting ECG HR:82 bpm ECG Measurements Heart Rate 82 AXES QRSd 101 QRS 27 QT 399 T 16 QTc 438 Conclusion ATRIAL FIBRILLATION INCOMPLETE RIGHT BUNDLE BRANCH BLOCK [90+ ms QRS DURATION, TERMINAL R IN V1/V2, 40+ ms S IN I/aVL/V4/V5/V6] Electronically signed by : CHATO TAYLOR, 07/17/2023 02:04:31
[2023-07-16 23:55] VITALS: BP 119/66; PULSE 75; RESP 20; TEMP 36.7; O2SAT 99
--- NOTE | 2023-07-16 23:59 | PC.NURSE ---
Patient arrived to floor via stretcher from ED at 23:54.
[2023-07-17 00:09] VITALS: PULSE 56
--- NOTE | 2023-07-17 01:07 | PC.NURSE ---
faxed copy of report to luis @ [facility] [place] [facility] [place]. [phone]
[2023-07-17 02:38] LABS: Troponin I < 0.01 ng/ml (0.00-0.034)
[2023-07-17 04:00] VITALS: BP 142/67; PULSE 57; RESP 16; TEMP 36.6; O2SAT 98; BMI 32.8
--- NOTE | 2023-07-17 05:04 | PC.NURSE ---
Addendum entered by Bhumi Orr RN 07/17/23 05:05: time 0010 Original Note: quality assurance monitor final pr-0.20 qrs-0.04 qt-0.44 sinus bradycardia with bbb
--- NOTE | 2023-07-17 05:06 | PC.NURSE ---
0410-field identification specialist pr-0.20 qrs-0.12 qt-0.48 sb with bbb
[2023-07-17 07:04] LABS: Troponin I < 0.01 ng/ml (0.00-0.034)
[2023-07-17 08:00] VITALS: BP 142/72; PULSE 53; PULSE 70; RESP 16; TEMP 36.6; O2SAT 99
--- NOTE | 2023-07-17 08:36 | HMH.PHAINT1 ---
Pharmacy Intervention Comments: Verified patient's home medications using external fill history and discharge summary note from previous hospital stay (was discharged and then readmitted on the same day).
--- NOTE | 2023-07-17 09:12 | MR_ITS ---
FINAL REPORT CLINICAL HISTORY: R/O STROKE. FINDINGS: Multiplanar MR imaging of the brain was performed without contrast. There is mild age-appropriate atrophy. There are scattered foci of increased T2 signal in the cerebral white matter that have a nonspecific appearance but likely represent moderate chronic ischemic/gliotic changes. There is no evidence of intracranial hemorrhage or mass. No abnormal ventricular dilatation is identified. No abnormal extra-axial fluid collection is seen. There is a 3 mm focus of restricted diffusion in the right posterior periventricular region consistent with small, acute lacunar infarct. Small focus of increased signal in the right posterior insula is favored to be artifact rather than true abnormality. The posterior fossa and brainstem are unremarkable. Normal major vessel vascular flow voids are seen. IMPRESSION: Small, acute, posterior ventricular region lacunar infarct. Age-appropriate atrophy and mild chronic ischemic/gliotic changes. These findings were discussed with the patient's nurse, Mikhail at 11:48 AM. Reviewed, Interpreted and Dictated by Cooper Carreon III, MD Transcribed by Qing Mccullough Authenticated and [facility]
--- NOTE | 2023-07-17 09:22 | EXP.HP ---
History of Present Illness *Admission Date: 07/16/23 *Reason for visit:: Weakness *History of present illness: Ms. Millard is an 82-year-old female with a history of hypertension, hypothyroidism, and gout and recent urinary tract infection with E. coli and Enterococcus who was discharged from [facility] yesterday after treatment for dehydration with her UTI. She again presented to [facility] emergency room for evaluation after experiencing an out of body sensation and weakness on her left side. She describes this is sudden onset and was not exertional. She denies any chest pain shortness, shortness of breath, heart palpitations. She was able to contact her family who then had EMS bring her to the emergency room. With evaluation in the emergency room the following was noted: Medical Decision Narrative: Patient with above history last known normal 8 PM. Objectively she has decreased position sense and temperature and pain sensation in her entire left upper extremity subjectively she also had the symptoms in the left lower extremity but does seem to have resolved at this point. She has a normal motor exam bilateral lower extremities. However she did have significant pronator drift in her left upper extremity she was unaware of the fact that she had weakness but she does have objective weakness there. The remainder of her neurologic exam is nonfocal. I have given her an NIH stroke scale of 3 right now. I do presume that this is a an acute CVA. She has been stroke alerted images are being shared with [facility] remainder of her workup is initiated. She does not seem to have any type of contraindication for tPA at the moment. Reassessment 11:30 PM after CTs were performed we discussed with [facility] there is no evidence of an LVO no indication for thrombectomy. Patient no contraindications for tPA we went to have discussion regarding thrombolytics. However at this time on reassessment patient had improvement in her pronator drift. She is also starting to have some improvement in her sensory function but still has persistent sensory deficits in the left upper extremity. At this point I believe her symptoms are significantly improving from historical standpoint prehospital to this point. Had extensive discussion with risk and benefits with the patient and her family and we all agree not to proceed with thrombolytics. I called [facility] coordinators back to inform them of this decision we will load with aspirin and Plavix and she will be admitted here while they have put her on the list for possible transfer. I subsequently spoke with Dr. Bajwa who agreed to admit the patient for further evaluation and management. [facility] Disclaimer: The information contained in this section may have been updated after the patient was seen, as this information can be updated by other users. Medical History (Updated 07/17/23 @ 13:11 by Steff Buck APRN) Hypertension Pancreatitis Gout Vitamin D deficiency Pyelonephritis Hypothyroidism (acquired) Hypokalemia Anxiety MDS (myelodysplastic syndrome) HTN (hypertension) Surgical History History of D&C History of colonoscopy History of cholecystectomy Family History COPD (chronic obstructive pulmonary disease) Cancer Asthma Social History Smoking Status: Never smoker alcohol intake: never current occupational status: retired Travel in the last 8 weeks: None caffeine: Yes Review of Systems Constitutional Constitutional: Denies body ache(s), Denies fever(s), Denies frequent falls, Denies headache(s), Reports poor appetite, Reports lethargy and Reports weakness Eyes Eyes: Denies change in vision ENT Ears, Nose, Mouth, and Throat: Denies dizziness, Denies dysphagia, Denies otalgia, Denies headache(s) and Denies sore throat *Cardiovascular Cardiovascular: Denies chest pain, Denies dyspnea and Denies syncope *Respiratory Respiratory: Reports cough (Cough seems to be better today.) and Denies dyspnea *Gastrointestinal Gastrointestinal: Denies change in stool character, Denies constipation, Denies diarrhea, Denies dyspepsia, Denies dysphagia, Denies heartburn and Denies vomiting *Genitourinary Genitourinary: Denies difficulty voiding and Denies dysuria *Musculoskeletal Musculoskeletal: Reports abnormal gait (Weakness), Reports muscle weakness and Denies myalgias *Neurologic Neurologic: Reports abnormal gait (Weakness), Denies convulsions, Denies dizziness, Denies frequent falls, Denies headache(s), Denies syncope and Reports weakness Meds Home Medications and Allergies Home Medications Medication Instructions Recorded Confirmed Type atenolol 50 mg-chlorthalidone 25 1 tab PO DAILY High Blood Pressure 06/27/18 07/17/23 History mg tablet levothyroxine 150 mcg tablet 150 mcg PO DAILYDM thyroid 11/15/22 07/17/23 History escitalopram oxalate 10 mg tablet 10 mg PO DAILY MOOD 07/15/23 07/17/23 History potassium chloride 10 mEq 10 meq PO DAILY Supplement 07/15/23 07/17/23 History capsule,extended release probenecid 500 mg-colchicine 0.5 1 tab PO DAILY GOUT 07/15/23 07/17/23 History mg tablet cefuroxime axetil 250 mg tablet 250 mg PO BID #14 tabs 07/16/23 07/17/23 Rx New Prescriptions to Start Prescriptions: Allergies Allergy/AdvReac Type Severity Reaction Status Date / Time No Known Allergies Allergy Verified 07/16/23 08:09 Exam Data for Last 24 hours Vital signs and Labs for Last 24 Hours: Temp Pulse Resp BP Pulse Ox O2 Del Method 97.9 F 53 L 16 142/72 H 99 Room Air 07/17/23 08:00 07/17/23 08:00 07/17/23 08:00 07/17/23 08:00 07/17/23 08:00 07/17/23 08:00 Laboratory Results - last 24 hr 07/16/23 21:55: WBC 5.0, RBC 4.44, Hgb 9.7 L, Hct 30.2 L, MCV 68.0 L, MCH 21.8 L, MCHC 32.1, RDW 15.7, Plt Count 147 D, MPV 9.7, Neut % (Auto) 53.8, Lymph % (Auto) 31.1, [place] % (Auto) 8.2, Eos % (Auto) 6.2, Baso % (Auto) 0.7, Neut # (Auto) 2.7, Lymph # (Auto) 1.5, [place] # (Auto) 0.4, Eos # (Auto) 0.3, Baso # (Auto) 0.0, PT 10.8, INR 1.00, APTT 27.6, Sodium 136, Potassium 3.4 L, Chloride 107, Carbon Dioxide 26, Anion Gap 6.4, BUN 10, Creatinine 0.70, Estimated Creat Clear 50, Estimated GFR 80, Est GFR ( Amer) 97, Glucose 95 D, Calcium 8.5, Total Bilirubin 0.9, AST 27, ALT 20, Alkaline Phosphatase 53, Troponin I < 0.01, Total Protein 6.2 L, Albumin 3.2 L, Globulin 3.0, Albumin/Globulin Ratio 1.1 07/17/23 02:10: Troponin I < 0.01 07/17/23 06:01: Troponin I < 0.01 I & O for Last 24 hours: Intake & Output 07/14/23 07/15/23 07/16/23 07/17/23 10:59 11:59 11:59 11:59 Intake Total 999 / 999 Output Total 0 / 0 Balance 999 / 999 Weight 174 lb 1.6 oz Constitutional Constitutional: no acute distress and cooperative *Routine HEENT Exam Head: Present normocephalic and atraumatic Eye: Present EOMI and PERRL; Absent conjunctival icterus, scleral injection or conjunctivae pink ENT: Present mucous membranes moist, oropharynx clear and dentition normal *Routine Neck Exam Neck: Present supple; Absent carotid bruit, lymphadenopathy or thyromegaly Routine Chest/Breast/Axilla Exam Chest wall: Absent tenderness *Routine Respiratory Exam Respiratory: Present CTA bilaterally (Anteriorly and posteriorly) and symmetric chest movement; Absent decreased breath sounds *Routine Cardiovascular Exam Cardiovascular: Present RRR (Monitor showing sinus rhythm) *Routine Abdominal Exam Abdominal: Present soft and normoactive bowel sounds; Absent tenderness or distended *Routine Rectal Exam Rectal:: deferred *Routine Genitalia Exam Genitalia:: deferred *Routine Extremities Exam Extremities: Present pulses intact; Absent edema or calf tenderness *Routine Neurological Exam Neurological: Present alert, oriented X3, moving all extremities, hearing grossly intact and normal speech; Absent sensory deficit, motor deficit, altered mental status, facial asymmetry or tremors Assessment and Plan *Assessment and plan (1) Acute CVA (cerebrovascular accident): Status: Acute Category: Medical Code(s): I63.9 - Cerebral infarction, unspecified (2) E. coli UTI: Status: Acute Category: Medical Code(s): N39.0 - Urinary tract infection, site not specified; B96.20 - Unspecified Escherichia coli [E. coli] as the cause of diseases classified elsewhere (3) Orthostatic hypotension: Status: Acute Category: Medical Code(s): I95.1 - Orthostatic hypotension (4) JACINTO (acute kidney injury): Status: Acute Category: Medical Code(s): N17.9 - Acute kidney failure, unspecified (5) Dehydration: Status: Acute Category: Medical Code(s): E86.0 - Dehydration (6) Hypothyroidism (acquired): Status: Acute Category: Medical Code(s): E03.9 - Hypothyroidism, unspecified (7) Anxiety: Status: Acute Category: Medical Code(s): F41.9 - Anxiety disorder, unspecified (8) Hypokalemia: Status: Resolved Category: Medical Code(s): E87.6 - Hypokalemia (9) Hyponatremia: Status: Acute Category: Medical Code(s): E87.1 - Hypo-osmolality and hyponatremia (10) MDS (myelodysplastic syndrome): Status: Acute Category: Medical Code(s): D46.9 - Myelodysplastic syndrome, unspecified (11) Enterococcus UTI: Status: Acute Category: Medical Code(s): N39.0 - Urinary tract infection, site not specified; B95.2 - Enterococcus as the cause of diseases classified elsewhere (12) Neurological deficit present: Status: Acute Category: Medical Code(s): R29.818 - Other symptoms and signs involving the nervous system Plan Will continue with monitoring. Will also do an MRI today. Dr. Durant entry - Saw patient, agree with above note. MRI shows acute CVA, will continue ASA and Plavix and ask PT and OT to see patient. Continue Rocephin for UTI.
[2023-07-17 12:00] VITALS: PULSE 63
[2023-07-17] MEDS: POTASSIUM CHLORIDE 10MEQ CAPSULE.ER 10 MEQ PO (13:20)
[2023-07-17] MEDS: CEFTRIAXONE SODIUM 1 GM in 0.9 % SODIUM CHLORIDE 50 ML IV (13:20)
--- NOTE | 2023-07-17 14:16 | PC.NURSE ---
Bhargav office called and made aware [facility] has a bed for the patient.
--- NOTE | 2023-07-17 14:44 | HMH.PTEV ---
Physical Therapy Evaluation Rehab PT IP Evaluation Start: 07/17/23 12:54 Freq: ONCE Status: Active Protocol: Document 07/17/23 13:55 MAURI (Rec: 07/17/23 14:44 PHONADYA [id number]) Subjective/History History History Patient presents to [facility] following an Acute CVA that occurred in 07/16/2023 where she reported feeling an out of body sensation and left sided weakness. The patient was discharged from [facility] yesterday morning after a stay for a UTI . The patient's PMH is remarkable for hypertension, hypothyroidism, and gout and recent urinary tract infection with E. coli and Enterococcus . Subjective Subjective The patient is in bed upon arrival with family present. The patient is agreeable to PT and alert and oriented x4. The patient reports that she did have some weakness on her left side last night, but that has almost all gone away. She reports that she is fully independent with all ADLs and lives alone in a house with 2 stairs to enter from the garage. She does not use an AD , but she does have a walker and a cane if needed. New diagnosis of cancer in past 12 No months? Rehab PT IP Eval Objective Appearance Patient Behavior Appropriate,Cooperative, Patient Baseline Patient Orientation Person,Place,Time,Birthday Difficulty following instructions none Speech Pattern Clear,Appropriate,Coherent, Patient Baseline Ambulation Patient Able to Ambulate Yes Ambulation Observation IP General Gait Pattern Observation No Deviations/Normal Ambulation Distance (feet) 80 Ambulation Assistive Device Rolling Walker Ambulation Ability Contact Guard/Hand Hold Balance Ability to Arise Able, uses arms to help Sitting Balance Steady, safe Standing Balance Narrow stance w/o support Dynamic Sitting Balance Ability Normal Dynamic Standing Balance Ability Good Transfers Bed Transfer Ability Supervision/Stand by Sit to Stand Bed Transfer Ability Supervision/Stand by MMT LLE PT MMT WNL RLE PT MMT WNL Rehab PT IP prob,goals,plan Problems Date of Evaluation: 07/17/23 PT IP Problems Bed Mobility,Transfers,Gait, Balance,Self care,Safety Rehab Potential Rehab Potential Good Plan PT Intervention Plan Bed Mobility,Transfers,Gait, Balance,Self care,Safety, Therapeutic Exercise PT Plan Frequency Daily Duration LOS Discharge Goals Bed Transfer Ability Independent Sit to Stand Chair Transfer Ability Independent Ambulation Assistive Device Rolling Walker Ambulation Distance (feet) 150 Discharge Plan PT Discharge Plan Patient presents for initial evaluation and presents below baseline with her current level of function and level of mobility. The patient did not demonstrate overt weakness of her left side compared to the right side, which is consistent with her feeling of the weakness dissipating. The patient did demonstrate some slight unsteadiness during gait. Skilled PT is indicated during this patient's stay. The patient may be most appropriate for a discharge to home with home health, if she has appropriate 24hr assistance from family. The patient was educated on the use of a rolling walker while she continues to feel weak. Eval Complexity Eval Charge Codes 21364 - High Complexity PHYSICIAN CERTIFICATION: I certify the specified therapy services for Nupur Millard are required, authorized, and reviewed every 30 days.
[2023-07-17 16:00] VITALS: BP 155/80; PULSE 54; PULSE 60; RESP 16; TEMP 36.7; O2SAT 100
--- NOTE | 2023-07-17 17:16 | PC.NURSE ---
Pt. likely to be d/c ed in the am with a consult to a neuro dr. patient's family states.
[2023-07-17 20:00] VITALS: BP 124/52; PULSE 102; PULSE 56; RESP 17; TEMP 36.7; O2SAT 93
[2023-07-17] MEDS: ASPIRIN EC 81MG TABLET 81 MG PO (22:17)
[2023-07-17] MEDS: CLOPIDOGREL 75MG TAB 75 MG PO (22:17)
[2023-07-18] VITALS: BP 111/54; PULSE 68; RESP 16; TEMP 37; O2SAT 99
[2023-07-18 00:30] VITALS: PULSE 63
[2023-07-18 04:00] VITALS: BP 124/73; PULSE 64; RESP 16; TEMP 36.7; O2SAT 98; BMI 32.9
[2023-07-18 04:58] VITALS: PULSE 54
[2023-07-18] MEDS: LEVOTHYROXINE 150MCG (0.15MG)TAB 150 MCG PO (06:12)
[2023-07-18 08:00] VITALS: BP 148/65; PULSE 56; PULSE 60; RESP 17; TEMP 36.6; O2SAT 98
--- NOTE | 2023-07-18 08:32 | EXP.ACUTE.PN ---
Subjective *Date: 07/18/23 *Time: 08:56 Interval history: Patient is feeling better this am. She finally slept and has been able to eat and get up and move in the room with her walker. She still feels weak. Denies any pain. Medical Exam Vital signs and Labs for Last 24 Hours: Vital Signs Temp Pulse Pulse Resp BP Pulse Ox O2 Del Method 07/18/23 08:00 Room Air 07/18/23 07:00 Room Air 07/18/23 05:00 Room Air 07/18/23 04:58 54 L 07/18/23 04:00 98.1 F 64 16 124/73 98 Room Air 07/18/23 03:00 Room Air 07/18/23 01:00 Room Air 07/18/23 00:30 63 07/18/23 00:00 98.6 F 68 16 111/54 L 99 Room Air 07/17/23 23:00 Room Air 07/17/23 21:00 Room Air 07/17/23 20:00 Room Air 07/17/23 20:00 56 L 07/17/23 20:00 98.1 F 102 H 17 124/52 L 93 L Room Air 07/17/23 18:24 Room Air 07/17/23 16:00 98.1 F 54 L 16 155/80 H 100 Room Air 07/17/23 16:00 60 07/17/23 15:49 Room Air 07/17/23 14:27 Room Air 07/17/23 12:24 Room Air 07/17/23 12:00 63 Intake and Output 07/17/23 07/18/23 07/18/23 19:59 03:59 11:59 Intake Total 775 / 1495 720 / 1495 Output Total 0 / 0 0 / 0 0 / 0 Balance 775 / 1495 0 / 1495 720 / 1495 Intake: Intake, Oral Amount 725 / 1445 720 / 1445 Intake, Total IV Amount 50 / 50 Ceftriaxone Sodium 1 gm In 0.9 50 / 50 % Sodium Chloride 50 ml @ 100 mls/hr IV Q24H [facility] Rx#:[id number] Output: Output, Urine Amount 0 / 0 0 / 0 0 / 0 Other: Number of Unmeasured Voids 1 1 1 Number of Bowel Movements 1 Weight 174 lb 9.698 oz Patient Weight 07/18/23 11:59 Weight 174 lb 9.698 oz I & O for Labs for Last 24 Hours: Intake & Output 07/15/23 07/16/23 07/17/23 07/18/23 11:59 11:59 11:59 11:59 Intake Total 999 / 999 1495 / 1495 Output Total 0 / 0 0 / 0 Balance 999 / 999 1495 / 1495 Weight 174 lb 1.6 oz 174 lb 9.698 oz Constitutional: Present no acute distress Respiratory: Present CTA bilaterally and normal respiratory effort Cardiac: Present Reg Rate and Rhythm GI: Present soft and normal bowel sounds; Absent distention or tenderness Extremities: Present normal inspection and full ROM; Absent edema Skin: Present intact; Absent erythema Neuro: Present Grossly Intact, alert, awake, oriented x 3 and moves all extremities Assessment and Plan *Assessment and plan (1) Acute cerebrovascular accident (CVA) due to occlusion of right middle cerebral artery: Status: Acute Category: Medical Code(s): I63.511 - Cerebral infarction due to unspecified occlusion or stenosis of right middle cerebral artery (2) E. coli UTI: Status: Acute Category: Medical Code(s): N39.0 - Urinary tract infection, site not specified; B96.20 - Unspecified Escherichia coli [E. coli] as the cause of diseases classified elsewhere (3) Orthostatic hypotension: Status: Acute Category: Medical Code(s): I95.1 - Orthostatic hypotension (4) JACINTO (acute kidney injury): Status: Acute Category: Medical Code(s): N17.9 - Acute kidney failure, unspecified (5) Dehydration: Status: Acute Category: Medical Code(s): E86.0 - Dehydration (6) Hypothyroidism (acquired): Status: Acute Category: Medical Code(s): E03.9 - Hypothyroidism, unspecified (7) Anxiety: Status: Acute Category: Medical Code(s): F41.9 - Anxiety disorder, unspecified (8) Hypokalemia: Status: Resolved Category: Medical Code(s): E87.6 - Hypokalemia (9) Hyponatremia: Status: Acute Category: Medical Code(s): E87.1 - Hypo-osmolality and hyponatremia (10) MDS (myelodysplastic syndrome): Status: Acute Category: Medical Code(s): D46.9 - Myelodysplastic syndrome, unspecified (11) Enterococcus UTI: Status: Acute Category: Medical Code(s): N39.0 - Urinary tract infection, site not specified; B95.2 - Enterococcus as the cause of diseases classified elsewhere (12) Neurological deficit present: Status: Acute Category: Medical Code(s): R29.818 - Other symptoms and signs involving the nervous system Plan Will continue ASA and Plavix. PT/OT felt the patient could go home with home health. Continue Rocephin for UTI. Will discuss disposition with Dr. Durant. Dr. Durant entry - Saw patient, agree with above note. OK to discharge home with ASA, Plavix and Statin. Plan outpatient f/u next week, OK for home health.
[2023-07-18] MEDS: CITALOPRAM 20MG TABLET 20 MG PO (09:02)
[2023-07-18] MEDS: CLOPIDOGREL 75MG TAB 75 MG PO (09:02)
[2023-07-18] MEDS: ASPIRIN EC 81MG TABLET 81 MG PO (09:03)
[2023-07-18] MEDS: POTASSIUM CHLORIDE 10MEQ CAPSULE.ER 10 MEQ PO (09:03)
--- NOTE | 2023-07-18 09:16 | SW/DCPLANNER ---
Addendum entered by Alisson Quintana 07/18/23 12:15: Maty w/ [facility] stated that services will begin this week for this patient. Original Note: I spoke w/ this patient and her family regarding plans once medically stable for discharge. PT/OT evaluated patient and recommended returning home w/ home health services. Patient is agreeable to home health services and prefers to use [facility]. Patient information/order will be faxed to [facility] this AM. Patient will discharge home today.
--- NOTE | 2023-07-19 14:09 | CARE MANAGER ---
Contacted patient related to hospital discharge. Patient had a reaction to an antibiotic and Dr. Durant is aware. She is doing much better and denies questions or concerns. She is aware of follow up appointments. ARTI Johnson
--- NOTE | 2023-07-22 22:32 | EXP.DC.SUM ---
General Admission date:: 07/16/23 Discharge date: 07/18/23 HPI HPI HPI: Ms. Millard is an 82-year-old female with a history of hypertension, hypothyroidism, and gout and recent urinary tract infection with E. coli and Enterococcus who was discharged from [facility] yesterday after treatment for dehydration with her UTI. She again presented to [facility] emergency room for evaluation after experiencing an out of body sensation and weakness on her left side. She describes this is sudden onset and was not exertional. She denies any chest pain shortness, shortness of breath, heart palpitations. She was able to contact her family who then had EMS bring her to the emergency room. With evaluation in the emergency room the following was noted: Medical Decision Narrative: Patient with above history last known normal 8 PM. Objectively she has decreased position sense and temperature and pain sensation in her entire left upper extremity subjectively she also had the symptoms in the left lower extremity but does seem to have resolved at this point. She has a normal motor exam bilateral lower extremities. However she did have significant pronator drift in her left upper extremity she was unaware of the fact that she had weakness but she does have objective weakness there. The remainder of her neurologic exam is nonfocal. I have given her an NIH stroke scale of 3 right now. I do presume that this is a an acute CVA. She has been stroke alerted images are being shared with [facility] remainder of her workup is initiated. She does not seem to have any type of contraindication for tPA at the moment. Reassessment 11:30 PM after CTs were performed we discussed with [facility] there is no evidence of an LVO no indication for thrombectomy. Patient no contraindications for tPA we went to have discussion regarding thrombolytics. However at this time on reassessment patient had improvement in her pronator drift. She is also starting to have some improvement in her sensory function but still has persistent sensory deficits in the left upper extremity. At this point I believe her symptoms are significantly improving from historical standpoint prehospital to this point. Had extensive discussion with risk and benefits with the patient and her family and we all agree not to proceed with thrombolytics. I called [facility] coordinators back to inform them of this decision we will load with aspirin and Plavix and she will be admitted here while they have put her on the list for possible transfer. I subsequently spoke with Dr. Bajwa who agreed to admit the patient for further evaluation and management. Hospital Course Hospital Course Hospital Course: The patient was admitted and an MRI was ordered. It showed an acute CVA. The patient was continued on aspirin and Plavix and PT and OT were ordered for evaluation. She was started on Rocephin for UTI. By 07/18/2023, she was feeling much better. She had finally slept and was able to eat and get up and move around the room with her walker. She still felt weak. PT and OT felt she could go home with home health. She was stable to be discharged home on aspirin, Plavix, and a statin. She will follow-up in the office with Dr. Durant. Exam Data for Last 24 hours Vital signs and Labs for Last 24 Hours: Temp Pulse Resp BP Pulse Ox O2 Del Method 97.9 F 56 L 17 148/65 H 98 Room Air 07/18/23 08:00 07/18/23 08:00 07/18/23 08:00 07/18/23 08:00 07/18/23 08:00 07/18/23 09:00 Narrative: Constitutional Constitutional: no acute distress and cooperative *Routine HEENT Exam Head: Present normocephalic and atraumatic Eye: Present EOMI and PERRL; Absent conjunctival icterus, scleral injection or conjunctivae pink ENT: Present mucous membranes moist, oropharynx clear and dentition normal *Routine Neck Exam Neck: Present supple; Absent carotid bruit, lymphadenopathy or thyromegaly Routine Chest/Breast/Axilla Exam Chest wall: Absent tenderness *Routine Respiratory Exam Respiratory: Present CTA bilaterally (Anteriorly and posteriorly) and symmetric chest movement; Absent decreased breath sounds *Routine Cardiovascular Exam Cardiovascular: Present RRR (Monitor showing sinus rhythm) *Routine Abdominal Exam Abdominal: Present soft and normoactive bowel sounds; Absent tenderness or distended *Routine Rectal Exam Rectal:: deferred *Routine Genitalia Exam Genitalia:: deferred *Routine Extremities Exam Extremities: Present pulses intact; Absent edema or calf tenderness *Routine Neurological Exam Neurological: Present alert, oriented X3, moving all extremities, hearing grossly intact and normal speech; Absent sensory deficit, motor deficit, altered mental status, facial asymmetry or tremors DS: Diagnosis Discharge Diagnosis (1) Acute cerebrovascular accident (CVA) due to occlusion of right middle cerebral artery: Status: Acute Code(s): I63.511 - Cerebral infarction due to unspecified occlusion or stenosis of right middle cerebral artery (2) E. coli UTI: Status: Acute Code(s): N39.0 - Urinary tract infection, site not specified; B96.20 - Unspecified Escherichia coli [E. coli] as the cause of diseases classified elsewhere (3) Orthostatic hypotension: Status: Acute Code(s): I95.1 - Orthostatic hypotension (4) JACINTO (acute kidney injury): Status: Acute Code(s): N17.9 - Acute kidney failure, unspecified (5) Dehydration: Status: Acute Code(s): E86.0 - Dehydration (6) Hypothyroidism (acquired): Status: Acute Code(s): E03.9 - Hypothyroidism, unspecified (7) Anxiety: Status: Acute Code(s): F41.9 - Anxiety disorder, unspecified (8) Hypokalemia: Status: Resolved Code(s): E87.6 - Hypokalemia (9) Hyponatremia: Status: Acute Code(s): E87.1 - Hypo-osmolality and hyponatremia (10) MDS (myelodysplastic syndrome): Status: Acute Code(s): D46.9 - Myelodysplastic syndrome, unspecified (11) Enterococcus UTI: Status: Acute Code(s): N39.0 - Urinary tract infection, site not specified; B95.2 - Enterococcus as the cause of diseases classified elsewhere (12) Neurological deficit present: Status: Acute Code(s): R29.818 - Other symptoms and signs involving the nervous system Meds Home Medications and Allergies Home Medications Medication Instructions Recorded Confirmed Type atenolol 50 mg-chlorthalidone 25 1 tab PO DAILY 06/27/18 07/17/23 History mg tablet levothyroxine 150 mcg tablet 150 mcg PO DAILYDM 11/15/22 07/17/23 History escitalopram oxalate 10 mg tablet 10 mg PO DAILY 07/15/23 07/17/23 History potassium chloride 10 mEq 10 meq PO DAILY 07/15/23 07/17/23 History capsule,extended release probenecid 500 mg-colchicine 0.5 1 tab PO DAILY 07/15/23 07/17/23 History mg tablet cefuroxime axetil 250 mg tablet 250 mg PO BID #14 tabs 07/16/23 07/17/23 Rx aspirin 81 mg tablet,delayed 81 mg PO DAILY #0 tabs 07/18/23 Rx release atorvastatin 80 mg tablet 80 mg PO HS #30 tabs 07/18/23 Rx clopidogrel 75 mg tablet 75 mg PO DAILY #30 tabs 07/18/23 Rx New Prescriptions to Start Prescriptions: atorvastatin Willie Durant clopidogrel Willie Durant Allergies Allergy/AdvReac Type Severity Reaction Status Date / Time No Known Allergies Allergy Verified 07/16/23 08:09 Discharge Plan Disposition Patient Disposition: Home Health Service Condition: Fair Discharge Order Discharge Orders: Discharge Order (Routine); Ordered 07/18/23 Ordered By: Willie Durant Follow up Plan Follow up with: Willie Durant MD [Primary Care Provider] - 07/24/23 10:45 am (Wants an appt. around 10:30 AM) Prescriptions/Medication Reconciliation: New clopidogrel 75 mg Tablet 75 mg PO DAILY Qty: 30 0RF aspirin 81 mg Tablet,Delayed Release (Dr/Ec) 81 mg PO DAILY Qty: 0 0RF atorvastatin 80 mg tablet 80 mg PO HS Qty: 30 0RF Continued atenolol-chlorthalidone 50-25 mg tablet 1 tab PO DAILY levothyroxine 150 mcg tablet 150 mcg PO DAILYDM Patient Comments: TAKE 1 TABLET BY MOUTH ONCE DAILY potassium chloride 10 mEq capsule, extended release 10 meq PO DAILY Patient Comments: TAKE 1 CAPSULE BY MOUTH ONCE DAILY FOR 90 DAYS probenecid-colchicine 500-0.5 mg tablet 1 tab PO DAILY Patient Comments: TAKE 1 TABLET BY MOUTH ONCE DAILY escitalopram oxalate 10 mg tablet 10 mg PO DAILY Patient Comments: TAKE 1 TABLET BY MOUTH ONCE DAILY FOR 90 DAYS cefuroxime axetil 250 mg tablet 250 mg PO BID Qty: 14 0RF Problem Reconciliation Problems Reviewed?: Yes Patient Discharge Instructions ACTIVITY: Continue current activity DIET: continue same diet Patient Instructions: Ischemic Stroke Providers Primary Care Provider: Willie Durant Admit Provider: Willie Durant Attending Provider: Willie Durant
== END 2023-07-18 09:42 | disposition home health service (06) | DRG 65 ==
LOC: ER 23:32 → 2ND 23:46
PROVIDERS: Admitting Provider Family Medicine; Emergency Provider Student in an Organized Health Care Education/Training Program; PCP Family Medicine; Visit Provider Family Medicine
DX: I63.511 Cerebral infarction due to unspecified occlusion or stenosis of right middle cerebral artery (principal); E87.1 Hypo-osmolality and hyponatremia; N39.0 Urinary tract infection, site not specified; F41.9 Anxiety disorder, unspecified; I10 Essential (primary) hypertension; D46.9 Myelodysplastic syndrome, unspecified; M10.9 Gout, unspecified; I95.9 Hypotension, unspecified; E87.6 Hypokalemia; I95.1 Orthostatic hypotension; E86.0 Dehydration; B96.20 Unspecified Escherichia coli [E. coli] as the cause of diseases classified elsewhere
CPT/HCPCS: 36415; 70450; 70496; 70498; 70551; 71045; 71046; 80048; 80053; 81001; 83605; 83735; 83880; 84100; 84443; 84484; 85007; 85025; 85610; 85730; 87086; 87636; 93005; 97163; 97165; 99285; 99291; G0378; J0696; Q9967

== ENCOUNTER 2024-02-28 12:07 | Emergency (ER) | payer MEDICARE, SELFPAY ==
[2024-02-28 12:08] VITALS: BP 153/71; PULSE 60; RESP 16; TEMP 36.6; O2SAT 98; BMI 30.2
--- NOTE | 2024-02-28 12:23 | ECG_ITS ---
APPROVED REPORT Exam: Resting ECG HR:54 bpm ECG Measurements Heart Rate 54 AXES CO 233 P 13 QRSd 109 QRS 28 QT 424 T 50 QTc 409 Conclusion SINUS BRADYCARDIA WITH FIRST DEGREE AV BLOCK INCOMPLETE RIGHT BUNDLE BRANCH BLOCK [90+ ms QRS DURATION, TERMINAL R IN V1/V2, 40+ ms S IN I/aVL/V4/V5/V6] ABNORMAL ECG Electronically signed by : SHAINA PERALTA, 02/28/2024 15:06:36
[2024-02-28] MEDS: OXYMETAZOLINE NASAL SPRAY 0.05% 15ML 5 ML NS (12:25)
--- NOTE | 2024-02-28 12:34 | ED_ITS ---
Discharge Plan Disposition Patient Disposition: Home, Self-Care Chief Complaint: Epistaxis Prescriptions Prescriptions: No Action atenolol-chlorthalidone 50-25 mg tablet 1 tab PO DAILY levothyroxine 150 mcg tablet 150 mcg PO DAILYDM Patient Comments: TAKE 1 TABLET BY MOUTH ONCE DAILY potassium chloride 10 mEq capsule, extended release 10 meq PO DAILY Patient Comments: TAKE 1 CAPSULE BY MOUTH ONCE DAILY FOR 90 DAYS probenecid-colchicine 500-0.5 mg tablet 1 tab PO DAILY Patient Comments: TAKE 1 TABLET BY MOUTH ONCE DAILY escitalopram oxalate 10 mg tablet 10 mg PO DAILY Patient Comments: TAKE 1 TABLET BY MOUTH ONCE DAILY FOR 90 DAYS cefuroxime axetil 250 mg tablet 250 mg PO BID Qty: 14 0RF clopidogrel 75 mg Tablet 75 mg PO DAILY Qty: 30 0RF aspirin 81 mg Tablet,Delayed Release (Dr/Ec) 81 mg PO DAILY Qty: 0 0RF atorvastatin 80 mg tablet 80 mg PO HS Qty: 30 0RF Referrals Follow up/Referrals: Willie Durant MD [Primary Care Provider] - See instructions Activity Restrictions/Add. Instructions Additional Instructions/Restrictions: Please apply your oxymetazoline small volume to your left nose twice a day for the next 3 days. If your nose begins to bleed again then please blow your nose, put oxymetazoline in and hold pressure for 15 minutes as discussed. If it is still bleeding present here for continued evaluation. Clinical Impressions Clinical Impression: Epistaxis Instructions Patient Instructions: DI for Nosebleed Print Language Print Language: Frisian Discharge ED Provider: Blu Galvan General Adult HPI General Chief complaint: Epistaxis Stated complaint: nose bleed Time Seen by Provider: 02/28/24 12:21 History of Present Illness HPI narrative: Patient is 83-year-old female with past medical history of previous CVA on anticoagulation who presents emergency department for evaluation of nosebleed. Onset was acute, 30 minutes prior to arrival, left-sided, due to persistent symptoms she presents here for continued evaluation. Related Data Home Medications ?Medication ?Instructions ?Recorded ?Confirmed atenolol 50 mg-chlorthalidone 25 1 tab PO DAILY 06/27/18 07/17/23 mg tablet levothyroxine 150 mcg tablet 150 mcg PO DAILYDM 11/15/22 07/17/23 escitalopram oxalate 10 mg tablet 10 mg PO DAILY 07/15/23 07/17/23 potassium chloride 10 mEq 10 meq PO DAILY 07/15/23 07/17/23 capsule,extended release probenecid 500 mg-colchicine 0.5 1 tab PO DAILY 07/15/23 07/17/23 mg tablet Previous Rx's ?Medication ?Instructions ?Recorded cefuroxime axetil 250 mg tablet 250 mg PO BID #14 tabs 07/16/23 aspirin 81 mg tablet,delayed 81 mg PO DAILY #0 tabs 07/18/23 release atorvastatin 80 mg tablet 80 mg PO HS #30 tabs 07/18/23 clopidogrel 75 mg tablet 75 mg PO DAILY #30 tabs 07/18/23 Allergies Allergy/AdvReac Type Severity Reaction Status Date / Time No Known Allergies Allergy Verified 07/16/23 08:09 [facility] Disclaimer: The information contained in this section may have been updated after the patient was seen, as this information can be updated by other users. Medical History (Updated 02/28/24 @ 12:47 by Blu Galvan MD) Hypertension Pancreatitis Gout Vitamin D deficiency Pyelonephritis Hypothyroidism (acquired) Hypokalemia Anxiety MDS (myelodysplastic syndrome) HTN (hypertension) Surgical History History of D&C History of colonoscopy History of cholecystectomy Family History COPD (chronic obstructive pulmonary disease) Cancer Asthma Social History Smoking Status: Never smoker alcohol intake: never current occupational status: retired Travel in the last 8 weeks: None caffeine: Yes Other Medical History Have you received the Flu Vaccine for this season: No Have you received the Pneumonia Vaccine: No ROS Obtained: Yes Systems reviewed as appropriate & no additional complaints except as documented Physical Exam General General appearance: alert and in no apparent distress Head Head exam: atraumatic and normocephalic Eye Eye exam: Present PERRL ENT ENT exam: Present other (Blood from the left nare and nasal septum) Neck Neck exam: Present normal inspection Chest Chest inspection: Present normal inspection and symmetric chest wall rise Respiratory Respiratory exam: Absent respiratory distress Cardiovascular Cardiovascular exam: Present regular rate and normal rhythm Extremities Exam Extremities exam: Present normal inspection Neurological Exam Neurological exam: Present alert Psychiatric Psychiatric exam: Present normal affect Skin Skin exam: Present warm and dry Medical Decision Making Medical Records Screening: Per USPSTF and CDC recommendations, given the prevalence of disease in our region, it is our hospital?s policy to screen for HIV and viral Hepatitis for all patients aged 18 and over and those with ongoing risk factors. Chai Inquiry Pt receiving controlled substance: No Vital Signs: 02/28/24 12:08 Temperature 97.8 F Temperature Source Oral Pulse Rate [Right] 60 Respiratory Rate 16 Blood Pressure [Right Arm] 153/71 H Blood Pressure Mean [Right Arm] 98 02 Sat by Pulse Oximetry 98 Oxygen Delivery Method Room Air Orders (Tests/Meds): ED MEDICATIONS Discontinued Medications Generic Name Dose Route Start Last Admin Trade Name Freq PRN Reason Stop Dose Admin Oxymetazoline HCl 5 ml 02/28/24 12:22 02/28/24 12:25 Oxymetazoline Nasal [place] 0.05% 15ml NS 02/28/24 12:23 5 ml ONCE ONE Administration ORDERS Category Date Time Status HIV (1&2) Antibody Rapid Stat Lab 02/28/24 12:35 Ordered Hep C Ab with Reflex to RNA Stat Lab 02/28/24 12:35 Ordered ECG Data Tracing #1: EKG independently inter by me rate is 54, rhythm is regular, axis is normal, right bundle branch block, no ST elevation in anatomical contiguous leads, QTc 409. Medical Decision Narrative: In summary patient is a an 83-year-old female with past medical history described above presents emergency department for evaluation of epistaxis. Patient is hemodynamically stable nontoxic-appearing arrival, afebrile. Oxymetazoline will be sprayed to the nose and pressure will be applied for 15 minutes patient be reassessed. Upon repeat evaluation patient had resolution of nosebleeding. Given this patient is appropriate for discharge at this time was given multiple return precautions verbalized understanding. Critical Care Critical Care Time Critical Care Time: No
--- NOTE | 2024-02-28 12:43 | PC.NURSE ---
Dr. Galvan at bedside
[2024-02-28 12:45] VITALS: BP 145/84; PULSE 56; O2SAT 97
[2024-02-28 12:55] VITALS: BP 145/84; PULSE 75; RESP 16; TEMP 36.7; O2SAT 96
--- NOTE | 2024-02-28 12:55 | PC.NURSE ---
PTS NOSE IS NO LONGER BLEEDING.
== END 2024-02-28 12:56 | disposition home or self-care (01) ==
PROVIDERS: Emergency Provider Emergency Medicine; PCP Family Medicine
DX: R04.0 Epistaxis (principal)
CPT/HCPCS: 93005; 99283

== ENCOUNTER 2024-02-29 13:47 | Outpatient (POV) | payer MEDICARE, SELFPAY ==
[2024-02-29 14:20] VITALS: BP 141/60; PULSE 51; RESP 18; O2SAT 96; BMI 30.4
--- NOTE | 2024-02-29 14:34 | EXP.PAIN.OV ---
HPI Data of Consult Patient: new to practice Consult date: 02/29/24 Requesting Physician: Patricia Major APRN Primary Care Provider: Willie Durant MD Consult Narrative Reason for consult: Low back pain, bilateral leg pain History of present illness: Ms. Millard is a 83 year old female Zentz today as a new patient. She is a referral from Dr. Durant's office. Today she rates her pain a 9 out of 10. Patient states that she has been having chronic pain across her low back that does radiate down into her lower extremities that has been going on since 2019 however it is been intermittent. Patient denies any specific injury or trauma that initially started the symptoms. She does state that she would just do more conservative measures such as Tylenol, heat and ice or topicals but she recently went to [place] and that it did really seem to flareup her overall pain. She does state the pain interferes with her ability to perform activities of daily living such as cooking and cleaning. Patient states that the pain is worse with increased walking or activity and does describe it as an aching, throbbing sensation with numbness and tingling into her extremities. She states that certain positions cause different sensations. Patient states that she believes that the trip to [place] was just made worse with the roads and streets all being uneven over in that area. Patient has tried at home stretching exercise for longer than 12 weeks. Patient has tried physical therapy but it made it worse. She is interested in any help we may be able to provide. Patient is currently on Eliquis by Dr. uYn at [facility]. She states she was put on this in July from a stroke and A-fib. She states overall everything is going well from this and she has not had any additional problems. Her Chai has been reviewed and is appropriate. CC: Patricia Major APRN [facility] Disclaimer: The information contained in this section may have been updated after the patient was seen, as this information can be updated by other users. Medical History (Updated 02/29/24 @ 14:37 by Patricia Major APRN) Hypertension Pancreatitis Gout Vitamin D deficiency Pyelonephritis Hypothyroidism (acquired) Hypokalemia Anxiety MDS (myelodysplastic syndrome) HTN (hypertension) Surgical History History of D&C History of colonoscopy History of cholecystectomy Family History COPD (chronic obstructive pulmonary disease) Cancer Asthma Social History (Updated 02/29/24 @ 14:21 by Krupa Arora RN) Smoking Status: Never smoker alcohol intake: never current occupational status: retired Travel in the last 8 weeks: None caffeine: Yes Review of Systems Review of Systems Review of systems:: pertinent systems reviewed and negative unless documented below Review of systems (narrative): Review of Systems: General: No recent weight changes, no fever, no sleep disturbances Respiratory: No cough, no shortness of air, no recurring pulmonary infections Cardiovascular/peripheral vascular: No chest pain, no palpitations, no edema, no shortness of breath Gastrointestinal: No new onset incontinence, normal bowel movements reported Genitourinary: No new onset incontinence Musculoskeletal: Low back pain, leg pain Psychiatric: [Normal mood/affect] Neurological: [Denies weakness in extremities], [denies balance issues] Meds Home Medications and Allergies Home Medications ?Medication ?Instructions ?Recorded ?Confirmed ?Type atenolol 50 mg-chlorthalidone 25 1 tab PO DAILY 06/27/18 02/29/24 History mg tablet levothyroxine 150 mcg tablet 150 mcg PO DAILYDM 11/15/22 02/29/24 History escitalopram oxalate 10 mg tablet 10 mg PO DAILY 07/15/23 02/29/24 History potassium chloride 10 mEq 10 meq PO DAILY 07/15/23 02/29/24 History capsule,extended release probenecid 500 mg-colchicine 0.5 1 tab PO DAILY 07/15/23 02/29/24 History mg tablet cefuroxime axetil 250 mg tablet 250 mg PO BID #14 tabs 07/16/23 02/29/24 Rx aspirin 81 mg tablet,delayed 81 mg PO DAILY #0 tabs 07/18/23 02/29/24 Rx release atorvastatin 80 mg tablet 80 mg PO HS #30 tabs 07/18/23 02/29/24 Rx clopidogrel 75 mg tablet 75 mg PO DAILY #30 tabs 07/18/23 02/29/24 Rx New Prescriptions to Start Prescriptions: Allergies Allergy/AdvReac Type Severity Reaction Status Date / Time No Known Allergies Allergy Verified 07/16/23 08:09 Objective Vital signs: Pulse Resp BP Pulse Ox O2 Del Method 51 L 18 141/60 H 96 Room Air 02/29/24 14:20 02/29/24 14:20 02/29/24 14:20 02/29/24 14:20 02/29/24 14:20 Narrative: Physical Exam: General: Alert and oriented x3, no acute distress, pleasant and cooperative Lungs: Respirations even and unlabored, symmetrical chest expansion Eyes: PERRL Musculoskeletal: Flexion and extension of lumbar [spine] somewhat guarded secondary to pain, [antalgic gait noted] Neurological: Speech clear, no gross sensory deficit Additional findings Additional findings: FINDINGS: There is normal alignment. The spinal cord ends at the T12-L1 level. There is multilevel lower thoracic and lumbar spondylosis as detailed below T10-T11: Degenerative disc disease. T11-T12: Degenerative disc disease with bulging disc with canal stenosis. There may be a small central disc protrusion. This level is only imaged in the sagittal plane. There appears to be some impingement upon the anterior and central aspect of the cord with mild cord flattening. T12-L1: Degenerative disc disease with type 1 endplate changes anteriorly. There is bulging disc with facet ligamentum hypertrophy with bilateral lateral recess narrowing L1-L2: Degenerative disc disease with anterior osteophytes and 2 endplate changes with bulging disc along with facet and ligamentum hypertrophy causing right lateral recess narrowing and moderate to severe right-sided foraminal narrowing. There is canal stenosis. L2-L3: Degenerate disc disease with bulging disc with facet and ligamentum hypertrophy with bilateral lateral recess narrowing and moderate to severe bilateral foraminal narrowing with canal stenosis. The canal measures 8 mm. L3-L4: Degenerate disc disease with bulging disc along with facet and ligamentum hypertrophy with moderate to severe bilateral lateral recess and foraminal narrowing. L4-5: Degenerate disc disease with bulging disc. There is 4 mm anterolisthesis of L4 with severe facet and ligamentum hypertrophy with severe bilateral lateral recess and foraminal narrowing and severe canal stenosis with canal measuring 6 mm in AP dimension. L5-S1: Bulging disc with facet ligamentum hypertrophy with mild bilateral foraminal narrowing left greater than right. IMPRESSION: Abnormal MRI of the lumbar spine. There is multilevel lumbar spondylosis with bulging disc along with facet and ligamentum hypertrophy and endplate spurring with resultant varying degrees lateral recess and foraminal narrowing and canal stenosis greatest at the L4-5 level. Please see above for detailed description at each level. Dictated by: Jose Francisco Arenas MD 01/17/2020 12:23 Jose Francisco Arenas MD in OV 01/17/2020 12:23 Assessment and Plan *Assessment and plan (1) Degenerative disc disease, lumbar: Status: Acute Category: Medical Code(s): M51.369 - Other intervertebral disc degeneration, lumbar region without mention of lumbar back pain or lower extremity pain (2) Lumbar radiculopathy: Status: Acute Category: Medical Code(s): M54.16 - Radiculopathy, lumbar region (3) Spinal stenosis, lumbar region with neurogenic claudication: Status: Acute Category: Medical Code(s): M48.062 - Spinal stenosis, lumbar region with neurogenic claudication Plan Patient is experiencing significant pain in her low back that does radiate down into her lower extremities with numbness and tingling. Patient did have limited range of motion of her lumbar spine during today's exam. I did review over with the patient her previous imaging from 2019 that did show significant narrowing multilevel however L4-L5 looked to be the worst area. I did discuss with the patient that I do believe she would benefit from a lumbar epidural steroid injection. Risk and benefits were discussed with the patient and she would like to proceed forward with this plan of care. Patient has tried and failed conservative therapy including continued at home stretching exercise for longer than 12 weeks. Patient has also tried physical therapy. Patient will be ordered a compounded cream and scheduled for a LESI L4-L5 under fluoroscopy. Patient has been instructed to contact the clinic with any concerns before the next appointment. Dr. Murphy has reviewed this note and agrees with this plan of care. This note was dictated using voice recognition software and make contain errors or omissions. All injections are used with Lidocaine or Bupivacaine and Depo Medrol.
== END 2024-02-29 23:59 | disposition home or self-care (01) ==
LOC: SC.PAIN 13:47
PROVIDERS: PCP Family Medicine; Visit Provider Nurse Practitioner Family
DX: M48.062 Spinal stenosis, lumbar region with neurogenic claudication; M51.16 Intervertebral disc disorders with radiculopathy, lumbar region; Z73.89 Other problems related to life management difficulty; Z79.01 Long term (current) use of anticoagulants
CPT/HCPCS: 99202; G0463

== ENCOUNTER 2024-04-12 13:50 | Emergency (ER) | payer MEDICARE, SELFPAY ==
[2024-04-12] VITALS (10 sets, daily range): BP systolic 99–198; BP diastolic 51–90; PULSE 52–62; RESP 16–18; TEMP 36.6–36.7; O2SAT 96–99; BMI 30.6
--- NOTE | 2024-04-12 14:03 | ED_ITS ---
Discharge Plan Disposition Patient Disposition: Home, Self-Care Prescriptions Prescriptions: No Action atenolol-chlorthalidone 50-25 mg tablet 1 tab PO DAILY levothyroxine 150 mcg tablet 150 mcg PO DAILYDM Patient Comments: TAKE 1 TABLET BY MOUTH ONCE DAILY potassium chloride 10 mEq capsule, extended release 10 meq PO DAILY Patient Comments: TAKE 1 CAPSULE BY MOUTH ONCE DAILY FOR 90 DAYS probenecid-colchicine 500-0.5 mg tablet 1 tab PO DAILY Patient Comments: TAKE 1 TABLET BY MOUTH ONCE DAILY escitalopram oxalate 10 mg tablet 10 mg PO DAILY Patient Comments: TAKE 1 TABLET BY MOUTH ONCE DAILY FOR 90 DAYS cefuroxime axetil 250 mg tablet 250 mg PO BID Qty: 14 0RF clopidogrel 75 mg Tablet 75 mg PO DAILY Qty: 30 0RF aspirin 81 mg Tablet,Delayed Release (Dr/Ec) 81 mg PO DAILY Qty: 0 0RF atorvastatin 80 mg tablet 80 mg PO HS Qty: 30 0RF Referrals Follow up/Referrals: Farrukh Jenkins MD [Physician] - See instructions Willie Durant MD [Primary Care Provider] - See instructions Activity Restrictions/Add. Instructions Additional Instructions/Restrictions: Keep your anterior nasal packing and for 3 to 5 days. I recommend you call first thing in the morning on Sunday to Dr. Jenkins's office/[facility] office. And I recommend that you follow-up with them if possible otherwise you may return to the emergency department to have your packing removed or your primary care doctor. Clinical Impressions Clinical Impression: Acute anterior epistaxis Instructions Patient Instructions: DI for Nosebleed Print Language Print Language: Nicaraguan Discharge ED Provider: Tulio Ibarra General Adult HPI <Tulio Ibarra MD - Last Filed: 04/12/24 15:37> General Chief complaint: Epistaxis Stated complaint: nose bleed Time Seen by Provider: 04/12/24 13:57 History of Present Illness HPI narrative: Patient is a 83-year-old past medical history of anxiety, hypertension, A-fib, CVA on Eliquis presenting for epistaxis. Patient said around 1 PM today she started having bleeding from her left nostril that has not stopped with Afrin and holding her nose. She has had nosebleeds in the past and has been using Afrin intermittently when she has these episodes. She was unable to make this 1 stop prompting the visit to the emergency department today. Patient said that she is having some dizziness that started just prior to arrival. Of note patient took her Eliquis this morning. at this time patient denies chest pain, shortness of breath, fevers, chills, headache Related Data Home Medications ?Medication ?Instructions ?Recorded ?Confirmed atenolol 50 mg-chlorthalidone 25 1 tab PO DAILY 06/27/18 02/29/24 mg tablet levothyroxine 150 mcg tablet 150 mcg PO DAILYDM 11/15/22 02/29/24 escitalopram oxalate 10 mg tablet 10 mg PO DAILY 07/15/23 02/29/24 potassium chloride 10 mEq 10 meq PO DAILY 07/15/23 02/29/24 capsule,extended release probenecid 500 mg-colchicine 0.5 1 tab PO DAILY 07/15/23 02/29/24 mg tablet Previous Rx's ?Medication ?Instructions ?Recorded cefuroxime axetil 250 mg tablet 250 mg PO BID #14 tabs 07/16/23 aspirin 81 mg tablet,delayed 81 mg PO DAILY #0 tabs 07/18/23 release atorvastatin 80 mg tablet 80 mg PO HS #30 tabs 07/18/23 clopidogrel 75 mg tablet 75 mg PO DAILY #30 tabs 07/18/23 Allergies Allergy/AdvReac Type Severity Reaction Status Date / Time No Known Allergies Allergy Verified 07/16/23 08:09 [facility] <Tulio Ibarra MD - Last Filed: 04/12/24 15:37> [facility] Disclaimer: The information contained in this section may have been updated after the patient was seen, as this information can be updated by other users. Medical History (Updated 04/12/24 @ 17:23 by Reyna Velásquez MD) Hypertension Pancreatitis Gout Vitamin D deficiency Pyelonephritis Hypothyroidism (acquired) Hypokalemia Anxiety MDS (myelodysplastic syndrome) HTN (hypertension) Surgical History History of D&C History of colonoscopy History of cholecystectomy Family History COPD (chronic obstructive pulmonary disease) Cancer Asthma Social History (Updated 02/29/24 @ 14:21 by Krupa Arora RN) Smoking Status: Never smoker alcohol intake: never current occupational status: retired Travel in the last 8 weeks: None caffeine: Yes Other Medical History Have you received the Flu Vaccine for this season: Yes Have you received the Pneumonia Vaccine: Yes <Tulio Ibarra MD - Last Filed: 04/12/24 15:37> ROS Obtained: Yes All systems reviewed & no additional complaints except as documented Physical Exam <Tulio Ibarra MD - Last Filed: 04/12/24 15:37> General General appearance: alert and anxious Head Head exam: atraumatic Eye Eye exam: Present normal appearance and PERRL ENT ENT exam: Present normal oropharynx and other (Oozing from left nostril, mild dried blood) Neck Neck exam: Present normal inspection Chest Chest inspection: Present normal inspection and symmetric chest wall rise Respiratory Respiratory exam: Present normal lung sounds bilaterally; Absent respiratory distress Cardiovascular Cardiovascular exam: Present regular rate and normal rhythm Abdominal Exam Abdominal exam: Present soft; Absent distention, tenderness, guarding or rebound Neurological Exam Neurological exam: Present alert and oriented X3 Skin Skin exam: Present warm and dry Medical Decision Making <Tulio Ibarra MD - Last Filed: 04/12/24 15:37> Medical Records Screening: Per USPSTF and CDC recommendations, given the prevalence of disease in our region, it is our hospital?s policy to screen for HIV and viral Hepatitis for all patients aged 18 and over and those with ongoing risk factors. Chai Inquiry Pt receiving controlled substance: No Vital Signs: 04/12/24 13:51 04/12/24 13:56 04/12/24 14:00 Temperature 97.9 F Temperature Source Oral Pulse Rate 62 55 L Pulse Rate [Left Radial] 61 Respiratory Rate 16 18 16 Blood Pressure 158/68 H 138/73 Blood Pressure [Right Arm] 158/68 H Blood Pressure Mean 137 102 Blood Pressure Mean [Right Arm] 98 Blood Pressure Source [Right Arm] Automatic Cuff Blood Pressure Position [Right Arm] Sitting 02 Sat by Pulse Oximetry 98 97 96 Oxygen Delivery Method Room Air 04/12/24 14:30 04/12/24 15:01 04/12/24 15:30 Temperature Temperature Source Pulse Rate 54 L 53 L 52 L Pulse Rate [Left Radial] Respiratory Rate 18 18 Blood Pressure 99/51 L 121/51 L 127/58 L Blood Pressure [Right Arm] Blood Pressure Mean 71 69 Blood Pressure Mean [Right Arm] Blood Pressure Source [Right Arm] Blood Pressure Position [Right Arm] 02 Sat by Pulse Oximetry 96 98 99 Oxygen Delivery Method Room Air 04/12/24 16:01 04/12/24 16:31 04/12/24 17:01 Temperature Temperature Source Pulse Rate 56 L 55 L 58 L Pulse Rate [Left Radial] Respiratory Rate 16 Blood Pressure 130/61 152/64 H 198/84 H Blood Pressure [Right Arm] Blood Pressure Mean 84 Blood Pressure Mean [Right Arm] Blood Pressure Source [Right Arm] Blood Pressure Position [Right Arm] 02 Sat by Pulse Oximetry 98 98 98 Oxygen Delivery Method Room Air Room Air Lab Data Lab Results 04/12/24 14:20: WBC 6.9, RBC 4.92, Hgb 10.9 L, Hct 32.9 L, MCV 66.8 L, MCH 22.1 L, MCHC 33.0, RDW 15.8, Plt Count 156, MPV 7.5, Neut % (Auto) 46.3, Lymph % (Auto) 40.6, [place] % (Auto) 8.8, Eos % (Auto) 3.1, Baso % (Auto) 1.3, Neut # (Auto) 3.2, Lymph # (Auto) 2.8, [place] # (Auto) 0.6, Eos # (Auto) 0.2, Baso # (Auto) 0.1, PT 11.3, INR 1.01, APTT 25.2, HIV 1&2 Antibody Rapid Nonreactive, Blood Type A Positive, Antibody Screen Negative 04/12/24 14:20 Orders (Tests/Meds): ED MEDICATIONS Discontinued Medications Generic Name Dose Route Start Last Admin Trade Name Freq PRN Reason Stop Dose Admin Tranexamic Acid 1,000 mg/ 260 mls @ 520 mls/hr 04/12/24 15:05 04/12/24 15:52 Sodium Chloride IV 04/12/24 15:06 520 mls/hr ONCE ONE Administration Oxymetazoline HCl 15 ml 04/12/24 14:00 04/12/24 14:31 Oxymetazoline Nasal Maupin 0.05% 15ml NS 04/12/24 14:01 15 ml ONCE ONE Administration ORDERS Category Date Time Status Type and Screen Stat BBK 04/12/24 14:20 Completed Activated Partial Thrombo Time Stat Lab 04/12/24 14:20 Completed CBC w/Auto Diff [Complete Blood Count Auto Diff] Stat Lab 04/12/24 14:20 Completed HIV (1&2) Antibody Rapid Stat Lab 04/12/24 14:20 Completed Hep C Ab with Reflex to RNA Stat Lab 04/12/24 14:20 Received Heparin Anti-Xa Stat Lab 04/12/24 14:20 Received Prothrombin Time INR Stat Lab 04/12/24 14:20 Completed Medical Decision Narrative: In summary, this [age/sex] presents to the emergency department today with epistaxis. On initial evaluation patient is hemodynamically stable alert and in no acute distress. Patient is having epistaxis from her left nostril it is not profusely bleeding.. Differential diagnosis includes but is not limited to epistaxis, anterior nosebleed, posterior nosebleed, facial trauma. Based on these concerns, I ordered CBC and coags. Patient received Afrin for treatment. Labs personally reviewed demonstrate anemia but is elevated compared to previous results. On reassessment patient had venous oozing when she manipulated her nose, but quickly stopped. TXA was ordered and a Rhino Rocket was placed at bedside, but with no bleeding was deferred and will continue to observe. Of note, social determinants of health include poor health literacy. <Reyna Velásquez MD - Last Filed: 04/12/24 17:23> Vital Signs: 04/12/24 13:51 04/12/24 13:56 04/12/24 14:00 Temperature 97.9 F Temperature Source Oral Pulse Rate 62 55 L Pulse Rate [Left Radial] 61 Respiratory Rate 16 18 16 Blood Pressure 158/68 H 138/73 Blood Pressure [Right Arm] 158/68 H Blood Pressure Mean 137 102 Blood Pressure Mean [Right Arm] 98 Blood Pressure Source [Right Arm] Automatic Cuff Blood Pressure Position [Right Arm] Sitting 02 Sat by Pulse Oximetry 98 97 96 Oxygen Delivery Method Room Air 04/12/24 14:30 04/12/24 15:01 04/12/24 15:30 Temperature Temperature Source Pulse Rate 54 L 53 L 52 L Pulse Rate [Left Radial] Respiratory Rate 18 18 Blood Pressure 99/51 L 121/51 L 127/58 L Blood Pressure [Right Arm] Blood Pressure Mean 71 69 Blood Pressure Mean [Right Arm] Blood Pressure Source [Right Arm] Blood Pressure Position [Right Arm] 02 Sat by Pulse Oximetry 96 98 99 Oxygen Delivery Method Room Air 04/12/24 16:01 04/12/24 16:31 04/12/24 17:01 Temperature Temperature Source Pulse Rate 56 L 55 L 58 L Pulse Rate [Left Radial] Respiratory Rate 16 Blood Pressure 130/61 152/64 H 198/84 H Blood Pressure [Right Arm] Blood Pressure Mean 84 Blood Pressure Mean [Right Arm] Blood Pressure Source [Right Arm] Blood Pressure Position [Right Arm] 02 Sat by Pulse Oximetry 98 98 98 Oxygen Delivery Method Room Air Room Air Lab Data Lab results reviewed: Yes I reviewed the patient's lab results. Lab Results 04/12/24 14:20: WBC 6.9, RBC 4.92, Hgb 10.9 L, Hct 32.9 L, MCV 66.8 L, MCH 22.1 L, MCHC 33.0, RDW 15.8, Plt Count 156, MPV 7.5, Neut % (Auto) 46.3, Lymph % (Auto) 40.6, [place] % (Auto) 8.8, Eos % (Auto) 3.1, Baso % (Auto) 1.3, Neut # (Auto) 3.2, Lymph # (Auto) 2.8, [place] # (Auto) 0.6, Eos # (Auto) 0.2, Baso # (Auto) 0.1, PT 11.3, INR 1.01, APTT 25.2, HIV 1&2 Antibody Rapid Nonreactive, Blood Type A Positive, Antibody Screen Negative Orders (Tests/Meds): ED MEDICATIONS Discontinued Medications Generic Name Dose Route Start Last Admin Trade Name Marshallq PRN Reason Stop Dose Admin Tranexamic Acid 1,000 mg/ 260 mls @ 520 mls/hr 04/12/24 15:05 04/12/24 15:52 Sodium Chloride IV 04/12/24 15:06 520 mls/hr ONCE ONE Administration Oxymetazoline HCl 15 ml 04/12/24 14:00 04/12/24 14:31 Oxymetazoline Nasal Maupin 0.05% 15ml NS 04/12/24 14:01 15 ml ONCE ONE Administration ORDERS Category Date Time Status Type and Screen Stat BBK 04/12/24 14:20 Completed Activated Partial Thrombo Time Stat Lab 04/12/24 14:20 Completed CBC w/Auto Diff [Complete Blood Count Auto Diff] Stat Lab 04/12/24 14:20 Completed HIV (1&2) Antibody Rapid Stat Lab 04/12/24 14:20 Completed Hep C Ab with Reflex to RNA Stat Lab 04/12/24 14:20 Received Heparin Anti-Xa Stat Lab 04/12/24 14:20 Received Prothrombin Time INR Stat Lab 04/12/24 14:20 Completed Medical Decision Narrative: In summary, this [age/sex] presents to the emergency department today with epistaxis. On initial evaluation patient is hemodynamically stable alert and in no acute distress. Patient is having epistaxis from her left nostril it is not profusely bleeding.. Differential diagnosis includes but is not limited to epistaxis, anterior nosebleed, posterior nosebleed, facial trauma. Based on these concerns, I ordered CBC and coags. Patient received Afrin for treatment. Labs personally reviewed demonstrate anemia but is elevated compared to previous results. On reassessment patient had venous oozing when she manipulated her nose, but quickly stopped. TXA was ordered and a Rhino Rocket was placed at bedside, but with no bleeding was deferred and will continue to observe. Of note, social determinants of health include poor health literacy. Reassessment 4:50 PM patient continues to have hemorrhage that is very mild located left anterior septal region I soaked rapid Rhino and TXA and inserted this will reassess at 520. Reassessment 523 patient is hemostatic comfortable return precautions and follow-up instructions given to the patient she was discharged improved stable condition. Procedures <Reyna Velásquez MD - Last Filed: 04/12/24 17:23> Epistaxis Control Time Out Performed: No Nostril: left Direct Inspection: yes and anterior source identified Clots Removed by: blowing nose Device Inserted: nasal tampon (Rapid Rhino) Patient Tolerated Procedure: well and no complications Critical Care <Tulio Ibarra MD - Last Filed: 04/12/24 15:37> Critical Care Time Critical Care Time: No
[2024-04-12] MEDS: OXYMETAZOLINE NASAL SPRAY 0.05% 15ML 15 ML NS (14:31)
[2024-04-12 14:32] LABS: Basophils # 0.1 K/mm3 (0-0.2); Basophils % 1.3 % (0.1-2.0); Eosinophils # 0.2 K/mm3 (0.0-0.4); Eosinophils % 3.1 % (0.1-12.0); Hematocrit 32.9 % (37.0-47.0); Hemoglobin 10.9 g/dL (12.2-16.2); Lymphocytes # 2.8 K/mm3 (0.7-4.5); Lymphocytes % 40.6 % (10-50); Mean Corpuscular Hemoglobin 22.1 pg (27.0-31.2); Mean Corpuscular Volume 66.8 fl (81-99); Mean Platelet Volume 7.5 fl (7.4-10.4); Monocytes # 0.6 K/mm3 (0.1-1.0); Monocytes % 8.8 % (1.7-9.3); Neutrophils # 3.2 K/mm3 (1.8-7.8); Neutrophils % 46.3 % (37.0-80.0); Platelet Count 156 K/mm3 (142-424); Red Blood Count 4.92 M/mm3 (4.20-5.40); Red Cell Distribution Width 15.8 % (11.5-17.5); White Blood Count 6.9 K/mm3 (4.8-10.8)
[2024-04-12 14:48] LABS: Activated Partial Thrombo Time 25.2 seconds (22.8-30.6); INR 1.01 (0.9-1.1); Prothrombin Time 11.3 seconds (10.1-12.5)
[2024-04-12] MEDS: TRANEXAMIC ACID 1,000 MG in 0.9 % SODIUM CHLORIDE 250 ML 520 MG IV (15:52)
[2024-04-12 16:03] LABS: HIV (1&2) Antibody Rapid NONREACTIVE (NONREACTIVE)
[2024-04-14 08:08] LABS: HCV Ab Non Reactive (Non Reactive)
[2024-04-15 16:02] LABS: Heparin Anti-Xa >1.52 IU/mL (.)
== END 2024-04-12 17:39 | disposition home or self-care (01) ==
PROVIDERS: Emergency Provider Student in an Organized Health Care Education/Training Program; PCP Family Medicine
DX: R04.0 Epistaxis (principal)
CPT/HCPCS: 85025; 85520; 85610; 85730; 86803; 86850; 87389; 96374; 99283

== ENCOUNTER 2024-08-14 14:42 | Outpatient (CLI) | payer MEDICARE, SELFPAY ==
--- NOTE | 2024-08-14 14:45 | MM_ITS ---
PROCEDURE INFORMATION: Exam: MG Bilateral Screening 3D Mammography Exam date and time: 08/14/2024 2:59 PM Age: 83 years old Clinical indication: Screening examination TECHNIQUE: Imaging protocol: Bilateral Screening tomosynthesis and 2D mammography including computer-aided detection (CAD) when performed. COMPARISON: 1. MG MM DIG SCREENING MAMM BI W/CAD 01/16/2023 10:14 AM 2. MG MM DIG SCREENING MAMM BI W/CAD 09/06/2021 10:25 AM FINDINGS: MAMMOGRAPHY: Breast composition: There are scattered areas of fibroglandular density. Mass: None. Architectural distortion: None. Calcifications: No suspicious calcifications. Asymmetric density: None. Skin thickening: None. Axillary adenopathy: None. IMPRESSION: No mammographic evidence of malignancy. Annual screening is recommended unless otherwise clinically indicated. ASSESSMENT: BI-RADS Category 1: Negative.
== END 2024-08-14 23:59 | disposition home or self-care (01) ==
LOC: RAD 14:42
PROVIDERS: PCP Family Medicine; Visit Provider Family Medicine
DX: Z12.31 Encounter for screening mammogram for malignant neoplasm of breast (principal)
CPT/HCPCS: 77063; 77067